=== PATIENT | male | born 1940 | race Two or more races ===

== ENCOUNTER 2016-11-29 13:57 | Inpatient (IN) | payer MEDICARE ==
[~2016-11-29] VITALS: Ht 167.6 cm; Wt 91.0 kg
[~2016-11-29 13:57] MED LIST: AMIT10TA PO; ASPI-482 PO; ASPI325T11 PO; ATOR10TA60 PO; FURO-68 PO; HYDR12.58 PO; MECL12.5 PO; METF500T4 PO; RANI150C PO; SITA1TAB7 PO; VALS160T3 PO
[2016-11-29 14:35] VITALS: BP 126/67
[2016-11-29] MEDS ORDERED: CLON0.1T PO (15:05)
[2016-11-29] MEDS ORDERED: FUROSEMIDE 40 MG/4 ML VIAL IVP ONE (15:30)
--- NOTE | 2016-11-29 15:52 | EKG ---
[facility] [address] [place] [address] Test Date: 2016-11-29 Test Time: 15:48:31 Pat Name: RAVI RICKS Department: Room: [facility] Gender: M Spray Gun Operator: JOSHUA : 1940 Requested By: DEBRA ARNOLD Order Number: [id number] Reading MD: Ashley Pollock Measurements Intervals Mcdade Rate: 107 P: 29 ME: 166 QRS: -64 QRSD: 92 T: 62 QT: 334 QTc: 445 Interpretive Statements SINUS TACHYCARDIA INCOMPLETE RIGHT BUNDLE BRANCH BLOCK QRS(T) CONTOUR ABNORMALITY CONSIDER INFERIOR INFARCT T ABNORMALITY IN HIGH LATERAL LEADS ABNORMAL ECG Electronically Signed On 12-01-2016 20:24:07 CRM ANALYST by Ashley Pollock
--- NOTE | 2016-11-29 16:03 | PDOC2 ---
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 Reports also of short distance NAVARRO including low weighted dumbbells inducing SOA. Denies any CP, palpitations. Denies any CAD, VTE, CHF. Denies any orthopnea, or PND. He went to his PCPs office today and was noted with tachycardia in the 120s. Denies any recreational drugs, excessive caffeinated beverages. Denies any recent falls or injury. No nausea vomiting or diarrhea PAST MEDICAL HISTORY Cardiovascular: HTN, Syncope, Hyperlipidemia GI: GERD Musculoskeletal: Osteoarthritis, Other (Polio) Infectious disease: Other Endocrine: Diabetes (2) PAST SURGICAL HISTORY Past Surgical History: Other (ankle surgeries) FAMILY HISTORY Family History: Coronary Artery Disease (mother SCD in her 30s) SOCIAL HISTORY Smoke: No (remote quit tobacco) ALCOHOL: none Drugs: None Lives: with Family CURRENT MEDICATIONS CURRENT MEDICATIONS Current Medications Medications (Trade) Dose Ordered Sig/Orin Route PRN Reason Start Time Stop Time Status Last Admin Dose Admin Furosemide (Lasix) 40 mg 1X ONCE IVP 11/29/16 15:30 11/29/16 15:36 DC 11/29/16 15:56 ALLERGIES ALLERGIES: Coded Allergies: No Known Drug Allergies (Unverified , 03/22/15) ROS Review of System 14 point ROS evaluated with pertinent positives noted per HPI PHYSICAL EXAM General: Alert, Oriented X3, Cooperative, No acute distress HEENT: Atraumatic, Mucous membr. moist/pink Lungs: Clear to auscultation, Normal air movement Heart: Regular rate (sinus tach), Normal S1, Normal S2, Other (2/6 systolic murmur to LLS border) Abdomen: Soft, No tenderness, Other (truncal obesity) Extremities: No cyanosis, Other (3+ bilateral LE pitting edema) Skin: No breakdown, No significant lesion Neuro: Normal speech, Sensation intact Psych/Mental Status: Mental status NL, Mood NL MUSCULOSKELETAL: Osteoarthritic changes both hands ECHOCARDIOGRAM ECHOCARDIOGRAM <Conclusion> The left ventricle is normal size. There is normal left ventricular wall thickness. The systolic function is normal with an ejection fraction of 60%. The diastolic function is normal There is no evidence of significant pericardial effusion. There is no mitral valve stenosis. Doppler and Color Flow revealed trace mitral regurgitation. The left atrium is of a normal size The aortic valve is normal in structure and function. The aortic valve is trileaflet. Doppler and Color Flow revealed no significant aortic regurgitation. There is no significant aortic valvular stenosis. The right ventricle is of a normal size with normal systolic function Doppler and Color Flow revealed trace tricuspid regurgitation. The PA pressure was estimated at 24 mmHg. The pulmonic valve is normal. DATE: 08/21/162132 ASSESSMENT/PLAN ASSESSMENT/PLAN 1. Sinus Tachycardia: Likely reactive/extracardiac. No CHF. Pro NT BNP 27. CP free. 2. Dyspnea on exertion with leg edema: deconditioning? venous insufficiency? TTE with normal PAP 2. HTN: controlled 3. HLP/DM2 4. Hx of syncope: 08/2016 no further episode 5. Hx of cirrhosis: remote ETOH Recommendations 1. EKG sinus tach with incomplete RBBB and LAFB. TTE with grade 1 diastolic dysfunction otherwise unremarkable for any significant changes. 2. TSH level 3. Venous Dopplex to LE, would recommend CTA if positive for VTE. Defer to PCP. Problems: ART BARRIENTOS MD 11/30/16 1507: CARDIAC CONSULT ALLERGIES ALLERGIES: Coded Allergies: No Known Drug Allergies (Unverified , 03/22/15) ASSESSMENT/PLAN ASSESSMENT/PLAN Patient seen and examined. Agree with WOUND CARE SPECIALIST's assessment and plan. Sinus tachycardia reactive. No clinical evidence for congestive heart failure. Agree with venous duplex scan to rule out venous reflux as a cause for lower extremity edema. 2-D echo showed normal LV function without any wall motion abnormalities. We'll consider ischemic evaluation in the form of stress test as an outpatient. Thank you for your consultation. Problems: DAMIAN MUÑOZ APRN Nov 29, 2016 16:03 ART BARRIENTOS MD Nov 30, 2016 15:07
--- NOTE | 2016-11-29 16:06 | RAD ---
EXAM: Chest one view. HISTORY: Congestive heart failure. COMPARISON: 08/20/2016. FINDINGS: A frontal view of the chest is obtained. There is an airspace opacity medially in the right base, increased since the prior study. There is no pneumothorax or pleural effusion. The heart is not enlarged. IMPRESSION: 1. Airspace opacity medially in the right base may indicate atelectasis or pneumonia. Follow-up to resolution is recommended.
[2016-11-29] MEDS ORDERED: POTASSIUM CHLORIDE 20 MEQ TABLET.ER. PO ONE (16:15)
[2016-11-29] MEDS ORDERED: DEXTROSE 50% 25 GM / 50ML DISP.SYRIN. IV PRN (16:15)
[2016-11-29] MEDS ORDERED: CLONIDINE HCL 0.1 MG TABLET PO PRN (16:15)
[2016-11-29 16:29] LABS: ALBUMIN 4.2 g/dL (3.4-5.0); ALBUMIN/GLOBULIN RATIO 1.1 (1.0-1.7); POTASSIUM 4.1 mmol/L (3.5-5.1); TOTAL BILIRUBIN 0.5 mg/dL (0.2-1.0)
--- NOTE | 2016-11-29 16:45 | CARD ---
APPROVED REPORT EXAM: Two-dimensional and M-mode echocardiogram with Doppler and color Doppler. Other Information Quality : GoodHR: 108bpm Rhythm : Tachycardia INDICATION Murmur RISK FACTORS Obesity 2D DIMENSIONS RVDd2.1 (2.9-3.5cm)Left Atrium(2D)2.4 (1.6-4.0cm) IVSd1.2 (0.7-1.1cm)Aortic Root(2D)2.5 (2.0-3.7cm) LVDd2.9 (3.9-5.9cm)LVOT Diameter2.1 (1.8-2.4cm) PWd1.1 (0.7-1.1cm)LVDs2.1 (2.5-4.0cm) FS (%) 28.9 %SV18.6 ml LVEF(%)57.2 (>50%) Aortic Valve AoV Peak Mode.162.9cm/sAoV VTI27.1cm AO Peak GR.10.6mmHgLVOT Peak Mode.140.6cm/s AO Mean GR.6mmHgAVA (VMAX)2.86cm2 Mitral Valve MV E Zwtgkgym84.5cm/sMV E Peak Gr.10mmHg MV DECEL [id number] A Fmtcaxrp090.7cm/s MV E Mean Gr.4mmHgE/A Ratio0.6 MV A [id number] Pulmonary Valve PV Peak Aydiepdj205.1cm/s Pulmonary Vein S1 Lgezxdyq83.3cm/sD2 Esuohuyj03.0cm/s PVa stolqvak97gpcf LEFT VENTRICLE The left ventricle cavity is small. There is mild concentric left ventricular hypertrophy. The left v entricular systolic function is normal and the ejection fraction is within normal range. The Ejection Fraction is 65-70%. There is normal LV segmental wall motion. Transmitral Doppler flow pattern is Gr eren I-abnormal relaxation pattern. RIGHT VENTRICLE The right ventricle is normal size. There is normal right ventricular wall thickness. The right ventr icular systolic function is normal. ATRIA The left atrium size is normal. The right atrium size is normal. The interatrial septum is intact wit h no evidence for an atrial septal defect or patent foramen ovale as noted on 2-D or Doppler imaging. AORTIC VALVE The aortic valve is mildly sclerotic. Doppler and Color Flow revealed no significant aortic regurgita tion. There is no significant aortic valvular stenosis. MITRAL VALVE The mitral valve leaflets are thickened. There is no evidence of mitral valve prolapse. There is no m itral valve stenosis. Doppler and Color Flow revealed no mitral valve regurgitation noted. TRICUSPID VALVE The tricuspid valve is normal in structure and function. Doppler and Color Flow revealed no tricuspid valve regurgitation noted. PULMONIC VALVE Doppler and Color Flow revealed no pulmonic valvular regurgitation. There is no pulmonic valvular wilfredo nosis. GREAT VESSELS The aortic root is normal in size. The ascending aorta is normal in size. The IVC is normal in size a nd collapses >50% with inspiration. PERICARDIAL EFFUSION There is no evidence of significant pericardial effusion. Critical Notification Critical Value: No <Conclusion> The left ventricular systolic function is normal and the ejection fraction is within normal range. Th e Ejection Fraction is 65-70%. There is normal LV segmental wall motion.
[2016-11-29] MEDS: INSULIN ASPART 300 UNITS/3 ML INSULN.PEN SQ SCH (17:00)
[2016-11-29] MEDS: METFORMIN 500 MG TABLET. PO SCH (18:18)
[2016-11-29 19:58] VITALS: BP 141/73
[2016-11-29 21:16] LABS: BASO % 1 % (0-3); EOS % 0 % (0-3); HEMOGLOBIN 15.4 g/dL (13.0-17.5); LYMPH # 1.6 x10^3/uL (1.0-4.8); LYMPH % 15 % (24-48); MEAN CORPUSCULAR HEMOGLOBIN 31 pg (25-35); MEAN CORPUSCULAR HGB CONC 33 g/dL (31-37); MEAN CORPUSCULAR VOLUME 92 fL (79-100); MONO % 6 % (0-9); NEUT % 79 % (31-73); PLATELET COUNT 324 x10^3/uL (140-400); RED BLOOD COUNT 4.98 x10^6/uL (4.30-5.70); WHITE BLOOD COUNT 10.6 x10^3/uL (4.0-11.0)
[2016-11-29] MEDS: AMITRIPTYLINE HCL 10 MG TABLET PO SCH (21:18)
[2016-11-29] MEDS: FAMOTIDINE 20 MG TABLET. PO SCH (21:18)
[2016-11-29] MEDS: ATORVASTATIN CALCIUM 10 MG TABLET. PO SCH (21:18)
[2016-11-29 23:15] VITALS: BP 124/73
[2016-11-30 03:13] VITALS: BP 112/67
[2016-11-30 06:06] LABS: CALCIUM 10.3 mg/dL (8.5-10.1); CREATININE 0.9 mg/dL (0.7-1.3); GFR 82.5; POTASSIUM 4.4 mmol/L (3.5-5.1)
[2016-11-30 06:18] LABS: BASO % 0 % (0-3); EOS % 1 % (0-3); HEMOGLOBIN 12.1 g/dL (13.0-17.5); LYMPH # 1.8 x10^3/uL (1.0-4.8); LYMPH % 17 % (24-48); MEAN CORPUSCULAR HEMOGLOBIN 30 pg (25-35); MEAN CORPUSCULAR HGB CONC 34 g/dL (31-37); MEAN CORPUSCULAR VOLUME 89 fL (79-100); MONO % 8 % (0-9); NEUT % 74 % (31-73); PLATELET COUNT 275 x10^3/uL (140-400); RED BLOOD COUNT 4.04 x10^6/uL (4.30-5.70); RED CELL DISTRIBUTION WIDTH 13.4 % (11.5-14.5)
[2016-11-30 07:00] VITALS: BP 146/73
--- NOTE | 2016-11-30 07:54 | RAD ---
Portable chest, 11/30/2016: History: Congestive heart failure Comparison is made to yesterday's study. The heart size and pulmonary vascularity are normal. The right base is now clear. No acute infiltrates are seen. There is no evidence of pleural fluid. IMPRESSION: No acute abnormality is detected.
[2016-11-30] MEDS: INSULIN ASPART 300 UNITS/3 ML INSULN.PEN SQ SCH ×3 (08:00→17:50)
--- NOTE | 2016-11-30 08:12 | PDOC1 ---
HISTORY AND PHYSICAL Chief Complaint Chief Complaint This 76 year old male has been admitted with a chief complaint of rapid heart rate and lower extremity swelling. He was seen by Dr. Yoo in the office yesterday and his swelling was worse. He gives h/o worsening dyspnea on exertion with use accessory muscles after less than 15ft ambulation. An EKG revealed ST and he had increased bilateral lower extremity edema. He was directly admitted to [facility] with acute on chronic systolic CHF. 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 He walks with walker in attempt to strengthen lower extremity strength. 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 Medications Medications reviewed and reconciled Allergy Allergies Coded Allergies Type Severity Reaction Last Updated Verified No Known Drug Allergies 03/22/15 No Physical Exam Physical Exam General appearance - alert, chronically ill appearing, and in no distress Mental Status - alert, oriented to person, place, and time, affect appropriate to mood Head - normal Chest - clear to auscultation, no wheezes, rales or rhonchi, symmetric air entry Heart - S1 and S2 normal Abdomen - soft, nontender, nondistended, obese, BS+ Neurological - no acute focal neurological deficit noted Musculoskeletal - atrophy bilateral lower leg muscles Extremities - no pedal edema Skin - warm and dry VTE Prophylaxis Ordered VTE Prophylaxis Devices: Yes VTE Pharmacological Prophylaxi: Yes Assessment Labs Laboratory Tests Test 11/29/16 16:00 11/29/16 16:38 11/29/16 20:30 11/29/16 21:19 Sodium Level 143mmol/L (136-145) Potassium Level 4.1mmol/L (3.5-5.1) Chloride Level 104mmol/L (98-107) Carbon Dioxide Level 27mmol/L (21-32) Anion Gap 12 (6-14) Blood Urea Nitrogen 25mg/dL (8-26) Creatinine 1.0mg/dL (0.7-1.3) Estimated GFR (Cockcroft-Gault) 73.0 BUN/Creatinine Ratio 25 (6-20) Glucose Level 156mg/dL (70-99) Calcium Level 10.0mg/dL (8.5-10.1) Total Bilirubin 0.5mg/dL (0.2-1.0) Aspartate Amino Transf (AST/SGOT) 19U/L (15-37) Alanine Aminotransferase (ALT/SGPT) 35U/L (16-63) Alkaline Phosphatase 78U/L (46-116) Troponin I Quantitative < 0.017ng/mL (0.000-0.055) CY-Sdt-L-Type Natriuretic Peptide 27pg/mL (0-124) Total Protein 8.0g/dL (6.4-8.2) Albumin 4.2g/dL (3.4-5.0) Albumin/Globulin Ratio 1.1 (1.0-1.7) Glucose (Fingerstick) 150mg/dL (70-99) 187mg/dL (70-99) White Blood Count 10.6x10^3/uL (4.0-11.0) Red Blood Count 4.98x10^6/uL (4.30-5.70) Hemoglobin 15.4g/dL (13.0-17.5) Hematocrit 46.0% (39.0-53.0) Mean Corpuscular Volume 92fL (79-100) Mean Corpuscular Hemoglobin 31pg (25-35) Mean Corpuscular Hemoglobin Concent 33g/dL (31-37) Red Cell Distribution Width 14.0% (11.5-14.5) Platelet Count 324x10^3/uL (140-400) Neutrophils (%) (Auto) 79% (31-73) Lymphocytes (%) (Auto) 15% (24-48) Monocytes (%) (Auto) 6% (0-9) Eosinophils (%) (Auto) 0% (0-3) Basophils (%) (Auto) 1% (0-3) Neutrophils # (Auto) 8.4x10^3uL (1.8-7.7) Lymphocytes # (Auto) 1.6x10^3/uL (1.0-4.8) Monocytes # (Auto) 0.6x10^3/uL (0.0-1.1) Eosinophils # (Auto) 0.0x10^3/uL (0.0-0.7) Basophils # (Auto) 0.0x10^3/uL (0.0-0.2) D-Dimer (Rianna) < 0.27ug/mlFEU (0.00-0.50) Test 11/30/16 04:30 White Blood Count 11.0x10^3/uL (4.0-11.0) Red Blood Count 4.04x10^6/uL (4.30-5.70) Hemoglobin 12.1g/dL (13.0-17.5) Hematocrit 36.0% (39.0-53.0) Mean Corpuscular Volume 89fL (79-100) Mean Corpuscular Hemoglobin 30pg (25-35) Mean Corpuscular Hemoglobin Concent 34g/dL (31-37) Red Cell Distribution Width 13.4% (11.5-14.5) Platelet Count 275x10^3/uL (140-400) Neutrophils (%) (Auto) 74% (31-73) Lymphocytes (%) (Auto) 17% (24-48) Monocytes (%) (Auto) 8% (0-9) Eosinophils (%) (Auto) 1% (0-3) Basophils (%) (Auto) 0% (0-3) Neutrophils # (Auto) 8.1x10^3uL (1.8-7.7) Lymphocytes # (Auto) 1.8x10^3/uL (1.0-4.8) Monocytes # (Auto) 0.9x10^3/uL (0.0-1.1) Eosinophils # (Auto) 0.1x10^3/uL (0.0-0.7) Basophils # (Auto) 0.0x10^3/uL (0.0-0.2) Sodium Level 142mmol/L (136-145) Potassium Level 4.4mmol/L (3.5-5.1) Chloride Level 101mmol/L (98-107) Carbon Dioxide Level 26mmol/L (21-32) Anion Gap 15 (6-14) Blood Urea Nitrogen 25mg/dL (8-26) Creatinine 0.9mg/dL (0.7-1.3) Estimated GFR (Cockcroft-Gault) 82.5 Glucose Level 152mg/dL (70-99) Calcium Level 10.3mg/dL (8.5-10.1) Laboratory Tests Test 11/29/16 16:00 11/29/16 16:38 11/29/16 20:30 11/29/16 21:19 Sodium Level 143mmol/L (136-145) Potassium Level 4.1mmol/L (3.5-5.1) Chloride Level 104mmol/L (98-107) Carbon Dioxide Level 27mmol/L (21-32) Anion Gap 12 (6-14) Blood Urea Nitrogen 25mg/dL (8-26) Creatinine 1.0mg/dL (0.7-1.3) Estimated GFR (Cockcroft-Gault) 73.0 BUN/Creatinine Ratio 25 (6-20) Glucose Level 156mg/dL (70-99) Calcium Level 10.0mg/dL (8.5-10.1) Total Bilirubin 0.5mg/dL (0.2-1.0) Aspartate Amino Transf (AST/SGOT) 19U/L (15-37) Alanine Aminotransferase (ALT/SGPT) 35U/L (16-63) Alkaline Phosphatase 78U/L (46-116) Troponin I Quantitative < 0.017ng/mL (0.000-0.055) DP-Rtf-S-Type Natriuretic Peptide 27pg/mL (0-124) Total Protein 8.0g/dL (6.4-8.2) Albumin 4.2g/dL (3.4-5.0) Albumin/Globulin Ratio 1.1 (1.0-1.7) Glucose (Fingerstick) 150mg/dL (70-99) 187mg/dL (70-99) White Blood Count 10.6x10^3/uL (4.0-11.0) Red Blood Count 4.98x10^6/uL (4.30-5.70) Hemoglobin 15.4g/dL (13.0-17.5) Hematocrit 46.0% (39.0-53.0) Mean Corpuscular Volume 92fL (79-100) Mean Corpuscular Hemoglobin 31pg (25-35) Mean Corpuscular Hemoglobin Concent 33g/dL (31-37) Red Cell Distribution Width 14.0% (11.5-14.5) Platelet Count 324x10^3/uL (140-400) Neutrophils (%) (Auto) 79% (31-73) Lymphocytes (%) (Auto) 15% (24-48) Monocytes (%) (Auto) 6% (0-9) Eosinophils (%) (Auto) 0% (0-3) Basophils (%) (Auto) 1% (0-3) Neutrophils # (Auto) 8.4x10^3uL (1.8-7.7) Lymphocytes # (Auto) 1.6x10^3/uL (1.0-4.8) Monocytes # (Auto) 0.6x10^3/uL (0.0-1.1) Eosinophils # (Auto) 0.0x10^3/uL (0.0-0.7) Basophils # (Auto) 0.0x10^3/uL (0.0-0.2) D-Dimer (Rianna) < 0.27ug/mlFEU (0.00-0.50) Test 11/30/16 04:30 White Blood Count 11.0x10^3/uL (4.0-11.0) Red Blood Count 4.04x10^6/uL (4.30-5.70) Hemoglobin 12.1g/dL (13.0-17.5) Hematocrit 36.0% (39.0-53.0) Mean Corpuscular Volume 89fL (79-100) Mean Corpuscular Hemoglobin 30pg (25-35) Mean Corpuscular Hemoglobin Concent 34g/dL (31-37) Red Cell Distribution Width 13.4% (11.5-14.5) Platelet Count 275x10^3/uL (140-400) Neutrophils (%) (Auto) 74% (31-73) Lymphocytes (%) (Auto) 17% (24-48) Monocytes (%) (Auto) 8% (0-9) Eosinophils (%) (Auto) 1% (0-3) Basophils (%) (Auto) 0% (0-3) Neutrophils # (Auto) 8.1x10^3uL (1.8-7.7) Lymphocytes # (Auto) 1.8x10^3/uL (1.0-4.8) Monocytes # (Auto) 0.9x10^3/uL (0.0-1.1) Eosinophils # (Auto) 0.1x10^3/uL (0.0-0.7) Basophils # (Auto) 0.0x10^3/uL (0.0-0.2) Sodium Level 142mmol/L (136-145) Potassium Level 4.4mmol/L (3.5-5.1) Chloride Level 101mmol/L (98-107) Carbon Dioxide Level 26mmol/L (21-32) Anion Gap 15 (6-14) Blood Urea Nitrogen 25mg/dL (8-26) Creatinine 0.9mg/dL (0.7-1.3) Estimated GFR (Cockcroft-Gault) 82.5 Glucose Level 152mg/dL (70-99) Calcium Level 10.3mg/dL (8.5-10.1) Plan Plan 1. ST with progressive dyspnea on exertion 2. Chronic diastolic CHF normal EF not acute 3. Edema lower extremities 4. 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 hyperlipidemia 7. late effects poliomyelitis 8. h/o sleep apnea 9. GERD 10, OA PLAN: ST BS tele SR 80s diastolic CHF not acute BNP 27 Current Lasix 40mg po and HCTZ 12.5mg (diovan/HCTZ combo) Admit wt 204.6# Edema LE resolved this AM abnormal CXR progressive dyspnea with exertion consult pulmonary DM II FSBS/SSI BS 150-187 DVT/GI prophylaxis lovenox pepcid For more details regarding further plans, please refer to the orders. VINEET SIMON APRN Nov 30, 2016 08:12
[2016-11-30] MEDS ORDERED: FUROSEMIDE 40 MG TABLET PO SCH (09:00)
[2016-11-30] MEDS: METFORMIN 500 MG TABLET. PO SCH (09:01)
[2016-11-30] MEDS: HYDROCHLOROTHIAZIDE 12.5 MG CAPSULE. PO SCH (09:01)
[2016-11-30] MEDS: FAMOTIDINE 20 MG TABLET. PO SCH ×4 (09:01→20:54)
[2016-11-30] MEDS: LINAGLIPTIN 5 MG TABLET PO SCH (09:02)
[2016-11-30] MEDS: ASPIRIN ENTERIC COATED 325 MG TABLET.DR. PO SCH (09:02)
[2016-11-30] MEDS: LOSARTAN POTASSIUM 50 MG TABLET. PO SCH (09:02)
[2016-11-30] MEDS: POTASSIUM CHLORIDE 20 MEQ TABLET.ER. PO SCH (09:02)
[2016-11-30] MEDS: FUROSEMIDE 20 MG/2 ML VIAL IVP SCH ×2 (09:02→14:51)
[2016-11-30] MEDS: ENOXAPARIN 40 MG/0.4 ML DISP.SYRIN. SQ SCH (09:03)
--- NOTE | 2016-11-30 10:41 | DISCH ---
DISCHARGE FINAL DIAGNOSIS Problems Medical Problems: (1) CHF (congestive heart failure) Status: Acute CONDITION ON DISCHARGE: Stable HOME HEALTH: Yes PT. HAS FUNCTIONAL LIMITATIONS: Yes FACE TO FACE ENCOUNTER: Yes POST DISCHARGE ORDERS ACTIVITY ORDERS: Activity as tolerated WEIGHT BEARING STATUS: As tolerated DIET AFTER DISCHARGE: Cardiac FOLLOW-UP PHYSICIAN FOLLOW-UP: Dr. Yoo 3-5 days TREATMENT/EQUIPMENT ORDERS ADAPTIVE EQUIPMENT NEEDED: VINEET Devi APRN Nov 30, 2016 10:41
[2016-11-30] MEDS ORDERED: VALS1TAB8 PO (10:44)
[2016-11-30] MEDS ORDERED: POTA20TA4 PO (10:44)
[2016-11-30] MEDS ORDERED: FURO-69 PO (10:44)
--- NOTE | 2016-11-30 10:47 | DISCH ---
DISCHARGE WITH HOME HEALTH DISCHARGE INFORMATION: Final Diagnosis: Problems Medical Problems: (1) CHF (congestive heart failure) Status: Acute Condition on Discharge: Stable HOME HEALTH: Face to Face: I certify this patient is under my care and that I, or a nurse practitioner or physician's assistant spa manager working with me, had a face to face encounter that meets the physician face to face encounter requirements with this patient on 11/30/16. Medical Condition(s): CHF Custodial For: Assess Cardiopulm Status Physical Therapy For: Evalulation/Treatment Occupational Therapy For: Evaluation/Treatment Patient meets Homebound Statu: Extreme weakness w/ amb. FOLLOW-UP: Follow up with: Dr. Yoo in 3-5 days TREATMENT/EQUIPMENT ORDERS Adaptive Equipment Issued: Devin CERTIFICATION STATEMENT: Certification Statement: Certification Statement: Based on the above finding, I certify that this patient is confined to the home and needs intermittent group home care, physical therapy and/or speech therapy, or continues to need occupational therapy.~ This patient is under my care, and I have initiated the establishment of the plan of care.~ This patient will be followed by myself or a community physician who will periodically review the plan of care. VINEET SIMON APRN Nov 30, 2016 10:47
[2016-11-30 10:56] VITALS: BP 144/83
--- NOTE | 2016-11-30 11:47 | PDOC ---
Provider Note Provider Note dictated STALIN JAY MD Nov 30, 2016 11:47
[2016-11-30] MEDS ORDERED: CONTRAST GIVEN MC PRN (12:00)
--- NOTE | 2016-11-30 12:28 | CONS ---
DATE OF CONSULTATION: ATTENDING PHYSICIAN: Dr. Yoo. REASON FOR CONSULTATION: Dyspnea. HISTORY OF PRESENT ILLNESS: The patient is a pleasant 76-year-old male who smoked for about 24 years before quitting more than 30 years ago. He used to be an alcoholic, but he quit drinking 33 years ago. He was brought into the hospital complaining of mild lower extremity swelling and also has been short of breath for the past 2 months. He has no chest pain, no wheezing, no cough, no fever, no chills. He complained of a rapid heart rate. The patient had echocardiogram done, which showed no evidence of any LV dysfunction. Valves looked normal. His venous Dopplers were negative for DVT as well. His chest x-ray has been reviewed by me and it appears to be clear. He did gain 9 pounds in the last few months. PAST MEDICAL HISTORY: History of hypertension, syncope, hyperlipidemia and history of sleep apnea, but insurance did not qualify for CPAP, history of diverticulosis, history of cirrhosis, history of low back pain, osteoarthritis, and type 2 diabetes. PAST SURGICAL HISTORY: None. ALLERGIES: None. MEDICATIONS: All reviewed as listed in the MRAD including Lovenox for DVT prophylaxis. REVIEW OF SYSTEMS: Twelve-point systems obtained. Pertinent positives discussed in history of present illness, otherwise noncontributory. All systems that were negative were reviewed as well. SOCIAL HISTORY: Smoked for 24 years before quitting 30 years ago and he used to drink alcohol heavily, but quit 33 years ago as well. PHYSICAL EXAMINATION: VITAL SIGNS: Blood pressure 144/83, pulse of 95% on room air, afebrile. HEENT: Sclerae nonicteric. NECK: Supple. LUNGS: Diminished breath sounds posteriorly, but clear anteriorly. CARDIOVASCULAR: Regular rate. ABDOMEN: Soft, distended secondary to obesity. EXTREMITIES: With trace pitting edema. LABORATORY DATA: Reviewed. White cell count 11.0, hemoglobin 12.1 and platelets are 275. His chemistries with a BUN 25, creatinine 0.9. His AST 19, ALT 35, and bilirubin 0.5. IMPRESSION: 1. Unexplained dyspnea for the past 2 months. Chest x-ray without any congestive heart failure. Echo is normal. I suspect the etiology could be physical deconditioning related to sedentary lifestyle and weight gain of 9 pounds in last 2 months. However, the possibility of thromboembolic disease cannot be ruled out. He has history of cirrhosis, but his LFTs and coags are normal. The possibility of hepatopulmonary syndrome would also be in the differential diagnosis. 2. History of tobacco use for 24 years, but quit 30 years ago. 3. History of alcoholism, but quit 30 years ago. RECOMMENDATIONS: 1. We will do a 6-minute walk test, if he can ambulate for [address] angiogram. 3. Ultrasound of the liver. 4. We will do PFTs as an outpatient. 5. We will make further recommendations after review of the above tests. STALIN JYA MD DR: MELISSA/ki JOB#: [id number] / [id number] HONG
[2016-11-30 12:32] LABS: HEMATOCRIT 43.5 % (39.0-53.0); HEMOGLOBIN 14.3 g/dL (13.0-17.5)
[2016-11-30] MEDS ORDERED: IOHEXOL 300 MG/ML 75 ML VIAL IV ONE (13:00)
[2016-11-30 15:08] VITALS: BP 166/80
--- NOTE | 2016-11-30 15:19 | RAD ---
PQRS Compliance Statement: One or more of the following individualized dose reduction techniques were utilized for this examination: 1. Automated exposure control 2. Adjustment of the mA and/or kV according to patient size 3. Use of iterative reconstruction technique CTA of the chest with contrast, 11/30/2016: History: Shortness of breath, tachycardia, leg swelling Multidetector CT imaging was performed following an IV bolus injection of iodinated contrast material. Multiplanar reconstructions were produced including coronal MIP images. The main pulmonary artery is slightly enlarged. No filling defects are seen within the central pulmonary arteries to suggest pulmonary emboli. There is calcific plaquing of the thoracic aorta without evidence of aneurysm. Minimal coronary artery calcification is present. The heart is not enlarged. Small mediastinal lymph nodes are noted without definite pathologic enlargement. No hilar adenopathy is seen. There is a calcified granuloma in the left lower lobe. There are mild scattered linear opacities, particularly in the lower lobes compatible with atelectasis and/or scarring. No pulmonary mass or significant consolidation is seen. There is no evidence of pleural fluid. Incidental note is made of several small intrarenal calculi on the right. Two small well-defined low density hepatic lesions are probably cysts. There is a mild thoracolumbar scoliosis with moderate multilevel degenerative change. IMPRESSION: 1. No CT evidence of central pulmonary emboli. 2. Mild bibasilar linear atelectasis and/or scarring. 3. Minimal coronary artery calcification. 4. Small right intrarenal calculi. 5. Hepatic cysts.
[2016-11-30] MEDS: ACETAMINOPHEN 325 MG TABLET. PO PRN (19:13)
[2016-11-30 19:50] VITALS: BP 136/73
[2016-11-30] MEDS: AMITRIPTYLINE HCL 10 MG TABLET PO SCH (20:49)
[2016-11-30] MEDS: ATORVASTATIN CALCIUM 10 MG TABLET. PO SCH (20:49)
[2016-11-30 23:38] VITALS: BP 145/67
[2016-12-01 03:50] VITALS: BP 139/73
[2016-12-01 06:22] LABS: BASO % 1 % (0-3); EOS % 2 % (0-3); HEMATOCRIT 44.2 % (39.0-53.0); HEMOGLOBIN 14.6 g/dL (13.0-17.5); LYMPH # 2.5 x10^3/uL (1.0-4.8); LYMPH % 30 % (24-48); MEAN CORPUSCULAR HEMOGLOBIN 31 pg (25-35); MEAN CORPUSCULAR HGB CONC 33 g/dL (31-37); MEAN CORPUSCULAR VOLUME 93 fL (79-100); MONO % 7 % (0-9); NEUT % 60 % (31-73); PLATELET COUNT 284 x10^3/uL (140-400); RED BLOOD COUNT 4.77 x10^6/uL (4.30-5.70); RED CELL DISTRIBUTION WIDTH 14.6 % (11.5-14.5); WHITE BLOOD COUNT 8.4 x10^3/uL (4.0-11.0)
[2016-12-01 06:37] LABS: CALCIUM 9.7 mg/dL (8.5-10.1); CREATININE 0.7 mg/dL (0.7-1.3); GFR 110.2; MAGNESIUM 2.2 mg/dL (1.8-2.4); POTASSIUM 3.2 mmol/L (3.5-5.1)
[2016-12-01 07:12] VITALS: BP 135/81
[2016-12-01] MEDS: POTASSIUM CHLORIDE 20 MEQ TABLET.ER. PO SCH (08:00)
[2016-12-01] MEDS: HYDROCHLOROTHIAZIDE 12.5 MG CAPSULE. PO SCH (08:58)
[2016-12-01] MEDS: LOSARTAN POTASSIUM 50 MG TABLET. PO SCH (08:58)
[2016-12-01] MEDS: ASPIRIN ENTERIC COATED 325 MG TABLET.DR. PO SCH (08:58)
[2016-12-01] MEDS: LINAGLIPTIN 5 MG TABLET PO SCH (08:59)
[2016-12-01] MEDS: FAMOTIDINE 20 MG TABLET. PO SCH ×3 (08:59→20:59)
[2016-12-01] MEDS: ENOXAPARIN 40 MG/0.4 ML DISP.SYRIN. SQ SCH (08:59)
[2016-12-01] MEDS: INSULIN ASPART 300 UNITS/3 ML INSULN.PEN SQ SCH ×3 (09:03→17:00)
--- NOTE | 2016-12-01 09:45 | PDOC ---
PULMONARY PROGRESS NOTES Subjective no soa at rest Vitals Vital Signs Date Time Temp Pulse Resp B/P Pulse Ox O2 Delivery O2 Flow Rate FiO2 12/01/16 08:58 95 135/81 12/01/16 08:00 Room Air 12/01/16 07:12 97.2 18 95 97.2 General: Alert, No acute distress Lungs: Clear Cardiovascular: S1 Abdomen: Soft, Other (obese) Neuro Exam: Alert Extremities: No Edema Skin: Warm Labs Laboratory Tests Test 11/29/16 16:00 11/29/16 16:38 11/29/16 20:30 11/29/16 21:19 Sodium Level 143mmol/L (136-145) Potassium Level 4.1mmol/L (3.5-5.1) Chloride Level 104mmol/L (98-107) Carbon Dioxide Level 27mmol/L (21-32) Anion Gap 12 (6-14) Blood Urea Nitrogen 25mg/dL (8-26) Creatinine 1.0mg/dL (0.7-1.3) Estimated GFR (Cockcroft-Gault) 73.0 BUN/Creatinine Ratio 25 (6-20) Glucose Level 156mg/dL (70-99) Calcium Level 10.0mg/dL (8.5-10.1) Total Bilirubin 0.5mg/dL (0.2-1.0) Aspartate Amino Transf (AST/SGOT) 19U/L (15-37) Alanine Aminotransferase (ALT/SGPT) 35U/L (16-63) Alkaline Phosphatase 78U/L (46-116) Troponin I Quantitative < 0.017ng/mL (0.000-0.055) ZZ-Nzy-V-Type Natriuretic Peptide 27pg/mL (0-124) Total Protein 8.0g/dL (6.4-8.2) Albumin 4.2g/dL (3.4-5.0) Albumin/Globulin Ratio 1.1 (1.0-1.7) Glucose (Fingerstick) 150mg/dL (70-99) 187mg/dL (70-99) White Blood Count 10.6x10^3/uL (4.0-11.0) Red Blood Count 4.98x10^6/uL (4.30-5.70) Hemoglobin 15.4g/dL (13.0-17.5) Hematocrit 46.0% (39.0-53.0) Mean Corpuscular Volume 92fL (79-100) Mean Corpuscular Hemoglobin 31pg (25-35) Mean Corpuscular Hemoglobin Concent 33g/dL (31-37) Red Cell Distribution Width 14.0% (11.5-14.5) Platelet Count 324x10^3/uL (140-400) Neutrophils (%) (Auto) 79% (31-73) Lymphocytes (%) (Auto) 15% (24-48) Monocytes (%) (Auto) 6% (0-9) Eosinophils (%) (Auto) 0% (0-3) Basophils (%) (Auto) 1% (0-3) Neutrophils # (Auto) 8.4x10^3uL (1.8-7.7) Lymphocytes # (Auto) 1.6x10^3/uL (1.0-4.8) Monocytes # (Auto) 0.6x10^3/uL (0.0-1.1) Eosinophils # (Auto) 0.0x10^3/uL (0.0-0.7) Basophils # (Auto) 0.0x10^3/uL (0.0-0.2) D-Dimer (Rianna) < 0.27ug/mlFEU (0.00-0.50) Test 11/30/16 04:30 11/30/16 07:28 11/30/16 11:54 11/30/16 12:15 White Blood Count 11.0x10^3/uL (4.0-11.0) Red Blood Count 4.04x10^6/uL (4.30-5.70) Hemoglobin 12.1g/dL (13.0-17.5) 14.3g/dL (13.0-17.5) Hematocrit 36.0% (39.0-53.0) 43.5% (39.0-53.0) Mean Corpuscular Volume 89fL (79-100) Mean Corpuscular Hemoglobin 30pg (25-35) Mean Corpuscular Hemoglobin Concent 34g/dL (31-37) Red Cell Distribution Width 13.4% (11.5-14.5) Platelet Count 275x10^3/uL (140-400) Neutrophils (%) (Auto) 74% (31-73) Lymphocytes (%) (Auto) 17% (24-48) Monocytes (%) (Auto) 8% (0-9) Eosinophils (%) (Auto) 1% (0-3) Basophils (%) (Auto) 0% (0-3) Neutrophils # (Auto) 8.1x10^3uL (1.8-7.7) Lymphocytes # (Auto) 1.8x10^3/uL (1.0-4.8) Monocytes # (Auto) 0.9x10^3/uL (0.0-1.1) Eosinophils # (Auto) 0.1x10^3/uL (0.0-0.7) Basophils # (Auto) 0.0x10^3/uL (0.0-0.2) Sodium Level 142mmol/L (136-145) Potassium Level 4.4mmol/L (3.5-5.1) Chloride Level 101mmol/L (98-107) Carbon Dioxide Level 26mmol/L (21-32) Anion Gap 15 (6-14) Blood Urea Nitrogen 25mg/dL (8-26) Creatinine 0.9mg/dL (0.7-1.3) Estimated GFR (Cockcroft-Gault) 82.5 Glucose Level 152mg/dL (70-99) Calcium Level 10.3mg/dL (8.5-10.1) Glucose (Fingerstick) 117mg/dL (70-99) 179mg/dL (70-99) Test 11/30/16 16:40 11/30/16 20:55 12/01/16 05:45 12/01/16 07:54 Glucose (Fingerstick) 157mg/dL (70-99) 162mg/dL (70-99) 156mg/dL (70-99) White Blood Count 8.4x10^3/uL (4.0-11.0) Red Blood Count 4.77x10^6/uL (4.30-5.70) Hemoglobin 14.6g/dL (13.0-17.5) Hematocrit 44.2% (39.0-53.0) Mean Corpuscular Volume 93fL (79-100) Mean Corpuscular Hemoglobin 31pg (25-35) Mean Corpuscular Hemoglobin Concent 33g/dL (31-37) Red Cell Distribution Width 14.6% (11.5-14.5) Platelet Count 284x10^3/uL (140-400) Neutrophils (%) (Auto) 60% (31-73) Lymphocytes (%) (Auto) 30% (24-48) Monocytes (%) (Auto) 7% (0-9) Eosinophils (%) (Auto) 2% (0-3) Basophils (%) (Auto) 1% (0-3) Neutrophils # (Auto) 5.1x10^3uL (1.8-7.7) Lymphocytes # (Auto) 2.5x10^3/uL (1.0-4.8) Monocytes # (Auto) 0.6x10^3/uL (0.0-1.1) Eosinophils # (Auto) 0.1x10^3/uL (0.0-0.7) Basophils # (Auto) 0.0x10^3/uL (0.0-0.2) Sodium Level 141mmol/L (136-145) Potassium Level 3.2mmol/L (3.5-5.1) Chloride Level 104mmol/L (98-107) Carbon Dioxide Level 23mmol/L (21-32) Anion Gap 14 (6-14) Blood Urea Nitrogen 27mg/dL (8-26) Creatinine 0.7mg/dL (0.7-1.3) Estimated GFR (Cockcroft-Gault) 110.2 Glucose Level 141mg/dL (70-99) Calcium Level 9.7mg/dL (8.5-10.1) Magnesium Level 2.2mg/dL (1.8-2.4) Laboratory Tests Test 11/30/16 11:54 11/30/16 12:15 11/30/16 16:40 11/30/16 20:55 Glucose (Fingerstick) 179mg/dL (70-99) 157mg/dL (70-99) 162mg/dL (70-99) Hemoglobin 14.3g/dL (13.0-17.5) Hematocrit 43.5% (39.0-53.0) Test 12/01/16 05:45 12/01/16 07:54 White Blood Count 8.4x10^3/uL (4.0-11.0) Red Blood Count 4.77x10^6/uL (4.30-5.70) Hemoglobin 14.6g/dL (13.0-17.5) Hematocrit 44.2% (39.0-53.0) Mean Corpuscular Volume 93fL (79-100) Mean Corpuscular Hemoglobin 31pg (25-35) Mean Corpuscular Hemoglobin Concent 33g/dL (31-37) Red Cell Distribution Width 14.6% (11.5-14.5) Platelet Count 284x10^3/uL (140-400) Neutrophils (%) (Auto) 60% (31-73) Lymphocytes (%) (Auto) 30% (24-48) Monocytes (%) (Auto) 7% (0-9) Eosinophils (%) (Auto) 2% (0-3) Basophils (%) (Auto) 1% (0-3) Neutrophils # (Auto) 5.1x10^3uL (1.8-7.7) Lymphocytes # (Auto) 2.5x10^3/uL (1.0-4.8) Monocytes # (Auto) 0.6x10^3/uL (0.0-1.1) Eosinophils # (Auto) 0.1x10^3/uL (0.0-0.7) Basophils # (Auto) 0.0x10^3/uL (0.0-0.2) Sodium Level 141mmol/L (136-145) Potassium Level 3.2mmol/L (3.5-5.1) Chloride Level 104mmol/L (98-107) Carbon Dioxide Level 23mmol/L (21-32) Anion Gap 14 (6-14) Blood Urea Nitrogen 27mg/dL (8-26) Creatinine 0.7mg/dL (0.7-1.3) Estimated GFR (Cockcroft-Gault) 110.2 Glucose Level 141mg/dL (70-99) Calcium Level 9.7mg/dL (8.5-10.1) Magnesium Level 2.2mg/dL (1.8-2.4) Glucose (Fingerstick) 156mg/dL (70-99) Medications Active Scripts Medications Dose Route/Sig Days Date Category Klor-Con M20 (Potassium Chloride) 20 Meq Tab.er.prt 20 Meq PO [id number] 11/30/16 Rx Diovan Hct 160-12.5 Mg Tab (Valsartan/Hydrochlorothiazide) 1 Each Tablet 1 Tab PO DAILY 11/30/16 Rx Lasix (Furosemide) 20 Mg Tablet 1 Tab PO BID 11/30/16 Rx Aspirin Ec (Aspirin) 325 Mg Tablet.dr 325 Mg PO DAILY 30 08/22/16 Rx Janumet 50-500 Mg Tablet (Sitagliptin Phos/Metformin Hcl) 1 Each Tablet 1 Tab PO BID 08/21/16 Reported Atorvastatin Calcium 10 Mg Tablet 10 Mg PO HS 08/21/16 Reported Amitriptyline Hcl 10 Mg Tablet 10 Mg PO DAILY 12/09/13 Reported Ranitidine Hcl 150 Mg Capsule 150 Mg PO BID 12/09/13 Reported Impression . 1. dyspnea for the past 2 months. Chest x-ray without any congestive heart failure. Echo is normal. etiology is most likely due to physical deconditioning related to sedentary lifestyle and weight gain of 9 pounds in last 2 months. No evidence of thromboembolic disease He has history of cirrhosis, but his LFTs and coags are normal. The possibility of hepatopulmonary syndrome is less likely. No sig. pulmonary HTN 2. History of tobacco use for 24 years, but quit 30 years ago. 3. History of alcoholism, but quit 30 years ago. Plan . 1. We will do a 6-minute walk test, if he can ambulate for [address] angiogram neg for PE 3. Needs to loose wt 4. We will do PFTs as an outpatient. 5. CAN GO HOME STALIN JAY MD Dec 01, 2016 09:45
[2016-12-01] MEDS ORDERED: POTASSIUM CHLORIDE 20 MEQ TABLET.ER. PO ONE (10:15)
[2016-12-01] MEDS: FUROSEMIDE 20 MG/2 ML VIAL IVP SCH (10:23)
[2016-12-01 10:34] VITALS: BP 137/74
--- NOTE | 2016-12-01 11:52 | PDOC ---
IM PROGRESS NOTES- Subjective Subjective Has diarrhea since yesterday.Feels weak. Objective Vitals Vital Signs Date Time Temp Pulse Resp B/P Pulse Ox O2 Delivery O2 Flow Rate FiO2 12/01/16 10:34 97.4 99 18 137/74 96 Room Air 97.4 Input & Output Intake and Output 12/01/16 07:00 Intake Total 100 ml Output Total 1750 ml Balance -1650 ml Intake Oral 100 ml Output Urine Total 1750 ml Physical Exam Physical Exam General appearance - alert,well appearing, and in no distress and oriented to person, place, and time Mental Status - alert, oriented to person, place, and time, affect appropriate to mood Head - normal Chest - clear to auscultation, no wheezes, rales or rhonchi, symmetric air entry Heart - S1 and S2 normal Abdomen - soft, nontender, nondistended, no masses or organomegaly Neurological - alert and oriented Musculoskeletal - no muscular tenderness noted Extremities - no pedal edema Skin - warm and dry Labs Laboratory Tests Test 11/29/16 16:00 11/29/16 16:38 11/29/16 20:30 11/29/16 21:19 Sodium Level 143mmol/L (136-145) Potassium Level 4.1mmol/L (3.5-5.1) Chloride Level 104mmol/L (98-107) Carbon Dioxide Level 27mmol/L (21-32) Anion Gap 12 (6-14) Blood Urea Nitrogen 25mg/dL (8-26) Creatinine 1.0mg/dL (0.7-1.3) Estimated GFR (Cockcroft-Gault) 73.0 BUN/Creatinine Ratio 25 (6-20) Glucose Level 156mg/dL (70-99) Calcium Level 10.0mg/dL (8.5-10.1) Total Bilirubin 0.5mg/dL (0.2-1.0) Aspartate Amino Transf (AST/SGOT) 19U/L (15-37) Alanine Aminotransferase (ALT/SGPT) 35U/L (16-63) Alkaline Phosphatase 78U/L (46-116) Troponin I Quantitative < 0.017ng/mL (0.000-0.055) QY-Kvb-O-Type Natriuretic Peptide 27pg/mL (0-124) Total Protein 8.0g/dL (6.4-8.2) Albumin 4.2g/dL (3.4-5.0) Albumin/Globulin Ratio 1.1 (1.0-1.7) Glucose (Fingerstick) 150mg/dL (70-99) 187mg/dL (70-99) White Blood Count 10.6x10^3/uL (4.0-11.0) Red Blood Count 4.98x10^6/uL (4.30-5.70) Hemoglobin 15.4g/dL (13.0-17.5) Hematocrit 46.0% (39.0-53.0) Mean Corpuscular Volume 92fL (79-100) Mean Corpuscular Hemoglobin 31pg (25-35) Mean Corpuscular Hemoglobin Concent 33g/dL (31-37) Red Cell Distribution Width 14.0% (11.5-14.5) Platelet Count 324x10^3/uL (140-400) Neutrophils (%) (Auto) 79% (31-73) Lymphocytes (%) (Auto) 15% (24-48) Monocytes (%) (Auto) 6% (0-9) Eosinophils (%) (Auto) 0% (0-3) Basophils (%) (Auto) 1% (0-3) Neutrophils # (Auto) 8.4x10^3uL (1.8-7.7) Lymphocytes # (Auto) 1.6x10^3/uL (1.0-4.8) Monocytes # (Auto) 0.6x10^3/uL (0.0-1.1) Eosinophils # (Auto) 0.0x10^3/uL (0.0-0.7) Basophils # (Auto) 0.0x10^3/uL (0.0-0.2) D-Dimer (Rianna) < 0.27ug/mlFEU (0.00-0.50) Test 11/30/16 04:30 11/30/16 07:28 11/30/16 11:54 11/30/16 12:15 White Blood Count 11.0x10^3/uL (4.0-11.0) Red Blood Count 4.04x10^6/uL (4.30-5.70) Hemoglobin 12.1g/dL (13.0-17.5) 14.3g/dL (13.0-17.5) Hematocrit 36.0% (39.0-53.0) 43.5% (39.0-53.0) Mean Corpuscular Volume 89fL (79-100) Mean Corpuscular Hemoglobin 30pg (25-35) Mean Corpuscular Hemoglobin Concent 34g/dL (31-37) Red Cell Distribution Width 13.4% (11.5-14.5) Platelet Count 275x10^3/uL (140-400) Neutrophils (%) (Auto) 74% (31-73) Lymphocytes (%) (Auto) 17% (24-48) Monocytes (%) (Auto) 8% (0-9) Eosinophils (%) (Auto) 1% (0-3) Basophils (%) (Auto) 0% (0-3) Neutrophils # (Auto) 8.1x10^3uL (1.8-7.7) Lymphocytes # (Auto) 1.8x10^3/uL (1.0-4.8) Monocytes # (Auto) 0.9x10^3/uL (0.0-1.1) Eosinophils # (Auto) 0.1x10^3/uL (0.0-0.7) Basophils # (Auto) 0.0x10^3/uL (0.0-0.2) Sodium Level 142mmol/L (136-145) Potassium Level 4.4mmol/L (3.5-5.1) Chloride Level 101mmol/L (98-107) Carbon Dioxide Level 26mmol/L (21-32) Anion Gap 15 (6-14) Blood Urea Nitrogen 25mg/dL (8-26) Creatinine 0.9mg/dL (0.7-1.3) Estimated GFR (Cockcroft-Gault) 82.5 Glucose Level 152mg/dL (70-99) Calcium Level 10.3mg/dL (8.5-10.1) Glucose (Fingerstick) 117mg/dL (70-99) 179mg/dL (70-99) Test 11/30/16 16:40 11/30/16 20:55 12/01/16 05:45 12/01/16 07:54 Glucose (Fingerstick) 157mg/dL (70-99) 162mg/dL (70-99) 156mg/dL (70-99) White Blood Count 8.4x10^3/uL (4.0-11.0) Red Blood Count 4.77x10^6/uL (4.30-5.70) Hemoglobin 14.6g/dL (13.0-17.5) Hematocrit 44.2% (39.0-53.0) Mean Corpuscular Volume 93fL (79-100) Mean Corpuscular Hemoglobin 31pg (25-35) Mean Corpuscular Hemoglobin Concent 33g/dL (31-37) Red Cell Distribution Width 14.6% (11.5-14.5) Platelet Count 284x10^3/uL (140-400) Neutrophils (%) (Auto) 60% (31-73) Lymphocytes (%) (Auto) 30% (24-48) Monocytes (%) (Auto) 7% (0-9) Eosinophils (%) (Auto) 2% (0-3) Basophils (%) (Auto) 1% (0-3) Neutrophils # (Auto) 5.1x10^3uL (1.8-7.7) Lymphocytes # (Auto) 2.5x10^3/uL (1.0-4.8) Monocytes # (Auto) 0.6x10^3/uL (0.0-1.1) Eosinophils # (Auto) 0.1x10^3/uL (0.0-0.7) Basophils # (Auto) 0.0x10^3/uL (0.0-0.2) Sodium Level 141mmol/L (136-145) Potassium Level 3.2mmol/L (3.5-5.1) Chloride Level 104mmol/L (98-107) Carbon Dioxide Level 23mmol/L (21-32) Anion Gap 14 (6-14) Blood Urea Nitrogen 27mg/dL (8-26) Creatinine 0.7mg/dL (0.7-1.3) Estimated GFR (Cockcroft-Gault) 110.2 Glucose Level 141mg/dL (70-99) Calcium Level 9.7mg/dL (8.5-10.1) Magnesium Level 2.2mg/dL (1.8-2.4) Test 12/01/16 10:55 Glucose (Fingerstick) 188mg/dL (70-99) Laboratory Tests Test 11/30/16 11:54 11/30/16 12:15 11/30/16 16:40 11/30/16 20:55 Glucose (Fingerstick) 179mg/dL (70-99) 157mg/dL (70-99) 162mg/dL (70-99) Hemoglobin 14.3g/dL (13.0-17.5) Hematocrit 43.5% (39.0-53.0) Test 12/01/16 05:45 12/01/16 07:54 12/01/16 10:55 White Blood Count 8.4x10^3/uL (4.0-11.0) Red Blood Count 4.77x10^6/uL (4.30-5.70) Hemoglobin 14.6g/dL (13.0-17.5) Hematocrit 44.2% (39.0-53.0) Mean Corpuscular Volume 93fL (79-100) Mean Corpuscular Hemoglobin 31pg (25-35) Mean Corpuscular Hemoglobin Concent 33g/dL (31-37) Red Cell Distribution Width 14.6% (11.5-14.5) Platelet Count 284x10^3/uL (140-400) Neutrophils (%) (Auto) 60% (31-73) Lymphocytes (%) (Auto) 30% (24-48) Monocytes (%) (Auto) 7% (0-9) Eosinophils (%) (Auto) 2% (0-3) Basophils (%) (Auto) 1% (0-3) Neutrophils # (Auto) 5.1x10^3uL (1.8-7.7) Lymphocytes # (Auto) 2.5x10^3/uL (1.0-4.8) Monocytes # (Auto) 0.6x10^3/uL (0.0-1.1) Eosinophils # (Auto) 0.1x10^3/uL (0.0-0.7) Basophils # (Auto) 0.0x10^3/uL (0.0-0.2) Sodium Level 141mmol/L (136-145) Potassium Level 3.2mmol/L (3.5-5.1) Chloride Level 104mmol/L (98-107) Carbon Dioxide Level 23mmol/L (21-32) Anion Gap 14 (6-14) Blood Urea Nitrogen 27mg/dL (8-26) Creatinine 0.7mg/dL (0.7-1.3) Estimated GFR (Cockcroft-Gault) 110.2 Glucose Level 141mg/dL (70-99) Calcium Level 9.7mg/dL (8.5-10.1) Magnesium Level 2.2mg/dL (1.8-2.4) Glucose (Fingerstick) 156mg/dL (70-99) 188mg/dL (70-99) Meds Current Medications Acetaminophen (Tylenol) 650 mg PRN Q6HRS PRN PO MILD PAIN / TEMP Last administered on 11/30/16 19:13; Start 11/30/16 at 18:45 Info (Do NOT chart on this entry -- for MONITORING) 1 each PRN DAILY PRN MC SEE COMMENTS; Start 11/30/16 at 12:00; Stop 12/02/16 at 11:59 Iohexol (Omnipaque 300 Mg/ml) 75 ml 1X ONCE IV ; Start 11/30/16 at 13:00; Stop 11/30/16 at 13:01; Status DC Loperamide HCl (Imodium) 4 mg 1X ONCE PO ; Start 12/01/16 at 12:00; Stop at 12:01 Potassium Chloride (Klor-Con) 40 meq 1X ONCE PO Last administered on 10:23; Start 12/01/16 at 10:15; Stop 12/01/16 at 10:16; Status DC Assessment Assessment 1. ST with progressive dyspnea on exertion 2. Chronic diastolic CHF normal EF not acute 3. Edema lower extremities 4. 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 hyperlipidemia 7. late effects poliomyelitis 8. h/o sleep apnea 9. GERD 10, OA PLAN: ST BS tele SR 80s diastolic CHF not acute BNP 27 Current Lasix 40mg po and HCTZ 12.5mg (diovan/HCTZ combo) Admit wt 204.6# Edema LE resolved this AM abnormal CXR progressive dyspnea with exertion consult pulmonary DM II FSBS/SSI BS 150-187 DVT/GI prophylaxis lovenox pepcid Diarrhea- ? viral gastroenteritis.Imodium 2 tablets x1. Hypokalemia- order extra KCL 40 Meq. D/c Lasix due to diarrhea. D/w physical deconditioning.ok to discharge.CT chest negative for PE.echo ok. pt does not want to go to [place].He has home PT. He is still using bedside commode,weak. Agreeable to go home this evening if he feels better. Discharge Management - 35 minutes. Plan Plan 1. ST with progressive dyspnea on exertion 2. Chronic diastolic CHF normal EF not acute 3. Edema lower extremities 4. 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 hyperlipidemia 7. late effects poliomyelitis 8. h/o sleep apnea 9. GERD 10, OA PLAN: ST BS tele SR 80s diastolic CHF not acute BNP 27 Current Lasix 40mg po and HCTZ 12.5mg (diovan/HCTZ combo) Admit wt 204.6# Edema LE resolved this AM abnormal CXR progressive dyspnea with exertion consult pulmonary DM II FSBS/SSI BS 150-187 DVT/GI prophylaxis lovenox pepcid For more details regarding further plans, please refer to the orders. DOROTEO BRITTON MD Dec 01, 2016 11:51
[2016-12-01] MEDS ORDERED: LOPERAMIDE 2 MG CAPSULE PO ONE ×2 (12:00→19:15)
[2016-12-01 14:38] VITALS: BP 128/60
[2016-12-01] MEDS: ACETAMINOPHEN 325 MG TABLET. PO PRN (15:37)
[2016-12-01 19:01] VITALS: BP 142/68
[2016-12-01] MEDS: ATORVASTATIN CALCIUM 10 MG TABLET. PO SCH (20:59)
[2016-12-01] MEDS: AMITRIPTYLINE HCL 10 MG TABLET PO SCH (21:00)
[2016-12-01 22:58] VITALS: BP 108/58
[2016-12-02 03:22] VITALS: BP 112/66
[2016-12-02 06:41] VITALS: BP 159/71
[2016-12-02] MEDS: INSULIN ASPART 300 UNITS/3 ML INSULN.PEN SQ SCH ×3 (08:00→13:05)
[2016-12-02 09:25] LABS: CREATININE 0.8 mg/dL (0.7-1.3); GFR 94.5
--- NOTE | 2016-12-02 09:34 | RAD ---
APPROVED REPORT Bilateral Lower Extremity Venous Study for DVT Patient Location: IN-PATIENT Indications Lower Extremity Edema: Shortness of breath Risk Factors Obesity Vein Imaging (Right) CFV (R): Compressible, Augmentation SFJ (R): Compressible, Augmentation FEM (R): Compressible, Augmentation POP (R): Compressible, Augmentation DFV (R): Compressible, Augmentation PTV (R): Augmentation GSV (R): Compressible, Augmentation Peroneals (R): Augmentation Vein Imaging (Left) CFV (L): Compressible, Augmentation SFJ (L): Compressible, Augmentation FEM (L): Compressible, Augmentation POP (L): Compressible, Augmentation DFV (L): Compressible, Augmentation PTV (L): Augmentation GSV (L): Compressible, Augmentation Peroneals (L): Augmentation Doppler Evaluation (Right) CFV (R): Spontaneous POP (R):Spontaneous Doppler Evaluation (Left) CFV (L):Spontaneous POP (L):Spontaneous Findings Bilateral lower extremity deep venous evaluation revealed normal flow patterns in the common femoral, superficial femoral and popliteal vessels. SFJ is clear of any thrombus. On the right, there is spon taneous flow noted in the below knee veins with adequate visualization and spectral waveforms. The be low knee veins are not well visualized on the left but appear to be gross patent with spontaneous tiffanie w. Critical Notification Critical Value: No <Conclusion> No evidence of DVT
[2016-12-02] MEDS: FAMOTIDINE 20 MG TABLET. PO SCH (09:42)
[2016-12-02] MEDS: HYDROCHLOROTHIAZIDE 12.5 MG CAPSULE. PO SCH (09:42)
[2016-12-02] MEDS: POTASSIUM CHLORIDE 20 MEQ TABLET.ER. PO SCH (09:43)
[2016-12-02] MEDS: LOSARTAN POTASSIUM 50 MG TABLET. PO SCH (09:43)
[2016-12-02] MEDS: LINAGLIPTIN 5 MG TABLET PO SCH (09:44)
[2016-12-02] MEDS: ASPIRIN ENTERIC COATED 325 MG TABLET.DR. PO SCH (09:44)
[2016-12-02] MEDS: ENOXAPARIN 40 MG/0.4 ML DISP.SYRIN. SQ SCH (09:44)
--- NOTE | 2016-12-02 10:01 | PDOC ---
PROGRESS NOTES Subjective Subjective feels better,anxious to go home Objective Objective Vital Signs Date Time Temp Pulse Resp B/P Pulse Ox O2 Delivery O2 Flow Rate FiO2 12/02/16 09:43 91 159/71 12/02/16 06:41 97.4 18 95 Room Air 97.4 Intake and Output 12/02/16 07:00 Intake Total 1850 ml Output Total 950 ml Balance 900 ml Intake Oral 1850 ml Output Urine Total 950 ml # Bowel Movements 4 Physical Exam Abdomen: Soft, No tenderness, Other (truncal obesity) Heart: Regular rate (sinus tach), Normal S1, Normal S2, Other (2/6 systolic murmur to LLS border) Extremities: No cyanosis, Other (3+ bilateral LE pitting edema) General: Alert, Oriented X3, Cooperative, No acute distress HEENT: Atraumatic, Mucous membr. moist/pink Lungs: Clear to auscultation, Normal air movement MUSCULOSKELETAL: Osteoarthritic changes both hands Neuro: Normal speech, Sensation intact Psych/Mental Status: Mental status NL, Mood NL Skin: No breakdown, No significant lesion Diagnosis Problem List Problems Medical Problems: (1) CHF (congestive heart failure) Status: Acute (2) Weakness Status: Acute Assessment Assessment 1. ST with progressive dyspnea on exertion 2. Chronic diastolic CHF normal EF not acute 3. Edema lower extremities 4. 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 hyperlipidemia 7. late effects poliomyelitis 8. h/o sleep apnea 9. GERD 10, OA PLAN: d/c home today . ct a no PE, dioppler leg -ve echo good lvf pot replaced yesterday Problems: Plan Plan of Care Problems Medical Problems: (1) CHF (congestive heart failure) Status: Acute (2) Weakness Status: Acute Comment Review of Relevant I have reviewed the following items purnima (where applicable) has been applied. Labs Laboratory Tests Test 12/01/16 10:55 12/01/16 16:50 12/01/16 20:48 12/02/16 09:05 Glucose (Fingerstick) 188mg/dL (70-99) 130mg/dL (70-99) 190mg/dL (70-99) Creatinine 0.8mg/dL (0.7-1.3) Estimated GFR (Cockcroft-Gault) 94.5 Medications Current Medications Loperamide HCl (Imodium) 2 mg 1X ONCE PO Last administered on 12/01/16 21:00 ; Start 12/01/16 at 19:15; Stop 12/01/16 at 19:17; Status DC Loperamide HCl (Imodium) 4 mg 1X ONCE PO Last administered on 12/01/16 12:23 ; Start 12/01/16 at 12:00; Stop 12/01/16 at 12:01; Status DC Potassium Chloride (Klor-Con) 40 meq 1X ONCE PO Last administered on 10:23; Start 12/01/16 at 10:15; Stop 12/01/16 at 10:16; Status DC Vitals/I & O Vital Sign - Last 24 Hours 12/01/16 12/01/16 12/01/16 12/01/16 10:34 14:38 19:01 20:00 Temp 97.4 97.8 98.1 97.4 97.8 98.1 Pulse 99 102 102 Resp B/P 137/74 128/60 142/68 Pulse Ox 96 95 92 O2 Delivery Room Air Room Air Room Air Room Air 12/01/16 12/02/16 12/02/16 12/02/16 22:58 03:22 06:41 09:43 Temp 97.3 97.3 97.4 97.3 97.3 97.4 Pulse 89 84 91 91 Resp B/P 108/58 112/66 159/71 159/71 Pulse Ox 92 92 95 O2 Delivery Room Air Room Air Room Air Intake and Output 12/01/16 12/01/16 12/02/16 15:00 23:00 07:00 Intake Total 1450 ml 400 ml Output Total 850 ml 100 ml Balance 600 ml 300 ml DEBRA ARNOLD MD Dec 02, 2016 10:01
[2016-12-02 11:30] VITALS: BP 149/62
--- NOTE | 2016-12-02 12:36 | PDOC ---
CARDIO Progress Notes Date and Time Date of Service 12/02/16 Time of Evaluation 1245 Subjective Subjective: No Chest Pain, No shortness of breath, Other (having diarrhea, c/o rt leg pain) Vitals Vitals Vital Signs Date Time Temp Pulse Resp B/P Pulse Ox O2 Delivery O2 Flow Rate FiO2 12/02/16 09:43 91 159/71 12/02/16 08:00 Room Air 12/02/16 06:41 97.4 18 95 97.4 Weight Weight [ ] Input and Output Intake and Output Intake and Output 12/02/16 07:00 Intake Total 1850 ml Output Total 950 ml Balance 900 ml Intake Oral 1850 ml Output Urine Total 950 ml # Bowel Movements 4 Laboratory Labs Laboratory Tests Test 12/01/16 16:50 12/01/16 20:48 12/02/16 08:22 12/02/16 09:05 Glucose (Fingerstick) 130mg/dL (70-99) 190mg/dL (70-99) 153mg/dL (70-99) Creatinine 0.8mg/dL (0.7-1.3) Estimated GFR (Cockcroft-Gault) 94.5 Physical Exam HEENT: Neck Supple W Full Motion Chest: Symmetric LUNGS: Clear to Auscultation, Other (diminished bases ) Heart: S1S2, RRR, other (2/6 systolic murmur) Abdomen: Soft N/T, Other (truncal obesity) Extremities: Other (2+ bilateral LE edema) Neurology: alert, oriented, follow commands Assessment Assessment 1. Sinus Tachycardia, reactive/extracardiac. 2. Dyspnea on exertion with leg edema: deconditioning? venous insufficiency? no evidence of CHF. 2. HTN: controlled 3. HLP/DM2 4. Hx of syncope: 08/2016 no further episode 5. Hx of cirrhosis: remote ETOH 6. Hypokalemia Recommendations No acute events overnight. Replace K. Monitor lytes Patient would like to defer MPI with diarrhea. Will set up on an outpatient basis. Continue supportive care. May d/c from CV perspective FANG CURRIE APRN Dec 02, 2016 12:35
[2016-12-02] MEDS ORDERED: POTASSIUM CHLORIDE 20 MEQ TABLET.ER. PO ONE (12:45)
--- NOTE | 2016-12-02 13:35 | PDOC ---
PULMONARY PROGRESS NOTES Subjective no soa at rest Vitals Vital Signs Date Time Temp Pulse Resp B/P Pulse Ox O2 Delivery O2 Flow Rate FiO2 12/02/16 09:43 91 159/71 12/02/16 08:00 Room Air 12/02/16 06:41 97.4 18 95 97.4 General: Alert, No acute distress Lungs: Clear Cardiovascular: S1 Abdomen: Soft, Other (obese) Neuro Exam: Alert Extremities: No Edema Skin: Warm Labs Laboratory Tests Test 11/30/16 16:40 11/30/16 20:55 12/01/16 05:45 12/01/16 07:54 Glucose (Fingerstick) 157mg/dL (70-99) 162mg/dL (70-99) 156mg/dL (70-99) White Blood Count 8.4x10^3/uL (4.0-11.0) Red Blood Count 4.77x10^6/uL (4.30-5.70) Hemoglobin 14.6g/dL (13.0-17.5) Hematocrit 44.2% (39.0-53.0) Mean Corpuscular Volume 93fL (79-100) Mean Corpuscular Hemoglobin 31pg (25-35) Mean Corpuscular Hemoglobin Concent 33g/dL (31-37) Red Cell Distribution Width 14.6% (11.5-14.5) Platelet Count 284x10^3/uL (140-400) Neutrophils (%) (Auto) 60% (31-73) Lymphocytes (%) (Auto) 30% (24-48) Monocytes (%) (Auto) 7% (0-9) Eosinophils (%) (Auto) 2% (0-3) Basophils (%) (Auto) 1% (0-3) Neutrophils # (Auto) 5.1x10^3uL (1.8-7.7) Lymphocytes # (Auto) 2.5x10^3/uL (1.0-4.8) Monocytes # (Auto) 0.6x10^3/uL (0.0-1.1) Eosinophils # (Auto) 0.1x10^3/uL (0.0-0.7) Basophils # (Auto) 0.0x10^3/uL (0.0-0.2) Sodium Level 141mmol/L (136-145) Potassium Level 3.2mmol/L (3.5-5.1) Chloride Level 104mmol/L (98-107) Carbon Dioxide Level 23mmol/L (21-32) Anion Gap 14 (6-14) Blood Urea Nitrogen 27mg/dL (8-26) Creatinine 0.7mg/dL (0.7-1.3) Estimated GFR (Cockcroft-Gault) 110.2 Glucose Level 141mg/dL (70-99) Calcium Level 9.7mg/dL (8.5-10.1) Magnesium Level 2.2mg/dL (1.8-2.4) Test 12/01/16 10:55 12/01/16 16:50 12/01/16 20:48 12/02/16 08:22 Glucose (Fingerstick) 188mg/dL (70-99) 130mg/dL (70-99) 190mg/dL (70-99) 153mg/dL (70-99) Test 12/02/16 09:05 12/02/16 12:11 Creatinine 0.8mg/dL (0.7-1.3) Estimated GFR (Cockcroft-Gault) 94.5 Thyroid Stimulating Hormone (TSH) 2.004uIU/mL (0.358-3.74) Glucose (Fingerstick) 161mg/dL (70-99) Laboratory Tests Test 12/01/16 16:50 12/01/16 20:48 12/02/16 08:22 12/02/16 09:05 Glucose (Fingerstick) 130mg/dL (70-99) 190mg/dL (70-99) 153mg/dL (70-99) Creatinine 0.8mg/dL (0.7-1.3) Estimated GFR (Cockcroft-Gault) 94.5 Thyroid Stimulating Hormone (TSH) 2.004uIU/mL (0.358-3.74) Test 12/02/16 12:11 Glucose (Fingerstick) 161mg/dL (70-99) Medications Active Scripts Medications Dose Route/Sig Days Date Category Klor-Con M20 (Potassium Chloride) 20 Meq Tab.er.prt 20 Meq PO [id number] 11/30/16 Rx Diovan Hct 160-12.5 Mg Tab (Valsartan/Hydrochlorothiazide) 1 Each Tablet 1 Tab PO DAILY 11/30/16 Rx Lasix (Furosemide) 20 Mg Tablet 1 Tab PO BID 11/30/16 Rx Aspirin Ec (Aspirin) 325 Mg Tablet. 325 Mg PO DAILY 30 08/22/16 Rx Janumet 50-500 Mg Tablet (Sitagliptin Phos/Metformin Hcl) 1 Each Tablet 1 Tab PO BID 08/21/16 Reported Atorvastatin Calcium 10 Mg Tablet 10 Mg PO HS 08/21/16 Reported Amitriptyline Hcl 10 Mg Tablet 10 Mg PO DAILY 12/09/13 Reported Ranitidine Hcl 150 Mg Capsule 150 Mg PO BID 12/09/13 Reported Impression . 1. dyspnea for the past 2 months. Chest x-ray without any congestive heart failure. Echo is normal. etiology is most likely due to physical deconditioning related to sedentary lifestyle and weight gain of 9 pounds in last 2 months. No evidence of thromboembolic disease He has history of cirrhosis, but his LFTs and coags are normal. The possibility of hepatopulmonary syndrome is less likely. No sig. pulmonary HTN 2. History of tobacco use for 24 years, but quit 30 years ago. 3. History of alcoholism, but quit 30 years ago. Plan . 1. Pt cannot do a 6-minute walk test 2. CT angiogram neg for PE 3. Needs to loose wt 4. We will do PFTs as an outpatient. 5. CAN GO HOME STALIN JAY MD Dec 02, 2016 13:34
[2016-12-02] MEDS ORDERED: METFORMIN 500 MG TABLET. PO SCH (17:00)
--- NOTE | 2016-12-03 10:04 | PDOC ---
Provider Note Provider Note Discharge summary dictated. #[id number] DEBRA ARNOLD MD Dec 03, 2016 10:03
--- NOTE | 2016-12-03 17:27 | DS ---
DATE OF DISCHARGE: 12/02/2016 REASON FOR ADMISSION TO THE HOSPITAL: Edema, shortness of breath, possible heart failure. CONSULTATIONS: Dr. Arnold, Dr. Lemus. PROCEDURES DONE: 1. Doppler of lower extremities. 2. CT chest. 3. Echocardiogram. HOSPITAL COURSE: The patient is a 76-year-old male with history of diabetes, hypertension and late effects of polio who noticed swelling in lower extremities, tachycardic at the office 120, was admitted to the hospital, had a Doppler that was negative for DVT. CT chest negative for PE. Echo shows a good left ventricular function and the patient was given Lasix and condition improved and the swelling went down, was feeling better and the heart rate was controlled and the patient was seen by Pulmonology and Cardiology. It was thought the patient has tachycardia secondary to deconditioning and recommended to continue his medications. FINAL DIAGNOSES: 1. Swelling in lower extremities and acute tachycardia, probably secondary to diastolic heart failure. 2. 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 3. Late effects of polio. 4. Diabetes. 5. Hypertension. DISPOSITION: Home. DISCHARGE MEDICATIONS: See MRAD for discharge medications. DEBRA ARNOLD MD DR: RIZWANA/ki JOB#: [id number] / [id number]
== END 2016-12-02 14:50 | disposition home or self-care (01) | DRG 309 ==
LOC: 2 SOUTH 13:57
PROVIDERS: ADMIT Internal Medicine; ATTEND Internal Medicine
DX: R00.0 Tachycardia, unspecified (principal); I50.32 Chronic diastolic (congestive) heart failure; E87.6 Hypokalemia; I11.0 Hypertensive heart disease with heart failure; E11.40 Type 2 diabetes mellitus with diabetic neuropathy, unspecified; E78.5 Hyperlipidemia, unspecified; F10.21 Alcohol dependence, in remission; G47.30 Sleep apnea, unspecified; M19.90 Unspecified osteoarthritis, unspecified site; K57.90 Diverticulosis of intestine, part unspecified, without perforation or abscess without bleeding; K21.9 Gastro-esophageal reflux disease without esophagitis; K74.60 Unspecified cirrhosis of liver; Z82.49 Family history of ischemic heart disease and other diseases of the circulatory system; B91 Sequelae of poliomyelitis; Z83.3 Family history of diabetes mellitus; Z87.891 Personal history of nicotine dependence; Z79.899 Other long term (current) drug therapy; Z79.82 Long term (current) use of aspirin; G89.29 Other chronic pain; M54.5 Low back pain; A80.9 Acute poliomyelitis, unspecified
CPT/HCPCS: 36415; 71010; 71275; 80048; 80053; 82565; 82947; 83735; 83880; 84443; 84484; 85014; 85018; 85027; 85379; 93005; 93306; 93970; 94760; J1650; J1815; J1940

== ENCOUNTER 2018-10-16 16:55 | Inpatient (IN) | payer MEDICARE ==
[~2018-10-16] VITALS: Ht 167.6 cm; Wt 90.7 kg
[~2018-10-16 16:55] MED LIST changes: +CLON0.1T PO; +FURO-69 PO; +METF500T16 PO; -METF500T4 PO; +POTA20TA4 PO; +VALS1TAB8 PO
[2018-10-16] MEDS ORDERED: KETOROLAC 15 MG/ML VIAL. IV ONE (17:15)
[2018-10-16] MEDS ORDERED: ONDANSETRON PF 4 MG/2 ML VIAL. IV ONE (17:15)
[2018-10-16] MEDS ORDERED: IV NORMAL SALINE 1000ML BAG 1,000 ML IV ONE ×2 (17:15→19:45)
[2018-10-16 18:06] LABS: BASO # 0.2 x10^3/uL (0.0-0.2); BASO % 2 % (0-3); EOS # 0.1 x10^3/uL (0.0-0.7); EOS % 1 % (0-3); HEMATOCRIT 37.2 % (39.0-53.0); HEMOGLOBIN 12.8 g/dL (13.0-17.5); LYMPH # 2.1 x10^3/uL (1.0-4.8); LYMPH % 23 % (24-48); MEAN CORPUSCULAR HEMOGLOBIN 32 pg (25-35); MEAN CORPUSCULAR HGB CONC 35 g/dL (31-37); MEAN CORPUSCULAR VOLUME 93 fL (79-100); MONO # 0.7 x10^3/uL (0.0-1.1); MONO % 7 % (0-9); NEUT # 6.1 x10^3uL (1.8-7.7); NEUT % 67 % (31-73); PLATELET COUNT 359 x10^3/uL (140-400); RED BLOOD COUNT 4.01 x10^6/uL (4.30-5.70); RED CELL DISTRIBUTION WIDTH 14.1 % (11.5-14.5); WHITE BLOOD COUNT 9.1 x10^3/uL (4.0-11.0)
[2018-10-16 18:15] LABS: CALCIUM 9.6 mg/dL (8.5-10.1); GFR 72.6; POTASSIUM 3.2 mmol/L (3.5-5.1)
[2018-10-16 18:20] LABS: ALBUMIN 3.9 g/dL (3.4-5.0); TOTAL BILIRUBIN 0.5 mg/dL (0.2-1.0)
[2018-10-16] MEDS ORDERED: ONDANSETRON PF 4 MG/2 ML VIAL. IV PRN (20:30)
[2018-10-16] MEDS ORDERED: ACETAMINOPHEN 325 MG TABLET. PO PRN (20:30)
[2018-10-16] MEDS ORDERED: POTASSIUM CHLORIDE 20 MEQ TABLET.ER. PO ONE (20:45)
[2018-10-16] MEDS: IV NORMAL SALINE 1000ML BAG 1,000 ML IV SCH (20:46)
--- NOTE | 2018-10-16 21:45 | NUR ---
ADMIT Pt arrived via gurney from ED. A/Ox4, room air, VSS. IVF currently infusing. Full admission assessment completed at this time. No c/o pain at this time and pt denied N/V/D at this current time. Pt's brief changed at this time. Bed alarm activated. Fall contract signed. Arm Band applied. Offered sandwich tray, H2O given. Call light w/in reach. Will continue to monitor closely.
[2018-10-16 23:00] VITALS: BP 159/79
--- NOTE | 2018-10-17 00:43 | PHYS DOC ---
Past Medical History Past Medical History: Diabetes-Type II, GERD, High Cholesterol, Hypertension Additional Past Medical Histor: Polio Past Surgical History: Other Additional Past Surgical Histo: L ankle Alcohol Use: Sober Drug Use: None Adult General Chief Complaint Chief Complaint: NAUSEA/VOMITING/DIARRHA HPI HPI Patient is a 78 year old very pleasant male who presents with dehydration following vomiting and diarrhea. The patient states that he had multiple episodes of vomiting overnight. He states that he probably vomited at least 10 times. He has since then been having extremely watery diarrhea. He states that he is extremely thirsty. He has not been able to hydrate himself at home. His spoke to his family physician who suggested he come to the emergency department to be evaluated. Review of Systems Review of Systems Constitutional: Denies fever or chills [] Respiratory: Denies cough or shortness of breath [] Cardiovascular: No additional information not addressed in HPI [] GI: See history of present illness : Denies dysuria or hematuria [] Musculoskeletal: Denies back pain or joint pain [] Integument: Denies rash or skin lesions [] Neurologic: Denies headache, focal weakness or sensory changes [] Endocrine: Denies polyuria or polydipsia [] All other systems were reviewed and found to be within normal limits, except as documented in this note. Current Medications Current Medications Current Medications Medications (Trade) Dose Ordered Sig/Orin Start Time Stop Time Status Last Admin Dose Admin Ketorolac Tromethamine (Toradol 15mg Vial) 15 mg 1X ONCE 10/16/18 17:15 10/16/18 17:17 DC 10/16/18 18:18 15 MG Ondansetron HCl (Zofran) 4 mg 1X ONCE 10/16/18 17:15 10/16/18 17:17 DC 10/16/18 17:15 4 MG Sodium Chloride 1,000 ml @ 1,000 mls/hr 1X ONCE 10/16/18 19:45 10/16/18 20:44 DC 10/16/18 19:44 1,000 MLS/HR Allergies Allergies Allergies Coded Allergies Type Severity Reaction Last Updated Verified No Known Drug Allergies 03/22/15 No Physical Exam Physical Exam Constitutional: Well developed, well nourished, no acute distress, non-toxic appearance. [] Cardiovascular:Heart rate regular rhythm, no murmur [] Lungs & Thorax: Bilateral breath sounds clear to auscultation [] Abdomen: Bowel sounds are active, soft, no tenderness, no masses, no pulsatile masses. [] Skin: Warm, dry, no erythema, no rash. [] Back: No tenderness, no CVA tenderness. [] Extremities: No tenderness, no cyanosis, no clubbing, ROM intact, no edema. [] Neurologic: Alert and oriented X 3, normal motor function, normal sensory function, no focal deficits noted. [] Psychologic: Affect normal, judgement normal, mood normal. [] Current Patient Data Vital Signs Vital Signs Date Time Temp Pulse Resp B/P (MAP) Pulse Ox O2 Delivery O2 Flow Rate FiO2 10/16/18 19:30 88 16 172/69 (103) 97 Room Air 10/16/18 16:57 98.0 98.0 Lab Values Laboratory Tests Test 10/16/18 17:55 White Blood Count 9.1 x10^3/uL (4.0-11.0) Red Blood Count 4.01 x10^6/uL (4.30-5.70) L Hemoglobin 12.8 g/dL (13.0-17.5) L Hematocrit 37.2 % (39.0-53.0) L Mean Corpuscular Volume 93 fL (79-100) Mean Corpuscular Hemoglobin 32 pg (25-35) Mean Corpuscular Hemoglobin Concent 35 g/dL (31-37) Red Cell Distribution Width 14.1 % (11.5-14.5) Platelet Count 359 x10^3/uL (140-400) Neutrophils (%) (Auto) 67 % (31-73) Lymphocytes (%) (Auto) 23 % (24-48) L Monocytes (%) (Auto) 7 % (0-9) Eosinophils (%) (Auto) 1 % (0-3) Basophils (%) (Auto) 2 % (0-3) Neutrophils # (Auto) 6.1 x10^3uL (1.8-7.7) Lymphocytes # (Auto) 2.1 x10^3/uL (1.0-4.8) Monocytes # (Auto) 0.7 x10^3/uL (0.0-1.1) Eosinophils # (Auto) 0.1 x10^3/uL (0.0-0.7) Basophils # (Auto) 0.2 x10^3/uL (0.0-0.2) Sodium Level 137 mmol/L (136-145) Potassium Level 3.2 mmol/L (3.5-5.1) L Chloride Level 99 mmol/L (98-107) Carbon Dioxide Level 22 mmol/L (21-32) Anion Gap 16 (6-14) H Blood Urea Nitrogen 28 mg/dL (8-26) H Creatinine 1.0 mg/dL (0.7-1.3) Estimated GFR (Cockcroft-Gault) 72.6 BUN/Creatinine Ratio 28 (6-20) H Glucose Level 220 mg/dL (70-99) H Calcium Level 9.6 mg/dL (8.5-10.1) Total Bilirubin 0.5 mg/dL (0.2-1.0) Aspartate Amino Transferase (AST) 16 U/L (15-37) Alanine Aminotransferase (ALT) 31 U/L (16-63) Alkaline Phosphatase 74 U/L (46-116) Total Protein 8.0 g/dL (6.4-8.2) Albumin 3.9 g/dL (3.4-5.0) Albumin/Globulin Ratio 1.0 (1.0-1.7) Laboratory Tests 10/16/18 17:55 Laboratory Tests 10/16/18 17:55 EKG EKG [] Radiology/Procedures Radiology/Procedures [] Course & Med Decision Making Course & Med Decision Making Pertinent Labs and Imaging studies reviewed. (See chart for details) []The patient received 2 L of fluid before he was able to give a urine sample. His potassium was replaced in the emergency department. He states that he does feel weak and would prefer to be admitted overnight. Dr. Yoo has accepted him to his service. The patient and his are in agreement with this plan. Dragon Disclaimer Dragon Disclaimer This electronic medical record was generated, in whole or in part, using a voice recognition dictation system. Departure Departure Impression: Primary Impression: Gastroenteritis Additional Impression: Dehydration Disposition: ADMITTED INPATIENT Admitting Physician: Sahil Yoo Condition: GOOD Problem Qualifiers NAT URIBE APRN Oct 17, 2018 00:43
[2018-10-17 03:00] VITALS: BP 141/81
[2018-10-17 04:20] LABS: BILIRUBIN,URINE SMALL (NEG); CLARITY,URINE CLEAR; COLOR,URINE YELLOW; NITRITE,URINE NEGATIVE (NEG); PH,URINE 5.5; PROTEIN,URINE NEGATIVE (NEG-TRACE); UROBILINOGEN,URINE 0.2 mg/dL (0.2 mg/dL)
[2018-10-17 04:35] LABS: AMORPHOUS SEDIMENT,UR PRESENT /HPF; BACTERIA,URINE FEW /HPF (0-FEW); HYALINE CASTS, URINE FEW /HPF; RBC,URINE 0 /HPF (0-2); SQUAMOUS EPITHELIAL CELL,UR FEW /LPF
[2018-10-17 05:36] LABS: BASO % 1 % (0-3); EOS # 0.1 x10^3/uL (0.0-0.7); EOS % 2 % (0-3); HEMATOCRIT 35.2 % (39.0-53.0); HEMOGLOBIN 11.9 g/dL (13.0-17.5); LYMPH # 1.8 x10^3/uL (1.0-4.8); LYMPH % 29 % (24-48); MEAN CORPUSCULAR HEMOGLOBIN 32 pg (25-35); MEAN CORPUSCULAR HGB CONC 34 g/dL (31-37); MEAN CORPUSCULAR VOLUME 94 fL (79-100); MONO # 0.5 x10^3/uL (0.0-1.1); MONO % 8 % (0-9); NEUT # 3.5 x10^3uL (1.8-7.7); NEUT % 59 % (31-73); PLATELET COUNT 287 x10^3/uL (140-400); RED BLOOD COUNT 3.75 x10^6/uL (4.30-5.70)
[2018-10-17 05:48] LABS: CALCIUM 8.1 mg/dL (8.5-10.1); CREATININE 0.8 mg/dL (0.7-1.3); POTASSIUM 3.2 mmol/L (3.5-5.1)
[2018-10-17] MEDS: IV NORMAL SALINE 1000ML BAG 1,000 ML IV SCH ×2 (06:41→09:00)
[2018-10-17 07:00] VITALS: BP 112/58
[2018-10-17 11:00] VITALS: BP 147/87
[2018-10-17] MEDS ORDERED: POTASSIUM CHLORIDE 20 MEQ TABLET.ER. PO ONE ×2 (12:00→14:00)
[2018-10-17] MEDS ORDERED: DEXTROSE 50% 25 GM / 50ML DISP.SYRIN. IV PRN (12:00)
--- NOTE | 2018-10-17 12:06 | PDOC ---
Provider Note Provider Note Pt seen.H&P dictated. #[id number] DEBRA ARNOLD MD Oct 17, 2018 12:06
[2018-10-17] MEDS ORDERED: IV NORMAL SALINE 1000ML BAG 1,000 ML IV SCH (12:15)
--- NOTE | 2018-10-17 13:33 | RAD ---
PORTABLE CHEST 1V Clinical Indication: nausea and vomiting/ evaluate for pneumonia/flu symptoms Comparison: AP chest January 02, 2017. Findings: Apical lordotic positioning. The cardiomediastinal silhouette is normal. Lungs are clear. There is no pneumothorax. No pleural effusion is appreciated. No acute bone abnormality. IMPRESSION: No acute cardiopulmonary process. Electronically signed by: Mariano Melendez MD (10/17/2018 1:29 PM) [facility]
--- NOTE | 2018-10-17 13:36 | HP ---
ADMIT DATE: LOCATION: . REASON FOR ADMISSION: Weakness, nausea, vomiting, diarrhea for the last 2-3 days. HISTORY OF PRESENT ILLNESS: The patient is a 78-year-old male, the patient known to me, has a history of late effects of polio. He is wheelchair level and he also has diabetes, hypertension and was not feeling well, had a viral infection for the last 3-4 days and started having nausea, vomiting yesterday, vomited three times, diarrhea 3 times, was weak and not able to get out of the bed, was brought to the hospital by ambulance. His white count was normal, potassium was low at 3.2, was given IV fluids. PAST MEDICAL HISTORY: History of diabetes, reflux, hypertension, hyperlipidemia, late effects of polio. PAST SURGICAL HISTORY: Left ankle surgery. ALLERGIES: No known drug allergies. PERSONAL HISTORY: No history of smoking. Ex-alcoholic in the past, but has been clean for 20 years. SOCIAL HISTORY: Lives with his , in a wheelchair level. REVIEW OF SYSTEMS: Sick for the last 2-3 days, getting progressively weaker, nausea, vomiting for 24 hours, no fever. Rest of the 14-system was reviewed. ALLERGIES: No known allergies. MEDICATIONS: He is on Lasix 20 mg twice a day, potassium 20 mEq daily, Janumet 1 twice a day, valsartan with hydrochlorothiazide 160/12.5 daily, amitriptyline 10 mg daily, aspirin 325 daily, atorvastatin 10 mg daily, Zantac 150 mg twice a day. PHYSICAL EXAMINATION: GENERAL: The patient is feeling better now, was weak. VITAL SIGNS: Temperature 98, pulse 100, respirations 16, blood pressure 142/71, and 98% on room air. HEENT: Head is atraumatic. Pupils equal. Oral cavity: No congestion. NECK: Supple. Thyroid not enlarged. JVD not elevated. CHEST: Symmetrical. CARDIOVASCULAR: S1, S2. LUNGS: Clear. ABDOMEN: Distended, but soft. He says he has a big belly all the time. EXTERNAL GENITALIA: No Booth. RECTAL: Deferred. EXTREMITIES: Has some 1+ swelling of lower extremities, wasting of the muscles from the late effects of polio. No tenderness. LABORATORY DATA: Shows a white count of 9, hemoglobin 13, platelets 359. Urine, 1-4 wbc's, negative for esterase. Electrolytes show sodium 137, potassium 3.2, chloride 99, bicarbonate 22, BUN 28, creatinine 1.0, glucose 220. LFTs were normal. FINAL IMPRESSION: 1. Viral gastroenteritis. 2. Upper respiratory infection, recent. 3. Hypokalemia. 4. Dehydration. 5. Diabetes. 6. Late effects of polio. 7. Hypertension. 8. Hyperlipidemia. PLAN: At this time, admit to hospital, hydrate with IV fluids, replace potassium, check for flu and start on clear liquid diet, advance as tolerated, see if the patient improves in the next 24-48 hours. DEBRA ARNOLD MD DR: RIZWANA/ki JOB#: [id number] / [id number]
[2018-10-17] MEDS: ASPIRIN ENTERIC COATED 325 MG TABLET.DR. PO SCH (13:53)
[2018-10-17] MEDS: ENOXAPARIN 40 MG/0.4 ML SYRINGE. SQ SCH (13:54)
[2018-10-17] MEDS: INSULIN LISPRO 300 UNITS/3 ML INSULN.PEN. SQ SCH ×2 (13:58→17:00)
[2018-10-17] MEDS ORDERED: PROMETH/CODEINE 6.25/10MG 5 ML SYRUP. PO PRN (14:30)
[2018-10-17 15:00] VITALS: BP 150/70
[2018-10-17 15:43] LABS: INFLUENZA A PATIENT NEGATIVE (NEGATIVE); INFLUENZA B PATIENT NEGATIVE (NEGATIVE)
[2018-10-17 19:00] VITALS: BP 157/74
--- NOTE | 2018-10-17 20:19 | EKG ---
[facility] [address] [place] [address] Test Date: 2018-10-17 Test Time: 20:14:59 Pat Name: RVAI RICKS Department: Room: [facility] Gender: M Stock Layer: CANDI : 1940 Requested By: DEBRA ARNOLD Order Number: [id number] Reading MD: Martinez Malave Measurements Intervals Spring Rate: 85 P: 54 WA: 162 QRS: -26 QRSD: 84 T: 49 QT: 372 QTc: 448 Interpretive Statements SINUS RHYTHM LOW LIMB LEAD VOLTAGE Electronically Signed On 10-20-2018 9:45:23 [employer] by Martinez Malave
[2018-10-17] MEDS: FAMOTIDINE 20 MG TABLET. PO SCH (21:00)
[2018-10-17] MEDS: ATORVASTATIN CALCIUM 10 MG TABLET. PO SCH (21:00)
[2018-10-17] MEDS: AMITRIPTYLINE HCL 10 MG TABLET. PO SCH (21:00)
[2018-10-17 23:00] VITALS: BP 140/127
[2018-10-18 03:00] VITALS: BP 111/74
[2018-10-18 04:52] LABS: CALCIUM 8.2 mg/dL (8.5-10.1); CREATININE 0.6 mg/dL (0.7-1.3)
[2018-10-18 04:53] LABS: CHOLESTEROL/HDL RATIO 2.6
[2018-10-18 04:55] LABS: POTASSIUM 2.9 mmol/L (3.5-5.1)
[2018-10-18] MEDS ORDERED: POTASSIUM CHLORIDE 20 MEQ TABLET.ER. PO ONE ×2 (05:30→07:30)
[2018-10-18] MEDS ORDERED: POTASSIUM ACETATE IV SCH (06:00)
[2018-10-18] MEDS ORDERED: NORMAL SALINE IV SCH (06:00)
[2018-10-18 07:00] VITALS: BP 109/57
[2018-10-18] MEDS: POTASSIUM CHLORIDE 30 MEQ in IV NORMAL SALINE 1000ML BAG 1,000 ML IV SCH ×2 (07:15→23:18)
[2018-10-18] MEDS: INSULIN LISPRO 300 UNITS/3 ML INSULN.PEN. SQ SCH ×3 (08:00→17:00)
[2018-10-18] MEDS: ASPIRIN ENTERIC COATED 325 MG TABLET.DR. PO SCH (08:22)
[2018-10-18] MEDS: FAMOTIDINE 20 MG TABLET. PO SCH ×2 (08:23→23:18)
[2018-10-18 11:00] VITALS: BP 140/71
--- NOTE | 2018-10-18 12:25 | PDOC ---
PROGRESS NOTES Subjective Subjective four loose stools today Objective Objective Vital Signs Date Time Temp Pulse Resp B/P (MAP) Pulse Ox O2 Delivery O2 Flow Rate FiO2 10/18/18 07:00 97.0 75 20 109/57 (74) 95 Room Air 97.0 Intake and Output 10/18/18 07:01 Output Total 1650 ml Balance -1650 ml Output Urine Total 1650 ml # Bowel Movements 4 Physical Exam Abdomen: Normal bowel sounds, Soft Heart: Regular rate, Normal S1, Normal S2 Extremities: No clubbing, No cyanosis General: Alert, Cooperative HEENT: Atraumatic Lungs: Clear to auscultation MUSCULOSKELETAL: Osteoarthritic changes both hands Neck: Supple Neuro: Normal speech Psych/Mental Status: Mental status NL Skin: No breakdown Diagnosis Problem List Problems Medical Problems: (1) Dehydration Status: Acute (2) Gastroenteritis Status: Acute Assessment Assessment Problems Medical Problems: (1) Dehydration Status: Acute (2) Gastroenteritis Status: Acute FINAL IMPRESSION: 1. Viral gastroenteritis. 2. Upper respiratory infection, recent. 3. Hypokalemia. 4. Dehydration. 5. Diabetes. 6. Late effects of polio. 7. Hypertension. 8. Hyperlipidemia. PLAN: influenza- neg. cxr -ve urine neg. stool c/s. replace pot 2.9 today. IV fluids. At this time, admit to hospital, hydrate with IV fluids, replace potassium, check for flu and start on clear liquid diet, advance as tolerated, see if the patient improves in the next 24-48 hours. Plan Plan of Care Problems Medical Problems: (1) Dehydration Status: Acute (2) Gastroenteritis Status: Acute Comment Review of Relevant I have reviewed the following items purnima (where applicable) has been applied. Labs Laboratory Tests Test 10/17/18 14:45 10/17/18 17:02 10/17/18 20:40 10/18/18 03:35 Influenza Type A Antigen Negative (NEGATIVE) Influenza Type B Antigen Negative (NEGATIVE) Glucose (Fingerstick) 213 mg/dL (70-99) 189 mg/dL (70-99) Sodium Level 140 mmol/L (136-145) Potassium Level 2.9 mmol/L (3.5-5.1) Chloride Level 109 mmol/L (98-107) Carbon Dioxide Level 19 mmol/L (21-32) Anion Gap 12 (6-14) Blood Urea Nitrogen 7 mg/dL (8-26) Creatinine 0.6 mg/dL (0.7-1.3) Estimated GFR (Cockcroft-Gault) 131.0 Glucose Level 160 mg/dL (70-99) Calcium Level 8.2 mg/dL (8.5-10.1) Triglycerides Level 175 mg/dL (0-150) Cholesterol Level 102 mg/dL (0-200) LDL Cholesterol, Calculated 27 mg/dL (0-100) VLDL Cholesterol, Calculated 35 mg/dL (0-40) Non-HDL Cholesterol Calculated 62 mg/dL (0-129) HDL Cholesterol 40 mg/dL (40-60) Cholesterol/HDL Ratio 2.6 Test 10/18/18 03:55 10/18/18 08:00 Magnesium Level 2.0 mg/dL (1.8-2.4) Thyroid Stimulating Hormone (TSH) 2.160 uIU/mL (0.358-3.74) Glucose (Fingerstick) 145 mg/dL (70-99) Medications Current Medications Amitriptyline HCl (Elavil) 10 mg QHS PO Last administered on 10/17/18at 21:00; Start 10/17/18 at 21:00 Aspirin (Ecotrin) 325 mg DAILY08 PO Last administered on 10/18/18at 08:22; Start 10/17/18 at 13:00 Atorvastatin Calcium (Lipitor) 10 mg HS PO Last administered on 10/17/18at 21:00 ; Start 10/17/18 at 21:00 Enoxaparin Sodium (Lovenox 40mg Syringe) 40 mg Q24H SQ Last administered on 09/23at 13:54; Start 10/17/18 at 13:00 Famotidine (Pepcid) 20 mg BID PO Last administered on 10/18/18at 08:23; Start at 21:00 Insulin Human Lispro (HumaLOG) 0-7 UNITS TIDWMEALS SQ Last administered on 10/17at 17:00; Start 10/17/18 at 12:30 Potassium Chloride 30 meq/ Sodium Chloride 1,015 ml @ 75 mls/hr [id number] IV Last administered on 10/18/18at 07:15; Start 10/18/18 at 06:00 Potassium Acetate 30 meq/Sodium Chloride 1,015 ml @ 75 mls/hr [id number] IV ; Start 10/18/18 at 06:00; Stop 10/18/18 at 06:00; Status DC Potassium Chloride (Klor-Con) 20 meq 1X ONCE PO Last administered on at 14:00; Start 10/17/18 at 14:00; Stop 10/17/18 at 14:01; Status DC Potassium Chloride (Klor-Con) 40 meq 1X ONCE PO Last administered on at 05:57; Start 10/18/18 at 05:30; Stop 10/18/18 at 05:35; Status DC Potassium Chloride (Klor-Con) 40 meq 1X ONCE PO Last administered on at 08:22; Start 10/18/18 at 07:30; Stop 10/18/18 at 07:32; Status DC Promethazine HCl/ Codeine (Phenergan With Codeine Oral Syrup) 5 ml PRN Q6HRS PRN PO COUGH; Start 10/17/18 at 14:30 Vitals/I & O Vital Sign - Last 24 Hours 10/17/18 10/17/18 10/17/18 10/17/18 15:00 19:00 20:00 23:00 Temp 98.4 98.4 98.7 98.4 98.4 98.7 Pulse 85 88 75 B/P (MAP) 150/70 (96) 157/74 (101) 140/127 (131) Pulse Ox 96 96 99 O2 Delivery Room Air Room Air Room Air Room Air 10/18/18 10/18/18 03:00 07:00 Temp 97.8 97.0 97.8 97.0 Pulse 77 75 Resp 20 B/P (MAP) 111/74 (86) 109/57 (74) Pulse Ox 100 95 O2 Delivery Room Air Room Air Intake and Output 10/17/18 10/17/18 10/18/18 15:01 23:01 07:01 Output Total 250 ml 1300 ml 100 ml Balance -250 ml -1300 ml -100 ml DEBRA ARNOLD MD Oct 18, 2018 12:25
[2018-10-18] MEDS: ENOXAPARIN 40 MG/0.4 ML SYRINGE. SQ SCH (12:28)
[2018-10-18] MEDS: LOPERAMIDE 2 MG CAPSULE PO PRN ×4 (14:03→23:18)
[2018-10-18 15:00] VITALS: BP 158/73
[2018-10-18 19:00] VITALS: BP 169/72
[2018-10-18 23:00] VITALS: BP 156/78
[2018-10-18] MEDS: ATORVASTATIN CALCIUM 10 MG TABLET. PO SCH (23:18)
[2018-10-18] MEDS: AMITRIPTYLINE HCL 10 MG TABLET. PO SCH (23:19)
[2018-10-19 03:00] VITALS: BP 157/71
[2018-10-19] MEDS: LOPERAMIDE 2 MG CAPSULE PO PRN (04:07)
[2018-10-19 04:43] LABS: CALCIUM 8.6 mg/dL (8.5-10.1); CREATININE 0.6 mg/dL (0.7-1.3); POTASSIUM 3.7 mmol/L (3.5-5.1)
[2018-10-19 07:00] VITALS: BP 167/80
[2018-10-19] MEDS: INSULIN LISPRO 300 UNITS/3 ML INSULN.PEN. SQ SCH ×3 (08:00→16:14)
[2018-10-19] MEDS: FAMOTIDINE 20 MG TABLET. PO SCH ×2 (08:59→20:06)
[2018-10-19] MEDS: ASPIRIN ENTERIC COATED 325 MG TABLET.DR. PO SCH (08:59)
--- NOTE | 2018-10-19 09:55 | PDOC ---
PROGRESS NOTES Subjective Subjective still has loose stools Objective Objective Vital Signs Date Time Temp Pulse Resp B/P (MAP) Pulse Ox O2 Delivery O2 Flow Rate FiO2 10/19/18 07:00 97.8 85 18 167/80 (109) 98 97.8 10/19/18 03:00 Room Air Intake and Output 10/19/18 07:01 Intake Total 700 ml Output Total 1250 ml Balance -550 ml Intake Oral 700 ml Output Urine Total 1250 ml # Bowel Movements 12 Physical Exam Abdomen: Normal bowel sounds, Soft Heart: Regular rate, Normal S1, Normal S2 Extremities: No clubbing, No cyanosis General: Alert, Cooperative HEENT: Atraumatic Lungs: Clear to auscultation MUSCULOSKELETAL: Osteoarthritic changes both hands Neck: Supple Neuro: Normal speech Psych/Mental Status: Mental status NL Skin: No breakdown Diagnosis Problem List Problems Medical Problems: (1) Dehydration Status: Acute (2) Gastroenteritis Status: Acute Assessment Assessment Problems Medical Problems: (1) Dehydration Status: Acute (2) Gastroenteritis Status: Acute FINAL IMPRESSION: 1. Viral gastroenteritis. 2. Upper respiratory infection, recent. 3. Hypokalemia. 4. Dehydration. 5. Diabetes. 6. Late effects of polio. 7. Hypertension. 8. Hyperlipidemia. PLAN: SNU screen.pt is weak. pt/ot/rehab influenza- neg. cxr -ve urine neg. stool c/s pending. replaced pot 4.0 today. continue IV fluids. Plan Plan of Care Problems Medical Problems: (1) Dehydration Status: Acute (2) Gastroenteritis Status: Acute Comment Review of Relevant I have reviewed the following items purnima (where applicable) has been applied. Labs Laboratory Tests Test 10/18/18 11:55 10/18/18 13:55 10/18/18 16:17 10/18/18 20:33 Glucose (Fingerstick) 149 mg/dL (70-99) 152 mg/dL (70-99) 228 mg/dL (70-99) Potassium Level 3.8 mmol/L (3.5-5.1) Test 10/19/18 04:00 10/19/18 07:47 Sodium Level 142 mmol/L (136-145) Potassium Level 3.7 mmol/L (3.5-5.1) Chloride Level 109 mmol/L (98-107) Carbon Dioxide Level 22 mmol/L (21-32) Anion Gap 11 (6-14) Blood Urea Nitrogen 4 mg/dL (8-26) Creatinine 0.6 mg/dL (0.7-1.3) Estimated GFR (Cockcroft-Gault) 131.0 Glucose Level 132 mg/dL (70-99) Calcium Level 8.6 mg/dL (8.5-10.1) Glucose (Fingerstick) 129 mg/dL (70-99) Medications Current Medications Loperamide HCl (Imodium) 2 mg PRN Q15MIN PRN PO DIARRHEA Last administered on at 04:07; Start 10/18/18 at 12:30 Vitals/I & O Vital Sign - Last 24 Hours 10/18/18 10/18/18 10/18/18 10/18/18 11:00 15:00 19:00 20:00 Temp 96.5 97.9 98.3 96.5 97.9 98.3 Pulse 78 81 90 Resp 20 20 20 B/P (MAP) 140/71 (94) 158/73 (101) 169/72 (104) Pulse Ox 98 96 97 O2 Delivery Room Air Room Air Room Air Room Air 10/18/18 10/19/18 10/19/18 23:00 03:00 07:00 Temp 97.1 98.1 97.8 97.1 98.1 97.8 Pulse 77 84 85 Resp 20 20 18 B/P (MAP) 156/78 (104) 157/71 (99) 167/80 (109) Pulse Ox 97 96 98 O2 Delivery Room Air Room Air Intake and Output 10/18/18 10/18/18 10/19/18 15:01 23:01 07:01 Intake Total 480 ml 220 ml Output Total 800 ml 450 ml Balance -320 ml -230 ml DEBRA ARNOLD MD Oct 19, 2018 09:55
[2018-10-19 11:00] VITALS: BP 166/85
[2018-10-19] MEDS: POTASSIUM CHLORIDE 30 MEQ in IV NORMAL SALINE 1000ML BAG 1,000 ML IV SCH (11:15)
[2018-10-19] MEDS: ENOXAPARIN 40 MG/0.4 ML SYRINGE. SQ SCH (13:13)
--- NOTE | 2018-10-19 14:36 | NUR ---
SW following for discharge planning. Chart reviewed, discussed with RN. Pt's dtr Juana Barthsom ([phone]) contacted [facility]IER to discuss pt needing a hospital bed at home. ELIER explained pt would need two medicare qualifying diagnoses for medicare to pay for a hospital bed and this can take some time, Juana reported she does have a twin bed which she can move into the living room for pt when he returns home. Juana also requested a chadwick lift, which per Malou (STEPHANIE), Medicare does not pay for chadwick lifts. ELIER advised family can rent both bed and chadwick lift from [employer]. ELIER also discussed pt probably needing a SNU stay, daughter in agreement and would like referral sent to [facility]. SW faxed referral to [facility]. Per pt's daughter, pt was receiving services through [facility], although didn't understand why they were there and refused to participate, pt's electric wheelchair apparently broke so pt does not have this anymore. Pt's dtr reported she can get another one if need be. SW will continue to follow.
[2018-10-19 15:00] VITALS: BP 149/75
[2018-10-19 19:00] VITALS: BP 139/72
[2018-10-19] MEDS: ATORVASTATIN CALCIUM 10 MG TABLET. PO SCH (20:06)
[2018-10-19] MEDS: AMITRIPTYLINE HCL 10 MG TABLET. PO SCH (20:06)
[2018-10-20 03:00] VITALS: BP 163/87
[2018-10-20] MEDS ORDERED: ONDANSETRON PF 4 MG/2 ML VIAL. IV PRN (03:00)
[2018-10-20] MEDS: POTASSIUM CHLORIDE 30 MEQ in IV NORMAL SALINE 1000ML BAG 1,000 ML IV SCH ×2 (03:07→12:08)
[2018-10-20 07:00] VITALS: BP 165/79
[2018-10-20] MEDS: FAMOTIDINE 20 MG TABLET. PO SCH (08:51)
[2018-10-20] MEDS: ASPIRIN ENTERIC COATED 325 MG TABLET.DR. PO SCH (08:51)
[2018-10-20] MEDS: INSULIN LISPRO 300 UNITS/3 ML INSULN.PEN. SQ SCH ×2 (08:59→12:00)
--- NOTE | 2018-10-20 10:21 | PDOC ---
PROGRESS NOTES Subjective Subjective no more loose stools Objective Objective Vital Signs Date Time Temp Pulse Resp B/P (MAP) Pulse Ox O2 Delivery O2 Flow Rate FiO2 10/20/18 07:00 97.9 95 18 165/79 (107) 96 Room Air 97.9 Intake and Output 10/20/18 07:01 Output Total 550 ml Balance -550 ml Output Urine Total 550 ml # Voids 7 # Bowel Movements 4 Physical Exam Abdomen: Normal bowel sounds, Soft Heart: Regular rate, Normal S1, Normal S2 Extremities: No clubbing, No cyanosis General: Alert, Cooperative HEENT: Atraumatic Lungs: Clear to auscultation MUSCULOSKELETAL: Osteoarthritic changes both hands Neck: Supple Neuro: Normal speech Psych/Mental Status: Mental status NL Skin: No breakdown Diagnosis Problem List Problems Medical Problems: (1) Dehydration Status: Acute (2) Gastroenteritis Status: Acute Assessment Assessment Problems Medical Problems: (1) Dehydration Status: Acute (2) Gastroenteritis Status: Acute FINAL IMPRESSION: 1. Viral gastroenteritis. 2. Upper respiratory infection, recent. 3. Hypokalemia. 4. Dehydration. 5. Diabetes. 6. Late effects of polio. 7. Hypertension. 8. Hyperlipidemia. PLAN: SNU transfer. pt is weak. pt/ot/rehab influenza- neg. cxr -ve urine neg. stool c/s pending. replaced pot.. d/c IV fluids. Plan Plan of Care Problems Medical Problems: (1) Dehydration Status: Acute (2) Gastroenteritis Status: Acute Comment Review of Relevant I have reviewed the following items purnima (where applicable) has been applied. Labs Laboratory Tests Test 10/19/18 11:50 10/19/18 15:42 10/20/18 08:48 Glucose (Fingerstick) 135 mg/dL (70-99) 147 mg/dL (70-99) 166 mg/dL (70-99) Medications Current Medications Ondansetron HCl (Zofran) 4 mg PRN Q6HRS PRN IV NAUSEA/VOMITING Last administered on 10/20/18at 03:06; Start 10/20/18 at 03:00 Vitals/I & O Vital Sign - Last 24 Hours 10/19/18 10/19/18 10/19/18 10/19/18 11:00 15:00 19:00 20:50 Temp 97.6 97.6 97.6 97.6 Pulse 80 75 84 Resp 18 18 19 B/P (MAP) 166/85 (112) 149/75 (99) 139/72 (94) Pulse Ox 97 97 98 O2 Delivery Room Air Room Air Room Air Room Air 10/20/18 10/20/18 03:00 07:00 Temp 97.9 97.9 Pulse 96 95 Resp 18 18 B/P (MAP) 163/87 (112) 165/79 (107) Pulse Ox 96 96 O2 Delivery Room Air Room Air Intake and Output 10/19/18 10/19/18 10/20/18 15:01 23:01 07:01 Output Total 550 ml Balance -550 ml DEBRA ARNOLD MD Oct 20, 2018 10:21
--- NOTE | 2018-10-20 10:25 | DISCH ---
DISCHARGE DISCHARGE INFORMATION: DISCHARGE DATE: Oct 20, 2018 FINAL DIAGNOSIS Problems Medical Problems: (1) Dehydration Status: Acute (2) Gastroenteritis Status: Acute CONDITION ON DISCHARGE: Stable CODE STATUS: Code Status: Full SENIOR CARE: SNF STAY <30 DAYS: Yes HOSPICE: HOSPICE: No HOSPICE EVAL & TREAT: No LTAC: ADMIT TO LTAC: No POST DISCHARGE ORDERS: ACTIVITY ORDERS: Progressive ambulation WEIGHT BEARING STATUS: As tolerated DIET AFTER DISCHARGE: ADA WOUND/INCISION CARE: No wound care needed CHECKS AFTER DISCHARGE: CHECKS AFTER DISCHARGE: Check blood press - daily, Check blood sugar, ac/hs, Weigh Yourself Daily TREATMENT/EQUIPMENT ORDERS: ADAPTIVE EQUIPMENT NEEDED: Walker, Wheelchair Physical Therapy For: Evalulation/Treatment Occupational Therapy For: Evaluation/Treatment DISCHARGE MEDICATIONS: Home Meds Active Scripts Potassium Chloride (KLOR-CON M20) 20 Meq Tab.er.prt, 20 MEQ PO DAILYWBKFT, #30 TAB Prov:VINEET SIMON APRN 11/30/16 Valsartan/Hydrochlorothiazide (DIOVAN HCT 160-12.5 MG TAB) 1 Each Tablet, 1 TAB PO DAILY, #30 TAB 5 Refills Prov:VINEET SIMON APRN 11/30/16 Furosemide (LASIX) 20 Mg Tablet, 1 TAB PO BID, #180 TAB 1 Refill Prov:VINEET SIMON APRN 11/30/16 Aspirin (ASPIRIN EC) 325 Mg Tablet.dr, 325 MG PO DAILY for 30 Days, TAB Prov:DEBRA ARNOLD MD 08/22/16 Reported Medications Sitagliptin Phos/Metformin Hcl (JANUMET 50-500 MG TABLET) 1 Each Tablet, 1 TAB PO BID, #60 TAB 5 Refills 08/21/16 Atorvastatin Calcium (ATORVASTATIN CALCIUM) 10 Mg Tablet, 10 MG PO HS for FOR CHOLESTEROL, #30 TAB 0 Refills 08/21/16 Amitriptyline Hcl (AMITRIPTYLINE HCL) 10 Mg Tablet, 10 MG PO DAILY 12/09/13 Ranitidine Hcl (RANITIDINE HCL) 150 Mg Capsule, 150 MG PO BID 12/09/13 DEBRA ARNOLD MD Oct 20, 2018 10:24
[2018-10-20 11:00] VITALS: BP 159/76
--- NOTE | 2018-10-20 13:00 | NUR ---
SW following. Pt will be transported at 1330 by non emergent transportation. RN, family notified.
[2018-10-20] MEDS: ENOXAPARIN 40 MG/0.4 ML SYRINGE. SQ SCH (13:05)
--- NOTE | 2018-10-20 14:39 | DISCH ---
DISCHARGE DISCHARGE INFORMATION: DISCHARGE DATE: Oct 20, 2018 FINAL DIAGNOSIS Problems Medical Problems: (1) Dehydration Status: Acute (2) Gastroenteritis Status: Acute CONDITION ON DISCHARGE: Stable CODE STATUS: Code Status: Full POST DISCHARGE ORDERS: ACTIVITY ORDERS: Progressive ambulation WEIGHT BEARING STATUS: As tolerated DIET AFTER DISCHARGE: ADA WOUND/INCISION CARE: No wound care needed CHECKS AFTER DISCHARGE: CHECKS AFTER DISCHARGE: Check blood press - daily, Check blood sugar, ac/hs, Weigh Yourself Daily TREATMENT/EQUIPMENT ORDERS: ADAPTIVE EQUIPMENT NEEDED: Walker, Wheelchair Physical Therapy For: Evalulation/Treatment Occupational Therapy For: Evaluation/Treatment DISCHARGE MEDICATIONS: Home Meds Active Scripts Aspirin (ASPIRIN EC) 325 Mg Tablet.dr, 325 MG PO DAILY for 30 Days, TAB Prov:DEBRA ARNOLD MD 08/22/16 Reported Medications Sitagliptin Phos/Metformin Hcl (YAIRUMET 50-500 MG TABLET) 1 Each Tablet, 1 TAB PO BID, #60 TAB 5 Refills 08/21/16 Atorvastatin Calcium (ATORVASTATIN CALCIUM) 10 Mg Tablet, 10 MG PO HS for FOR CHOLESTEROL, #30 TAB 0 Refills 08/21/16 Amitriptyline Hcl (AMITRIPTYLINE HCL) 10 Mg Tablet, 10 MG PO DAILY 12/09/13 Ranitidine Hcl (RANITIDINE HCL) 150 Mg Capsule, 150 MG PO BID 12/09/13 Discontinued Scripts Potassium Chloride (KLOR-CON M20) 20 Meq Tab.er.prt, 20 MEQ PO DAILYWBKFT, #30 TAB Prov:VINEET SIMON APRN 11/30/16 Valsartan/Hydrochlorothiazide (DIOVAN HCT 160-12.5 MG TAB) 1 Each Tablet, 1 TAB PO DAILY, #30 TAB 5 Refills Prov:VINEET SIMON APRN 11/30/16 Furosemide (LASIX) 20 Mg Tablet, 1 TAB PO BID, #180 TAB 1 Refill Prov:VINEET SIMON APRN 11/30/16 DEBRA ARNOLD MD Oct 20, 2018 14:39
--- NOTE | 2018-10-20 14:42 | NUR ---
Pt discharged to [facility]. Called and gave report to [facility]. All information was faxed by social work. IV removed. VSS. Assisted EMS with transferring pt to stretcher. Pt did not have any belongings in room besides briefs and hygiene products that were provided.
--- NOTE | 2018-10-20 15:27 | DISCH ---
DISCHARGE DISCHARGE INFORMATION: DISCHARGE DATE: Oct 20, 2018 FINAL DIAGNOSIS Problems Medical Problems: (1) Dehydration Status: Acute (2) Gastroenteritis Status: Acute CONDITION ON DISCHARGE: Stable CODE STATUS: Code Status: Full POST DISCHARGE ORDERS: ACTIVITY ORDERS: Resume previous activity, Activity as tolerated WEIGHT BEARING STATUS: As tolerated DIET AFTER DISCHARGE: ADA WOUND/INCISION CARE: No wound care needed CHECKS AFTER DISCHARGE: CHECKS AFTER DISCHARGE: Check blood press - daily, Check blood sugar, ac/hs, Weigh Yourself Daily TREATMENT/EQUIPMENT ORDERS: ADAPTIVE EQUIPMENT NEEDED: Walker, Wheelchair Physical Therapy For: Evalulation/Treatment Occupational Therapy For: Evaluation/Treatment DISCHARGE MEDICATIONS: Home Meds Active Scripts Aspirin (ASPIRIN EC) 325 Mg Tablet.dr, 325 MG PO DAILY for 30 Days, TAB Prov:DEBRA ARNOLD MD 08/22/16 Reported Medications Sitagliptin Phos/Metformin Hcl (JANUMET 50-500 MG TABLET) 1 Each Tablet, 1 TAB PO BID, #60 TAB 5 Refills 08/21/16 Atorvastatin Calcium (ATORVASTATIN CALCIUM) 10 Mg Tablet, 10 MG PO HS for FOR CHOLESTEROL, #30 TAB 0 Refills 08/21/16 Amitriptyline Hcl (AMITRIPTYLINE HCL) 10 Mg Tablet, 10 MG PO DAILY 12/09/13 Ranitidine Hcl (RANITIDINE HCL) 150 Mg Capsule, 150 MG PO BID 12/09/13 Discontinued Scripts Potassium Chloride (KLOR-CON M20) 20 Meq Tab.er.prt, 20 MEQ PO DAILYWBKFT, #30 TAB Prov:VINEET SIMON APRN 11/30/16 Valsartan/Hydrochlorothiazide (DIOVAN HCT 160-12.5 MG TAB) 1 Each Tablet, 1 TAB PO DAILY, #30 TAB 5 Refills Prov:VINEET SIMON APRN 11/30/16 Furosemide (LASIX) 20 Mg Tablet, 1 TAB PO BID, #180 TAB 1 Refill Prov:VINEET SIMON APRN 11/30/16 DEBRA ARNOLD MD Oct 20, 2018 15:27
--- NOTE | 2018-10-25 10:30 | PDOC ---
Provider Note Provider Note Discharge summary dictated.#[id number]. DEBRA ARNOLD MD Oct 25, 2018 10:30
--- NOTE | 2018-10-25 11:22 | DS ---
DATE OF DISCHARGE: 10/20/2018 REASON FOR ADMISSION TO THE HOSPITAL: Nausea, vomiting, diarrhea, norovirus gastroenteritis. CONSULTATIONS: None. COMPLICATIONS NOTED: None. HOSPITAL COURSE: The patient is a 78-year-old male who has history of late effects of polio. He also has diabetes and hypertension, has been having nausea and vomiting and diarrhea at least 4-5 times and he has been weak, not able to get out of the bed, was admitted to hospital with dehydration. The patient was given fluids. Potassium was low at 2.9, which was replaced. The patient had stool cultures negative for Salmonella shigella Shiga toxin. Stool viral cultures were sent, but it was not available. Stool for C. diff was negative and his A1c was 9. Cholesterol 102. Thyroid 2.1. Urine was negative. Influenza A and B was negative. Chest x-ray was negative and the patient was discharged to [facility] because he has been weak from the gastroenteritis. FINAL DIAGNOSES: 1. Viral gastroenteritis, possible norovirus. 2. Dehydration. 3. Hypokalemia. 4. Diabetes. 5. Hypertension. 6. Late effects of polio. 7. General deconditioning. DISPOSITION: He was discharged to SNU. PT, OT and see how the patient's condition improves. DEBRA ARNOLD MD DR: RIZWANA/ki JOB#: [id number] / [id number]
== END 2018-10-20 13:45 | DRG 392 ==
LOC: ER 16:55 → 4 NORTH 20:20
PROVIDERS: ADMIT Internal Medicine; ATTEND Internal Medicine
DX: A08.4 Viral intestinal infection, unspecified (principal); J06.9 Acute upper respiratory infection, unspecified; E87.6 Hypokalemia; E86.0 Dehydration; I10 Essential (primary) hypertension; E78.5 Hyperlipidemia, unspecified; E11.9 Type 2 diabetes mellitus without complications; B91 Sequelae of poliomyelitis; E78.00 Pure hypercholesterolemia, unspecified; K21.9 Gastro-esophageal reflux disease without esophagitis
CPT/HCPCS: 36415; 71045; 80048; 80053; 80061; 81001; 82962; 83036; 83735; 84132; 84443; 85025; 87045; 87493; 87804; 93005; 96361; 96365; 96375; J1650; J1815; J1885; J2405; J3480; J7030; 99285-25; G0378

== ENCOUNTER 2018-11-01 11:51 | Observation (INO) | payer MEDICARE ==
[~2018-11-01] VITALS: Ht 167.6 cm; Wt 89.2 kg
[2018-11-01 12:42] LABS: BASO # 0.1 x10^3/uL (0.0-0.2); BASO % 1 % (0-3); EOS # 0.1 x10^3/uL (0.0-0.7); EOS % 1 % (0-3); HEMATOCRIT 39.3 % (39.0-53.0); HEMOGLOBIN 12.9 g/dL (13.0-17.5); LYMPH # 1.1 x10^3/uL (1.0-4.8); LYMPH % 15 % (24-48); MEAN CORPUSCULAR HEMOGLOBIN 31 pg (25-35); MEAN CORPUSCULAR HGB CONC 33 g/dL (31-37); MEAN CORPUSCULAR VOLUME 93 fL (79-100); MONO # 0.5 x10^3/uL (0.0-1.1); MONO % 6 % (0-9); NEUT # 5.8 x10^3uL (1.8-7.7); NEUT % 77 % (31-73); PLATELET COUNT 390 x10^3/uL (140-400); RED BLOOD COUNT 4.21 x10^6/uL (4.30-5.70); RED CELL DISTRIBUTION WIDTH 15.4 % (11.5-14.5); WHITE BLOOD COUNT 7.5 x10^3/uL (4.0-11.0)
[2018-11-01 12:49] LABS: CALCIUM 9.3 mg/dL (8.5-10.1); CREATININE 0.8 mg/dL (0.7-1.3); POTASSIUM 3.8 mmol/L (3.5-5.1)
[2018-11-01 12:55] LABS: ALBUMIN 3.7 g/dL (3.4-5.0); ALBUMIN/GLOBULIN RATIO 1.2 (1.0-1.7); MAGNESIUM 2.1 mg/dL (1.8-2.4); TOTAL BILIRUBIN 0.6 mg/dL (0.2-1.0); TOTAL PROTEIN 6.8 g/dL (6.4-8.2)
--- NOTE | 2018-11-01 13:10 | RAD ---
PORTABLE CHEST 1V Clinical indications: PT STATES SOME TROUBLE BREATHING SINCE YESTERDAY, altered mental status COMPARISON: October 17, 2018. Findings: No acute lung infiltrate or pleural effusion or pulmonary edema or lung mass or pneumothorax is seen. The heart size, pulmonary vasculature, mediastinum and both rashawn are unremarkable. Impression: No acute radiographic abnormality is seen. Electronically signed by: Gianni Villalobos MD (11/01/2018 1:05 PM) [facility]
[2018-11-01 13:29] LABS: BILIRUBIN,URINE NEGATIVE (NEG); CLARITY,URINE CLEAR; COLOR,URINE YELLOW; NITRITE,URINE NEGATIVE (NEG); PROTEIN,URINE NEGATIVE (NEG-TRACE); UROBILINOGEN,URINE 0.2 mg/dL (0.2 mg/dL)
[2018-11-01 13:37] LABS: BACTERIA,URINE 0 /HPF (0-FEW); RBC,URINE 0 /HPF (0-2); WBC,URINE 0 /HPF (0-4)
--- NOTE | 2018-11-01 16:12 | RAD ---
CT HEAD WO CONTRAST Clinical indications: CONFUSION COMPARISON: August 21, 2016. Technique: Noncontrast axial cross sectional scanning of the head was performed. PQRS compliance Statement One or more of the following individualized dose reduction techniques were utilized for this study: 1. Automated exposure control 2. Adjustment of the mA and/or kV according to patient size 3. Use of iterative reconstruction technique Findings: No acute intracranial hemorrhage or midline shift or mass-effect or hydrocephalus or extra-axial fluid collection is seen. No new focal hypodense area or sulci effacement is seen to indicate an acute infarct or edema radiographically. No skull fracture or pneumocephalus is seen. No opacification of the mastoid sinuses or the paranasal sinuses is seen. The maxillary sinuses are not completely seen in this study. Impression: No acute intracranial abnormality is seen. Electronically signed by: Gianni Villalobos MD (11/01/2018 4:08 PM) [facility]
--- NOTE | 2018-11-01 16:24 | PHYS DOC ---
Past Medical History Past Medical History: Diabetes-Type II, GERD, High Cholesterol, Hypertension Additional Past Medical Histor: Polio Past Surgical History: Other Additional Past Surgical Histo: L ankle Alcohol Use: Sober Drug Use: None Adult General Chief Complaint Chief Complaint: ALTERED MENTAL STATUS [facility] HPI Patient is a 78-year-old male who presents with report of confusion out at the prison. Patient recently was placed on October 16 and had episodes of confusion last night and again this morning. Patient reportedly had gotten into an argument with his stating that she had agreed to bring him some food and when she didn't bring the food he became very irate and started yelling at her. Patient's indicates that she never said anything about bringing food. Patient reportedly again became very irate at the prison, packed his bags and stated that he was leaving. Patient has no recollection of this. Patient was sent over from nursing facility by his primary care provider with request for a workup. Patient at this time denies any complaints and states that he thought everything was okay. Review of Systems Review of Systems Constitutional: Denies fever or chills [] Respiratory: Denies cough or shortness of breath [] Cardiovascular: No additional information not addressed in HPI [] GI: Denies abdominal pain, nausea, vomiting, bloody stools or diarrhea [] : Denies dysuria or hematuria [] Musculoskeletal: Denies back pain or joint pain [] Integument: Denies rash or skin lesions [] Neurologic: Denies headache, focal weakness or sensory changes [] All other systems were reviewed and found to be within normal limits, except as documented in this note. Allergies Allergies Allergies Coded Allergies Type Severity Reaction Last Updated Verified No Known Drug Allergies 03/22/15 No Physical Exam Physical Exam Constitutional: Well developed, well nourished, no acute distress, non-toxic appearance. [] HENT: Normocephalic, atraumatic, bilateral external ears normal, oropharynx moist, no oral exudates, nose normal. [] Eyes: PERRLA, EOMI, conjunctiva normal, no discharge. [] Neck: Normal range of motion, no tenderness, supple, no stridor. [] Cardiovascular: Regular rate and rhythm [] Lungs & Thorax: Bilateral breath sounds clear to auscultation [] Abdomen: Bowel sounds normal, soft, no tenderness. [] Skin: Warm, dry, no erythema, no rash. [] Extremities: No tenderness, no cyanosis, no clubbing, ROM intact, no edema. [] Neurologic: Awake and alert, no focal deficits noted. [] Current Patient Data Vital Signs Vital Signs Date Time Temp Pulse Resp B/P (MAP) Pulse Ox O2 Delivery O2 Flow Rate FiO2 11/01/18 14:30 84 23 97 11/01/18 11:55 98.2 181/91 (121) Room Air 98.2 Lab Values Laboratory Tests Test 11/01/18 12:30 11/01/18 12:34 White Blood Count 7.5 x10^3/uL (4.0-11.0) Red Blood Count 4.21 x10^6/uL (4.30-5.70) L Hemoglobin 12.9 g/dL (13.0-17.5) L Hematocrit 39.3 % (39.0-53.0) Mean Corpuscular Volume 93 fL (79-100) Mean Corpuscular Hemoglobin 31 pg (25-35) Mean Corpuscular Hemoglobin Concent 33 g/dL (31-37) Red Cell Distribution Width 15.4 % (11.5-14.5) H Platelet Count 390 x10^3/uL (140-400) Neutrophils (%) (Auto) 77 % (31-73) H Lymphocytes (%) (Auto) 15 % (24-48) L Monocytes (%) (Auto) 6 % (0-9) Eosinophils (%) (Auto) 1 % (0-3) Basophils (%) (Auto) 1 % (0-3) Neutrophils # (Auto) 5.8 x10^3uL (1.8-7.7) Lymphocytes # (Auto) 1.1 x10^3/uL (1.0-4.8) Monocytes # (Auto) 0.5 x10^3/uL (0.0-1.1) Eosinophils # (Auto) 0.1 x10^3/uL (0.0-0.7) Basophils # (Auto) 0.1 x10^3/uL (0.0-0.2) Sodium Level 141 mmol/L (136-145) Potassium Level 3.8 mmol/L (3.5-5.1) Chloride Level 107 mmol/L (98-107) Carbon Dioxide Level 21 mmol/L (21-32) Anion Gap 13 (6-14) Blood Urea Nitrogen 9 mg/dL (8-26) Creatinine 0.8 mg/dL (0.7-1.3) Estimated GFR (Cockcroft-Gault) 94.0 BUN/Creatinine Ratio 11 (6-20) Glucose Level 210 mg/dL (70-99) H Calcium Level 9.3 mg/dL (8.5-10.1) Magnesium Level 2.1 mg/dL (1.8-2.4) Total Bilirubin 0.6 mg/dL (0.2-1.0) Aspartate Amino Transferase (AST) 27 U/L (15-37) Alanine Aminotransferase (ALT) 48 U/L (16-63) Alkaline Phosphatase 86 U/L (46-116) Troponin I Quantitative < 0.017 ng/mL (0.000-0.055) Total Protein 6.8 g/dL (6.4-8.2) Albumin 3.7 g/dL (3.4-5.0) Albumin/Globulin Ratio 1.2 (1.0-1.7) Urine Collection Type U cath Urine Color Yellow Urine Clarity Clear Urine pH 6.0 Urine Specific [place] 1.020 Urine Protein Negative mg/dL (NEG-TRACE) Urine Glucose (UA) >=1000 mg/dL (NEG) Urine Ketones (Stick) Negative mg/dL (NEG) Urine Blood Negative (NEG) Urine Nitrite Negative (NEG) Urine Bilirubin Negative (NEG) Urine Urobilinogen Dipstick 0.2 mg/dL (0.2 mg/dL) Urine Leukocyte Esterase Small (NEG) Urine RBC 0 /HPF (0-2) Urine WBC 0 /HPF (0-4) Urine Bacteria 0 /HPF (0-FEW) Laboratory Tests 11/01/18 12:30 Laboratory Tests 11/01/18 12:30 EKG EKG [] Radiology/Procedures Radiology/Procedures [] Impressions: Chest x-ray demonstrates no acute process. CT of the head demonstrates no acute intracranial abnormalities. Course & Med Decision Making Course & Med Decision Making Pertinent Labs and Imaging studies reviewed. (See chart for details) Patient evaluated by medical staff and IV was established and blood work drawn. UA was obtained. Chest x-ray and CT imaging of the brain were obtained. Patient' s workup has returned unremarkable. Findings of workup has been reviewed with patient's family and patient and family is concerned regarding patient's level of confusion. I have discussed patient's case with Dr. Yoo and he will admit the patient under his care. Dragon Disclaimer Dragon Disclaimer This electronic medical record was generated, in whole or in part, using a voice recognition dictation system. Departure Departure Impression: Primary Impression: Confusion Disposition: 09 ADMITTED INPATIENT Admitting Physician: Debra Yoo Condition: GOOD Referrals: DEBRA YOO MD (PCP) JESSY MALDONADO Jr. DO Nov 01, 2018 16:24
[2018-11-01 17:50] VITALS: BP 155/73
[2018-11-01 19:00] VITALS: BP 180/77
[2018-11-01] MEDS ORDERED: DEXTROSE 50% 25 GM / 50ML DISP.SYRIN. IV PRN ×2 (19:45→20:45)
[2018-11-01] MEDS: ATORVASTATIN CALCIUM 10 MG TABLET. PO SCH (21:32)
[2018-11-01] MEDS: ENOXAPARIN 40 MG/0.4 ML SYRINGE. SQ SCH (21:32)
[2018-11-01] MEDS: FAMOTIDINE 20 MG TABLET. PO SCH (21:32)
[2018-11-01 23:00] VITALS: BP 167/74
[2018-11-02 03:00] VITALS: BP 173/78
[2018-11-02 07:00] VITALS: BP 161/92
[2018-11-02] MEDS: INSULIN LISPRO 300 UNITS/3 ML INSULN.PEN. SQ SCH ×5 (08:00→17:00)
[2018-11-02] MEDS: LINAGLIPTIN 5 MG TABLET PO SCH (08:38)
[2018-11-02] MEDS: AMITRIPTYLINE HCL 10 MG TABLET. PO SCH (08:38)
[2018-11-02] MEDS: FAMOTIDINE 20 MG TABLET. PO SCH ×2 (08:38→20:46)
[2018-11-02] MEDS: metFORMIN XR 500 MG TAB.ER.24H PO SCH (08:38)
[2018-11-02] MEDS: ASPIRIN ENTERIC COATED 325 MG TABLET.DR. PO SCH (08:38)
--- NOTE | 2018-11-02 10:25 | PDOC ---
Provider Note Provider Note Pt seen.H&P dictated. #[id number] DEBRA ARNOLD MD Nov 02, 2018 10:25
--- NOTE | 2018-11-02 10:28 | DISCH ---
DISCHARGE DISCHARGE INFORMATION: DISCHARGE DATE: Nov 02, 2018 FINAL DIAGNOSIS Problems Medical Problems: (1) Confusion Status: Acute CONDITION ON DISCHARGE: Stable CODE STATUS: Code Status: Full PRISON: SNF STAY <30 DAYS: Yes POST DISCHARGE ORDERS: ACTIVITY ORDERS: Resume previous activity, Activity as tolerated WEIGHT BEARING STATUS: As tolerated DIET AFTER DISCHARGE: ADA WOUND/INCISION CARE: No wound care needed CHECKS AFTER DISCHARGE: CHECKS AFTER DISCHARGE: Check blood press - daily, Check blood sugar, ac/hs, Weigh Yourself Daily TREATMENT/EQUIPMENT ORDERS: ADAPTIVE EQUIPMENT NEEDED: Walker, Wheelchair Physical Therapy For: Evalulation/Treatment Occupational Therapy For: Evaluation/Treatment DISCHARGE MEDICATIONS: Home Meds Active Scripts Aspirin (ASPIRIN EC) 325 Mg Tablet.dr, 325 MG PO DAILY for 30 Days, TAB Prov:DEBRA ARNOLD MD 08/22/16 Reported Medications Sitagliptin Phos/Metformin Hcl (JANUMET 50-500 MG TABLET) 1 Each Tablet, 1 TAB PO BID, #60 TAB 5 Refills 08/21/16 Atorvastatin Calcium (ATORVASTATIN CALCIUM) 10 Mg Tablet, 10 MG PO HS for FOR CHOLESTEROL, #30 TAB 0 Refills 08/21/16 Amitriptyline Hcl (AMITRIPTYLINE HCL) 10 Mg Tablet, 10 MG PO DAILY 12/09/13 Ranitidine Hcl (RANITIDINE HCL) 150 Mg Capsule, 150 MG PO BID 12/09/13 DEBRA ARNOLD MD Nov 02, 2018 10:28
[2018-11-02 11:00] VITALS: BP 192/89
--- NOTE | 2018-11-02 11:08 | HP ---
ADMIT DATE: 11/01/2018 REASON FOR ADMISSION TO THE HOSPITAL: Confusion and altered mental status. HISTORY OF PRESENT ILLNESS: The patient is a 78-year-old male with history of diabetes, late effects of polio. He was admitted 2-3 weeks ago to [place] for viral gastroenteritis, had a Norovirus, and he was dehydrated at that time. He was treated with fluids, was sent to [facility]. He was doing relatively well. Yesterday, he was confused at the alf, did not know where he was and could not recognize the people. Family requested to be transferred to the hospital, seen in the ER and no focal findings. CT was negative. The patient was admitted for further investigation. The patient has risk factors including diabetes, hypertension, hyperlipidemia. PAST MEDICAL HISTORY: As mentioned above, late effects of polio, has been in wheelchair level, has diabetes, hypertension, hyperlipidemia, GERD. PAST SURGICAL HISTORY: Some ankle surgery. ALLERGIES: No known drug allergies. MEDICATIONS AT HOME: The patient is on amitriptyline 10 mg daily, aspirin 325 daily, atorvastatin 10 mg daily, Zantac 150 mg twice a day, Janumet 50/500 twice a day. PERSONAL HISTORY: Still smokes 3-4 cigarettes daily. He is ex-alcoholic, but has been alcohol free for 10-[address]. SOCIAL HISTORY: Lives with his , is in wheelchair level. FAMILY HISTORY: Positive for diabetes, heart disease. REVIEW OF SYSTEMS: CARDIAC: Denies any chest pain. GASTROINTESTINAL: No nausea or vomiting. NEUROLOGICAL: No weakness. The patient says he did not remember what happened yesterday, making good conversation. PHYSICAL EXAMINATION: VITAL SIGNS: At the time of admission shows a temperature 98, pulse 75, respirations 18, blood pressure 181/91, 97 on room air. HEENT: Head is atraumatic. Pupils equal. Oral cavity, few teeth present. NECK: Supple. Thyroid not enlarged. JVD not elevated. CHEST: Symmetrical. CARDIOVASCULAR: S1, S2. LUNGS: Clear. ABDOMEN: Soft, protuberant belly, but soft. EXTERNAL GENITALIA: No Booth. RECTAL: Deferred. EXTREMITIES: The patient has weakness in lower extremity secondary to late effects of polio. LABORATORY DATA: Shows a white count 7, hemoglobin 13, platelets 390. Electrolytes show sodium 131, potassium 3.8, chloride was 101, bicarbonate 21, BUN 9, creatinine 0.8, glucose 210. Magnesium 2.1. LFTs were normal. Urine shows more than 1000 glucose. He had a chest x-ray that was negative. CT head was negative. EKG done, report is pending. FINAL IMPRESSION: 1. Confusion yesterday, was not sure where he was. 2. Risk factors for stroke high. 3. Diabetes. 4. Hypertension. 5. Hyperlipidemia. 6. Late effects of polio. PLAN: At this time, was admit to hospital, neuro consult. The patient is already on aspirin. We will get MRI of the brain, carotid Doppler, echocardiogram to the initial stroke workup, probably if he is okay, can go back to [facility]. DEBRA ARNOLD MD DR: RIZWANA/ki JOB#: [id number] / [id number]
--- NOTE | 2018-11-02 12:32 | RAD ---
EXAMINATION: Magnetic resonance imaging (MRI) of the brain and brainstem without contrast 11/02/2018 10:16 AM HISTORY: Confusion, generalized weakness. TECHNIQUE: Multiplanar multi-weighted MRI of the brain and brainstem was performed without intravenous contrast using the general brain protocol. COMPARISON: CT head November 01, 2018, MRI brain August 21, 2016 FINDINGS: The scalp and calvarium are normal. The superior sagittal sinus demonstrates normal venous flow. The corpus callosum is normal in shape and signal intensity. The posterior fossa is unremarkable. The pituitary and sella are normal. The brainstem and craniocervical junction are unremarkable. There are T2/FLAIR signal hyperintense foci in the agusto, periventricular and subcortical white matter most suggestive of mild chronic small vessel ischemic changes. There is similar pannus formation along the posterior dens. Diffusion weighted images reveal no hyperintensities to suggest acute cerebral infarction. The susceptibility weighted sequences reveal no evidence of acute or chronic hemorrhage. The ventricles, sulci and basal cisterns are prominent compatible with moderate generalized cerebral volume loss. There is mild to moderate hippocampal volume loss. There is complete opacification of the right sphenoid sinus with moderate mucosal thickening. The visualized portions of the mastoids are unremarkable. The orbits appear normal with exception of bilateral lens replacement. Normal flow voids are demonstrated in the carotid arteries and basilar artery. IMPRESSION: No evidence for acute or subacute ischemia. Moderate generalized cerebral volume loss. There are T2/FLAIR signal hyperintense foci in the periventricular and subcortical white matter most suggestive of mild chronic small vessel ischemic changes. Findings are not significantly changed since prior examination. There is moderate mucosal thickening of the right sphenoid sinus with complete opacification. Findings may represent a mucocele. Electronically signed by: Marilyn Cantu MD (11/02/2018 12:28 PM) [id number]
[2018-11-02] MEDS ORDERED: PERFLUTREN PROTEIN-A MICROSPHR 0.22 MG/ML 3 ML VIAL. IV ONE ×2 (13:32→14:00)
[2018-11-02] MEDS ORDERED: PERFLUTREN PROTEIN-A MICROSPHR 0.22 MG/ML 3 ML VIAL. IV PRN (13:45)
--- NOTE | 2018-11-02 14:39 | NUR ---
Morning and lunch insulin SS non-administered r/t duplicate order
[2018-11-02 15:00] VITALS: BP 175/72
[2018-11-02 15:04] LABS: BARBITURATES NEG (NEG); BENZODIAZEPINES NEG (NEG); CANNABINOIDS NEG (NEG); COCAINE NEG (NEG); METHADONE NEG (NEG); OPIATES NEG (NEG); PHENCYCLIDINE NEG (NEG)
[2018-11-02 15:05] LABS: AMPHETAMINE/METHAMPHETAMINE NEG (NEG)
--- NOTE | 2018-11-02 15:09 | RAD ---
EXAM: Carotid Doppler sonogram. HISTORY: Confusion. Stroke. TECHNIQUE: Lopez scale and color Doppler sonographic evaluation of the neck with spectral waveform analysis was performed and static images are submitted for review. FINDINGS: There is intimal thickening involving the common carotid arteries, mild atherosclerotic plaque involving the carotid bulbs and external carotid arteries and moderate atherosclerotic plaque involving the proximal internal carotid arteries. The peak systolic velocity within the right common carotid artery is 67 cm/sec. The peak systolic velocity within the right internal carotid artery is 128 cm/sec and the end diastolic velocity within the right internal carotid artery is 21 cm/sec. The right ICA/CCA ratio is 1.91. The peak systolic velocity within the left common carotid artery is 65 cm/sec. The peak systolic velocity within the left internal carotid artery is 78 cm/sec and the end diastolic velocity within the left internal carotid artery is 21 cm/sec. The left ICA/CCA ratio is 1.19. There is normal antegrade flow within both vertebral arteries. IMPRESSION: 1. Elevated peak systolic velocity within the right internal carotid artery, suggesting 50-69% stenosis. No additional hemodynamically significant stenosis is seen. 2. Intimal thickening involving the common carotid arteries, mild atherosclerotic plaque involving the carotid bulbs and external carotid arteries and moderate atherosclerotic plaque involving the proximal internal carotid arteries. PQRS Compliance Statement - Stenosis calculations for CT, MR and conventional angiography are based upon measurement of the distal ICA diameter in accordance with the NASCET methodology. Stenosis calculations for carotid ultrasound studies are derived from validated velocity criteria which are known to correlate with the NASCET methodology. Electronically signed by: Maria Fernanda Jerez MD (11/02/2018 3:05 PM) [place] [id number]
--- NOTE | 2018-11-02 15:37 | PDOC2 ---
NEUROLOGY CONSULT Date of Admission Date of Admission DATE: 11/02/18 TIME: 15:23 Reason for Consult Reason for Consult: IMPRESSION: Metabolic encephalopathy. Confusion. Cognitive impairment. Elevated SBP 192 mmHg. DM. HTN. HLD. Carotid Ac stenosis, 50-60%. Polio, old. Obesity. No evidence of acute CVA this time. RECOMMENDATIONS/PLAN: BP control. Continue ASA daily. Continue Lipitor HS. lab: see orders. EEG if still here. See Vascular Surgery as outpatient. FU with PCP. TSH on 10/18/18: 2.16. HISTORY OF THE PRESENT ILLNESS: This is a 78-year-old male who presents with symptoms of confusion noted at the care home. Patient recently was placed on October 16 and had episodes of confusion last night and again this morning. Patient reportedly had gotten into an argument with his stating that she had agreed to bring him some food and when she didn't bring the food he became very irritated and yelled at her. Patient's indicates that she never said anything about bringing food. Patient reportedly again became very irate at the care home, packed his bags and stated that he was leaving. Patient has no recollection of this. PAST MEDICAL HISTORY: Consequence of polio has been in wheelchair level, has diabetes, hypertension, hyperlipidemia, GERD. PAST SURGICAL HISTORY: Some ankle surgery. ALLERGIES: No known drug allergies. SOCIAL HISTORY: Lives with his , is in wheelchair level. Still smokes 3-4 cigarettes daily. He is ex-alcoholic, but alcohol free for 10- [address]. FAMILY HISTORY: Diabetes, heart disease. MEDICATIONS: Refer to MAR REVIEW OF SYSTEMS: Constitutional: Obesity. Head: No recent traumatic brain or head injury. Skin: No edema, or rash. Ear: No infection. Eyes: No vision loss or color blindness. Nose: No bleeding or purulent discharges. Hearing: Hearing decrease. Neck: No injury. Cardiac: HTN, HLD. Pulmonary: Smoking. GI: No GI ulcer, GI bleeding. Urinary/genital: UTI. Endocrinologic: Diabetes Mellitus, obesity. Skeletomuscular: No muscular atrophy, deformity. Neurological: see HP. Psychiatric: Denies drug use/abuse. Otherwise, not [id number] review of systems. PHYSICAL EXAMINATION: General appearance is in no acute distress. HEENT: Normocephalic and nontraumatic. Eyes, nose, ears, and throat are unremarkable. Neck is supple. No lymphadenopathy. No crepitus. Cardiovascular: S1, S2, regular rate and rhythm. Pulmonary: Clear to auscultation bilaterally. Abdomen: Bowel sounds are positive. Abdomen is soft, nontender, and nondistended. Extremities: No rash, lesions, or edema. No restriction of range of motion NEUROLOGICAL EXAMINATION: Awake. Not fully oriented to time, but knew place and person. PERRL. EOMI. CN: no focal findings. Muscle tone: within normal. Muscle strength: 5 UE, 4 LE DTR: 2 UE, 1+ at knee. Plantar reflex: Neutral response bilaterally Gait: not examined in bed. Sensory exam: no abnormal findings. No cerebellar signs elicited. F-T-N test fine. Current Medications Current Medications Current Medications Insulin Human Lispro (HumaLOG) 0-7 UNITS TIDWMEALS SQ Last administered on 11/02at 13:11; Start 11/02/18 at 08:00; Stop 11/02/18 at 14:41; Status DC Dextrose (Dextrose 50%-Water Syringe) 12.5 gm PRN Q15MIN PRN IV SEE COMMENTS; Start 11/01/18 at 19:45; Stop 11/02/18 at 12:18; Status DC Amitriptyline HCl (Elavil) 10 mg DAILY PO Last administered on 11/02/18at 08:38 ; Start 11/02/18 at 09:00 Aspirin (Ecotrin) 325 mg DAILY PO Last administered on 11/02/18at 08:38; Start 11/02/18 at 09:00 Atorvastatin Calcium (Lipitor) 10 mg HS PO Last administered on 11/01/18at 21:32 ; Start 11/01/18 at 21:00 Famotidine (Pepcid) 20 mg BID PO Last administered on 11/02/18at 08:38; Start at 21:00 Metformin HCl (Glucophage Xr) 500 mg DAILYWBKFT PO Last administered on at 08:38; Start 11/02/18 at 08:00 Insulin Human Lispro (HumaLOG) 0-7 UNITS TIDWMEALS SQ ; Start 11/02/18 at 08:00 Dextrose (Dextrose 50%-Water Syringe) 12.5 gm PRN Q15MIN PRN IV SEE COMMENTS; Start 11/01/18 at 20:45 Enoxaparin Sodium (Lovenox 40mg Syringe) 40 mg Q24H SQ Last administered on at 21:32; Start 11/01/18 at 21:00 Linagliptin (Tradjenta) 5 mg DAILY PO Last administered on 11/02/18at 08:38; Start 11/02/18 at 09:00 Perflutren Protein Type A Microsphe (Optison) 0.66 mg STK-MED ONCE IV ; Start at 13:32; Stop 11/02/18 at 13:34; Status DC Perflutren Protein Type A Microsphe (Optison) 0.66 mg PRN 1X PRN IV SEE COMMENTS; Start 11/02/18 at 13:45; Stop 11/03/18 at 13:44 Active Scripts Active Klor-Con M20 (Potassium Chloride) 20 Meq Tab.er.prt 20 Meq PO DAILYWBKFT Aspirin Ec (Aspirin) 325 Mg Tablet.dr 325 Mg PO DAILY 30 Days Reported Janumet 50-500 Mg Tablet (Sitagliptin Phos/Metformin Hcl) 1 Each Tablet 1 Tab PO BID Atorvastatin Calcium 10 Mg Tablet 10 Mg PO HS Amitriptyline Hcl 10 Mg Tablet 10 Mg PO DAILY Ranitidine Hcl 150 Mg Capsule 150 Mg PO BID Allergies Allergies: Allergies Coded Allergies Type Severity Reaction Last Updated Verified No Known Drug Allergies 03/22/15 No ROS Review of System The patient denies any associated fevers, chills, headache, ear pain, rhinorrhea , sore throat, stiff neck, productive cough, chest pain, shortness of breath, back or flank pain, abdominal pain, nausea, vomiting, diarrhea, constipation, dysuria, rash, numbness, weakness, tingling, incontinence, difficulty ambulating, or diaphoresis. Physical Exam Physical Exam General: Well developed, well nourished, no acute distress, well appearing HEENT: Pupils equally round and reactive to light, EOMI, no discharge, normal conjunctiva Neck: Supple, no nuchal rigidity, no JVD, trachea midline, no tenderness Cardiac: RRR, no murmurs, no gallops, no rubs Chest/Lungs: CTAB, no wheeze, no rhonchi, no crackles Abdomen: soft, non-distended, no guarding, no peritoneal signs, non-tender Back: No tenderness Extremities: no edema, pulses intact, non-tender,capillary refill <3 sec bilateral upper and lower extremities, Neuro: Alert and oriented x 4, no focal deficits, normal speech Vitals Vitals: Vital Signs Date Time Temp Pulse Resp B/P (MAP) Pulse Ox O2 Delivery O2 Flow Rate FiO2 11/02/18 11:00 98.3 83 16 192/89 (123) 96 Room Air 98.3 Labs Labs Laboratory Tests Test 11/01/18 12:30 11/01/18 12:34 11/01/18 17:53 11/01/18 21:11 White Blood Count 7.5 x10^3/uL (4.0-11.0) Red Blood Count 4.21 x10^6/uL (4.30-5.70) Hemoglobin 12.9 g/dL (13.0-17.5) Hematocrit 39.3 % (39.0-53.0) Mean Corpuscular Volume 93 fL (79-100) Mean Corpuscular Hemoglobin 31 pg (25-35) Mean Corpuscular Hemoglobin Concent 33 g/dL (31-37) Red Cell Distribution Width 15.4 % (11.5-14.5) Platelet Count 390 x10^3/uL (140-400) Neutrophils (%) (Auto) 77 % (31-73) Lymphocytes (%) (Auto) 15 % (24-48) Monocytes (%) (Auto) 6 % (0-9) Eosinophils (%) (Auto) 1 % (0-3) Basophils (%) (Auto) 1 % (0-3) Neutrophils # (Auto) 5.8 x10^3uL (1.8-7.7) Lymphocytes # (Auto) 1.1 x10^3/uL (1.0-4.8) Monocytes # (Auto) 0.5 x10^3/uL (0.0-1.1) Eosinophils # (Auto) 0.1 x10^3/uL (0.0-0.7) Basophils # (Auto) 0.1 x10^3/uL (0.0-0.2) Sodium Level 141 mmol/L (136-145) Potassium Level 3.8 mmol/L (3.5-5.1) Chloride Level 107 mmol/L (98-107) Carbon Dioxide Level 21 mmol/L (21-32) Anion Gap 13 (6-14) Blood Urea Nitrogen 9 mg/dL (8-26) Creatinine 0.8 mg/dL (0.7-1.3) Estimated GFR (Cockcroft-Gault) 94.0 BUN/Creatinine Ratio 11 (6-20) Glucose Level 210 mg/dL (70-99) Calcium Level 9.3 mg/dL (8.5-10.1) Magnesium Level 2.1 mg/dL (1.8-2.4) Total Bilirubin 0.6 mg/dL (0.2-1.0) Aspartate Amino Transf (AST/SGOT) 27 U/L (15-37) Alanine Aminotransferase (ALT/SGPT) 48 U/L (16-63) Alkaline Phosphatase 86 U/L (46-116) Troponin I Quantitative < 0.017 ng/mL (0.000-0.055) Total Protein 6.8 g/dL (6.4-8.2) Albumin 3.7 g/dL (3.4-5.0) Albumin/Globulin Ratio 1.2 (1.0-1.7) Urine Collection Type U cath Urine Color Yellow Urine Clarity Clear Urine pH 6.0 Urine Specific Mach[place] 1.020 Urine Protein Negative mg/dL (NEG-TRACE) Urine Glucose (UA) >=1000 mg/dL (NEG) Urine Ketones (Stick) Negative mg/dL (NEG) Urine Blood Negative (NEG) Urine Nitrite Negative (NEG) Urine Bilirubin Negative (NEG) Urine Urobilinogen Dipstick 0.2 mg/dL (0.2 mg/dL) Urine Leukocyte Esterase Small (NEG) Urine RBC 0 /HPF (0-2) Urine WBC 0 /HPF (0-4) Urine Bacteria 0 /HPF (0-FEW) Glucose (Fingerstick) 177 mg/dL (70-99) 169 mg/dL (70-99) Test 11/01/18 21:40 11/02/18 07:29 11/02/18 11:32 11/02/18 14:15 Nasal Screen MRSA (PCR) Negative (Negative) Glucose (Fingerstick) 162 mg/dL (70-99) 161 mg/dL (70-99) Urine Opiates Screen Neg (NEG) Urine Methadone Screen Neg (NEG) Urine Barbiturates Neg (NEG) Urine Phencyclidine Screen Neg (NEG) Urine Amphetamine/Methamphetamine Neg (NEG) Urine Benzodiazepines Screen Neg (NEG) Urine Cocaine Screen Neg (NEG) Urine Cannabinoids Screen Neg (NEG) Urine Ethyl Alcohol Neg (NEG) Laboratory Tests Test 11/01/18 17:53 11/01/18 21:11 11/01/18 21:40 11/02/18 07:29 Glucose (Fingerstick) 177 mg/dL (70-99) 169 mg/dL (70-99) 162 mg/dL (70-99) Nasal Screen MRSA (PCR) Negative (Negative) Test 11/02/18 11:32 11/02/18 14:15 Glucose (Fingerstick) 161 mg/dL (70-99) Urine Opiates Screen Neg (NEG) Urine Methadone Screen Neg (NEG) Urine Barbiturates Neg (NEG) Urine Phencyclidine Screen Neg (NEG) Urine Amphetamine/Methamphetamine Neg (NEG) Urine Benzodiazepines Screen Neg (NEG) Urine Cocaine Screen Neg (NEG) Urine Cannabinoids Screen Neg (NEG) Urine Ethyl Alcohol Neg (NEG) ELIA ARGUETA MD Nov 02, 2018 15:37
--- NOTE | 2018-11-02 16:02 | NUR ---
ELIER following for discharge planning. Discussed with RN, pt can go back to [facility] if MRI is clear. ELIER contacted RN to determine MRI report - report was clear however pt now needing a UA. SW checked pt's discharge documentation, meds were not finalized before discharge instructions entered so Dr. Yoo having to do it again. RN contacted ELIER to advise Dr. Yoo will be doing it this evening, and pt likely discharge after dinner. ELIER contacted Yeny at [facility], who advised that would be too late because they would not be able to get pt's meds. Plan for discharge back to [facility] tomorrow (11/03/18). RN notified. ELIER will continue to follow.
--- NOTE | 2018-11-02 16:22 | NUR ---
This nurse spoke with SW. There were things that needed fixed on the DC for [facility] to accept pt. back. This nurse spoke with Dr. Yoo. Dr. Yoo stated he would fix it this evening and still ok to DC after dinner. This nurse called SW and discussed plan. SW came to unit and explained that patient cannot go back to [facility] today. Stated that is too late for [facility] to accept. Will continue to monitor.
--- NOTE | 2018-11-02 16:48 | CARD ---
MR#: [id number] Date of Study: 11/02/2018 Ordering Physician: DEBRA ARNOLD, Referring Physician: DEBRA ARNOLD Tech: Lala Cook REGINA APPROVED REPORT EXAM: Two-dimensional echocardiogram with contrast. Other Information Quality : Technically LimitedHR: 85bpm Rhythm : NSRTechnically limited study due to body habitus. INDICATION Confusion Echo Enhancing Agent Indication: Endocardial border delineation Agent/Amount Used: Optison 1mL 2D DIMENSIONS RVDd2.2 (2.9-3.5cm)Left Atrium(2D)2.9 (1.6-4.0cm) IVSd1.2 (0.7-1.1cm)Aortic Root(2D)3.0 (2.0-3.7cm) LVDd4.0 (3.9-5.9cm)LVOT Diameter1.8 (1.8-2.4cm) PWd1.1 (0.7-1.1cm)LVDs2.7 (2.5-4.0cm) FS (%) 31.5 %SV41.9 ml LVEF(%)60.0 (>50%) M-Mode DIMENSIONS Left Atrium(MM)3.19 (2.5-4.0cm)Aortic Root2.79 (2.2-3.7cm) Aortic Valve AoV Peak Mode.108.5cm/sAoV VTI21.4cm AO Peak GR.4.7mmHgLVOT Peak Mode.102.9cm/s AO Mean GR.3mmHgAVA (VMAX)2.54cm2 SHARA (VTI)2.50cm2 Mitral Valve MV E Igvfwnhx94.9cm/sMV DECEL [id number] MV A Llmjpxnl942.5cm/sE/A Ratio0.7 MV A [id number] Pulmonary Valve PV Peak Ohsycahx268.0cm/s LEFT VENTRICLE The left ventricle is normal size. There is borderline to mild concentric left ventricular hypertroph y. The left ventricular systolic function is normal. The Ejection Fraction is 55-60%. There is normal LV segmental wall motion. Transmitral Doppler flow pattern is Grade I-abnormal relaxation pattern. RIGHT VENTRICLE The right ventricle is normal size. There is normal right ventricular wall thickness. The right ventr icular systolic function is normal. ATRIA The left atrium size is normal. The right atrium size is normal. The interatrial septum is intact wit h no evidence for an atrial septal defect or patent foramen ovale as noted on 2-D or Doppler imaging. AORTIC VALVE The aortic valve is normal in structure and function. The aortic valve is trileaflet. Doppler and Col or Flow revealed no significant aortic regurgitation. There is no significant aortic valvular stenosi s. MITRAL VALVE The mitral valve is normal in structure and function. There is no evidence of mitral valve prolapse. There is no mitral valve stenosis. Doppler and Color Flow revealed no mitral valve regurgitation note d. TRICUSPID VALVE The tricuspid valve is normal in structure and function. Doppler and Color Flow revealed no tricuspid valve regurgitation noted. There is no tricuspid valve prolapse or vegetation. There is no tricuspid valve stenosis. PULMONIC VALVE Pulmonic valve is not well visualized. GREAT VESSELS The aortic root is normal in size. The ascending aorta is normal in size. PERICARDIAL EFFUSION There is no evidence of significant pericardial effusion. Critical Notification Critical Value: No <Conclusion> Technically difficult study. Optison echo contrast used for better visualization. The left ventricular systolic function is normal. The Ejection Fraction is 55-60%. There is normal LV segmental wall motion. Transmitral Doppler flow pattern is Grade I-abnormal relaxation pattern. There is no evidence of significant pericardial effusion. Signed by : Martinez Malave, Electronically Approved : 11/02/2018 16:46:33
[2018-11-02] MEDS ORDERED: ACETAMINOPHEN 325 MG TABLET. PO PRN (18:00)
[2018-11-02 20:36] VITALS: BP 162/75
[2018-11-02] MEDS: ATORVASTATIN CALCIUM 10 MG TABLET. PO SCH (20:46)
[2018-11-02] MEDS: ENOXAPARIN 40 MG/0.4 ML SYRINGE. SQ SCH (20:48)
[2018-11-02 22:39] VITALS: BP 140/84
[2018-11-03 02:52] VITALS: BP 173/74
[2018-11-03 07:00] VITALS: BP 150/74
[2018-11-03] MEDS: INSULIN LISPRO 300 UNITS/3 ML INSULN.PEN. SQ SCH (08:00)
--- NOTE | 2018-11-03 08:25 | NUR ---
SW following. Discussed with RN, pt can discharge back to [facility] today. Transportation set up for 11:15am. RN notified.
[2018-11-03] MEDS: FAMOTIDINE 20 MG TABLET. PO SCH (08:42)
[2018-11-03] MEDS: metFORMIN XR 500 MG TAB.ER.24H PO SCH (08:42)
[2018-11-03] MEDS: ASPIRIN ENTERIC COATED 325 MG TABLET.DR. PO SCH (08:42)
[2018-11-03] MEDS: LINAGLIPTIN 5 MG TABLET PO SCH (08:42)
[2018-11-03] MEDS: AMITRIPTYLINE HCL 10 MG TABLET. PO SCH (08:42)
--- NOTE | 2018-11-03 08:45 | DISCH ---
DISCHARGE DISCHARGE INFORMATION: DISCHARGE DATE: Nov 03, 2018 FINAL DIAGNOSIS Problems Medical Problems: (1) Confusion Status: Acute CONDITION ON DISCHARGE: Stable CODE STATUS: Code Status: Full MCFP: SNF STAY <30 DAYS: Yes POST DISCHARGE ORDERS: ACTIVITY ORDERS: Resume previous activity, Activity as tolerated WEIGHT BEARING STATUS: As tolerated DIET AFTER DISCHARGE: ADA WOUND/INCISION CARE: No wound care needed CHECKS AFTER DISCHARGE: CHECKS AFTER DISCHARGE: Check blood press - daily, Check blood sugar, ac/hs, Weigh Yourself Daily TREATMENT/EQUIPMENT ORDERS: ADAPTIVE EQUIPMENT NEEDED: Walker, Wheelchair Physical Therapy For: Evalulation/Treatment Occupational Therapy For: Evaluation/Treatment DISCHARGE MEDICATIONS: Home Meds Active Scripts Aspirin (ASPIRIN EC) 325 Mg Tablet.dr, 325 MG PO DAILY for 30 Days, TAB Prov:DEBRA ARNOLD MD 08/22/16 Reported Medications Sitagliptin Phos/Metformin Hcl (JANUMET 50-500 MG TABLET) 1 Each Tablet, 1 TAB PO BID, #60 TAB 5 Refills 08/21/16 Atorvastatin Calcium (ATORVASTATIN CALCIUM) 10 Mg Tablet, 10 MG PO HS for FOR CHOLESTEROL, #30 TAB 0 Refills 08/21/16 Amitriptyline Hcl (AMITRIPTYLINE HCL) 10 Mg Tablet, 10 MG PO DAILY 12/09/13 Ranitidine Hcl (RANITIDINE HCL) 150 Mg Capsule, 150 MG PO BID 12/09/13 DEBRA ARNOLD MD Nov 03, 2018 08:45
--- NOTE | 2018-11-03 09:42 | PDOC ---
PROGRESS NOTES Subjective Subjective no new problems Objective Objective Vital Signs Date Time Temp Pulse Resp B/P (MAP) Pulse Ox O2 Delivery O2 Flow Rate FiO2 11/03/18 07:00 98.1 85 17 150/74 (99) 96 Room Air 98.1 Intake and Output 11/03/18 07:01 Intake Total 700 ml Output Total 0 ml Balance 700 ml Intake Oral 700 ml Output Urine Total 0 ml # Voids 3 Physical Exam Abdomen: Normal bowel sounds, Soft Heart: Regular rate, Normal S1 Extremities: No clubbing General: Alert HEENT: Atraumatic Lungs: Clear to auscultation MUSCULOSKELETAL: Osteoarthritic changes both hands Neck: Supple Neuro: Normal speech Psych/Mental Status: Mental status NL Skin: No breakdown Diagnosis Problem List Problems Medical Problems: (1) Confusion Status: Acute Assessment Assessment Problems Medical Problems: (1) Confusion Status: Acute FINAL IMPRESSION: 1. Confusion yesterday, was not sure where he was resolved. 2. Risk factors for stroke high. 3. Diabetes. 4. Hypertension. 5. Hyperlipidemia. 6. Late effects of polio. PLAN: [facility]/c back to [facility] today EEG done ,report pending MRI brain neg for CVA ECHO good LVF Carotid Doppler: 1. Elevated peak systolic velocity within the right internal carotid artery, suggesting 50-69% stenosis. No additional hemodynamically significant stenosis is seen.Does not need surgery now , monitor. 2. Intimal thickening involving the common carotid arteries, mild atherosclerotic plaque involving the carotid bulbs and external carotid arteries and moderate atherosclerotic plaque involving the proximal internal carotid arteries. Plan Plan of Care Problems Medical Problems: (1) Confusion Status: Acute Comment Review of Relevant I have reviewed the following items purnima (where applicable) has been applied. Labs Laboratory Tests Test 11/02/18 11:32 11/02/18 13:15 11/02/18 14:15 11/02/18 20:28 Glucose (Fingerstick) 161 mg/dL (70-99) 185 mg/dL (70-99) Vitamin B12 Level 225 pg/mL (232-1245) Urine Opiates Screen Neg (NEG) Urine Methadone Screen Neg (NEG) Urine Barbiturates Neg (NEG) Urine Phencyclidine Screen Neg (NEG) Urine Amphetamine/Methamphetamine Neg (NEG) Urine Benzodiazepines Screen Neg (NEG) Urine Cocaine Screen Neg (NEG) Urine Cannabinoids Screen Neg (NEG) Urine Ethyl Alcohol Neg (NEG) Test 11/03/18 08:26 Glucose (Fingerstick) 147 mg/dL (70-99) Medications Current Medications Acetaminophen (Tylenol) 650 mg PRN Q8HRS PRN PO mild pain Last administered on 11/02/18at 18:02; Start 11/02/18 at 18:00 Perflutren Protein Type A Microsphe (Optison) 0.66 mg PRN 1X PRN IV SEE COMMENTS; Start 11/02/18 at 13:45; Stop 11/03/18 at 13:44 Perflutren Protein Type A Microsphe (Optison) 0.66 mg STK-MED ONCE IV ; Start at 13:32; Stop 11/02/18 at 13:34; Status DC Vitals/I & O Vital Sign - Last 24 Hours 11/02/18 11/02/18 11/02/18 11/02/18 11:00 15:00 20:00 20:36 Temp 98.3 98.4 98.6 98.3 98.4 98.6 Pulse 83 80 91 Resp 16 16 17 B/P (MAP) 192/89 (123) 175/72 (106) 162/75 (104) Pulse Ox 96 94 96 O2 Delivery Room Air Room Air Room Air Room Air 11/02/18 11/03/18 11/03/18 22:39 02:52 07:00 Temp 97.7 97.4 98.1 97.7 97.4 98.1 Pulse 82 74 85 Resp 18 16 17 B/P (MAP) 140/84 (102) 173/74 (107) 150/74 (99) Pulse Ox 94 94 96 O2 Delivery Room Air Room Air Room Air Intake and Output 11/02/18 11/02/18 11/03/18 15:01 23:01 07:01 Intake Total 700 ml Output Total 0 ml Balance 0 ml 700 ml DEBRA ARNOLD MD Nov 03, 2018 09:42
--- NOTE | 2018-11-03 11:31 | NUR ---
Discharge Note: [facility] Discharge instructions and discharge home medications reviewed with Other facility and a copy given. All questions have been answered and understanding verbalized. The following instructions and handouts were given: None- pt transferred back to [facility], report called to RN Mariposa @ [phone]. Discontinued lines and drains: L hand peripheral IV discontinued, no bleeding or bruising, catheter tip intact. Patient discharged to [facility] via wheelchair, taken out by transportation and transported back to [facility] by [facility]. Pt successfully transferred from bed to w/2 assist pivot/turn.
--- NOTE | 2018-11-03 12:07 | EEG ---
DATE OF SERVICE: 11/02/2018 EEG NUMBER: [id number] OBJECTIVE: This is a 78-year-old male patient with history of mental status changes. EEG was requested to evaluate cerebral activity and help rule out seizure activity if any. METHODS: Twenty electrodes were applied according to the international 10-20 electrode placement system. EKG monitoring, hyperventilation, intermittent photic stimulation, monopolar and bipolar montages are routinely utilized. The record was obtained on a digital system with video monitoring. FINDINGS: 1. Background: The patient was recorded in the awake and drowsy states. No actual sleep state was recorded. The overall background amplitude is 5-15 microvolts. A posterior dominant rhythm of 6-8 Hz is observed. 2. Abnormalities: No specific epileptiform discharge or electrographic seizure is seen. No diffuse slowing. 3. Activation: Hyperventilation was not performed because the patient was unable to perform the technique. Intermittent photic stimulation was performed with photic driving. IMPRESSION: This EEG falls into the abnormal category of the study for the awake and drowsy states. No actual sleep state was recorded. The posterior dominant rhythm of 6-8 Hz is slow for age. No focal, lateralizing, specific epileptiform discharge or electrographic seizure is seen. ELIA ARGUETA MD DR: ANDRESSA/ki JOB#: [id number] / [id number] H[place]
--- NOTE | 2018-11-03 16:07 | PDOC ---
PROGRESS NOTES Assessment Assessment Metabolic encephalopathy. Confusion. Cognitive impairment. Elevated SBP 192 mmHg. DM. HTN. HLD. Carotid Ac stenosis, 50-60%. Polio, old. Obesity. No evidence of acute CVA this time. RECOMMENDATIONS/PLAN: BP control. Continue ASA daily. Continue Lipitor HS. See Vascular Surgery as outpatient. FU with PCP. TSH on 10/18/18: 2.16. EEG on 11/02/18: The posterior dominant rhythm of 6-8 Hz/s that is mildly slow for age. HISTORY OF THE PRESENT ILLNESS: This is a 78-year-old male who presents with symptoms of confusion noted at the [facility]. Patient recently was placed on October 16 and had episodes of confusion last night and again this morning. Patient reportedly had gotten into an argument with his stating that she had agreed to bring him some food and when she didn't bring the food he became very irritated and yelled at her. Patient's indicates that she never said anything about bringing food. Patient reportedly again became very irate at the [facility], packed his bags and stated that he was leaving. Patient has no recollection of this. PAST MEDICAL HISTORY: Consequence of polio has been in wheelchair level, has diabetes, hypertension, hyperlipidemia, GERD. PAST SURGICAL HISTORY: Some ankle surgery. ALLERGIES: No known drug allergies. SOCIAL HISTORY: Lives with his , is in wheelchair level. Still smokes 3-4 cigarettes daily. He is ex-alcoholic, but alcohol free for 10- [address]. FAMILY HISTORY: Diabetes, heart disease. MEDICATIONS: Refer to MAR REVIEW OF SYSTEMS: Constitutional: Obesity. Head: No recent traumatic brain or head injury. Skin: No edema, or rash. Ear: No infection. Eyes: No vision loss or color blindness. Nose: No bleeding or purulent discharges. Hearing: Hearing decrease. Neck: No injury. Cardiac: HTN, HLD. Pulmonary: Smoking. GI: No GI ulcer, GI bleeding. Urinary/genital: UTI. Endocrinologic: Diabetes Mellitus, obesity. Skeletomuscular: No muscular atrophy, deformity. Neurological: see HP. Psychiatric: Denies drug use/abuse. Otherwise, not [id number] review of systems. PHYSICAL EXAMINATION: General appearance is in no acute distress. HEENT: Normocephalic and nontraumatic. Eyes, nose, ears, and throat are unremarkable. Neck is supple. No lymphadenopathy. No crepitus. Cardiovascular: S1, S2, regular rate and rhythm. Pulmonary: Clear to auscultation bilaterally. Abdomen: Bowel sounds are positive. Abdomen is soft, nontender, and nondistended. Extremities: No rash, lesions, or edema. No restriction of range of motion NEUROLOGICAL EXAMINATION: Awake. Partially oriented to time, but knew place and person. PERRL. EOMI. CN: no focal findings. Muscle tone: within normal. Muscle strength: 5 UE, 4 LE DTR: 2 UE, 1+ at knee. Plantar reflex: Neutral response bilaterally Gait: not examined in bed. Sensory exam: no abnormal findings. No cerebellar signs elicited. F-T-N test fine. Objective Objective Vital Signs Date Time Temp Pulse Resp B/P (MAP) Pulse Ox O2 Delivery O2 Flow Rate FiO2 11/03/18 08:00 Room Air 11/03/18 07:00 98.1 85 17 150/74 (99) 96 98.1 Intake and Output 11/03/18 07:01 Intake Total 700 ml Output Total 0 ml Balance 700 ml Intake Oral 700 ml Output Urine Total 0 ml # Voids 3 Vitals Signs Vitals VS - Last 72 Hours, by Label Date Time Temp Pulse Resp B/P (MAP) Pulse Ox O2 Delivery O2 Flow Rate FiO2 11/03/18 08:00 Room Air 11/03/18 07:00 98.1 85 17 150/74 (99) 96 Room Air 98.1 11/03/18 02:52 97.4 74 16 173/74 (107) 94 Room Air 97.4 11/02/18 22:39 97.7 82 18 140/84 (102) 94 Room Air 97.7 11/02/18 20:36 98.6 91 17 162/75 (104) 96 Room Air 98.6 11/02/18 20:00 Room Air 11/02/18 15:00 98.4 80 16 175/72 (106) 94 Room Air 98.4 11/02/18 11:00 98.3 83 16 192/89 (123) 96 Room Air 98.3 11/02/18 08:00 Room Air 11/02/18 07:00 98.3 82 15 161/92 (115) 96 Room Air 98.3 Laboratory Laboratory Laboratory Tests Test 11/02/18 20:28 11/03/18 08:26 11/03/18 10:59 Glucose (Fingerstick) 185 mg/dL (70-99) 147 mg/dL (70-99) 177 mg/dL (70-99) Medication Medications Current Medications Acetaminophen (Tylenol) 650 mg PRN Q8HRS PRN PO mild pain Last administered on 11/02/18at 18:02; Start 11/02/18 at 18:00; Stop 11/03/18 at 11:35; Status DC Comment Review of Relevant I have reviewed the following items purnima (where applicable) has been applied. ELIA ARGUETA MD Nov 03, 2018 16:07
--- NOTE | 2018-11-04 14:21 | PDOC ---
Provider Note Provider Note Discharge summary dictated.#[id number]. DEBRA ARNOLD MD Nov 04, 2018 14:21
--- NOTE | 2018-11-04 14:44 | DS ---
DATE OF DISCHARGE: 11/03/2018 REASON FOR ADMISSION TO THE HOSPITAL: Confusion and possible gout, stroke. CONSULTATIONS: Dr. Schmidt. PROCEDURES DONE: CT head, MRI of the brain, carotid Doppler, echocardiogram and EEG. HOSPITAL COURSE: The patient is a 78-year-old male with history of diabetes, hypertension, late effects of polio, wheelchair level. He was at [facility]. The patient's family noticed confusion. He was talking things, which does not make sense and then he was sent into the hospital. CT head was negative. MRI of the brain was negative. Had a carotid Doppler, which shows a 50%-70% right internal carotid stenosis and the patient had an EEG, was negative for seizure activity. Echocardiogram showed a good left ventricular function and the patient was [facility] back to the [facility] at the [facility]. FINAL DIAGNOSES: 1. Episodes of confusion. No definite etiology determined, negative for stroke or seizures. 2. Diabetes, hypertension, hyperlipidemia, late effects of polio. DISPOSITION: The patient was discharged back to alf. DEBRA ARNOLD MD DR: RIZWANA/ki JOB#: [id number] / [id number]
== END 2018-11-03 11:34 ==
LOC: ER 11:51 → 5 SOUTH 17:02
PROVIDERS: ADMIT Internal Medicine; ATTEND Internal Medicine
DX: R41.0 Disorientation, unspecified (principal); I10 Essential (primary) hypertension; E11.9 Type 2 diabetes mellitus without complications; E78.5 Hyperlipidemia, unspecified; B91 Sequelae of poliomyelitis; E66.9 Obesity, unspecified; G93.41 Metabolic encephalopathy; K21.9 Gastro-esophageal reflux disease without esophagitis; I65.21 Occlusion and stenosis of right carotid artery; F17.210 Nicotine dependence, cigarettes, uncomplicated; Z79.82 Long term (current) use of aspirin; Z83.3 Family history of diabetes mellitus; Z79.899 Other long term (current) drug therapy
CPT/HCPCS: 36415; 70450; 70551; 71045; 80053; 80307; 81001; 82607; 82962; 83735; 84484; 85025; 87086; 87641; 93005; 93880; 95816; 96372; 99284; C8929; G0378; J1650; J1815; Q9956; G0379

== ENCOUNTER 2018-11-15 08:17 | Inpatient (IN) | payer MEDICARE ==
[~2018-11-15] VITALS: Ht 167.6 cm; Wt 77.8 kg
[2018-11-15 09:01] LABS: BASO # 0.1 x10^3/uL (0.0-0.2); BASO % 1 % (0-3); EOS # 0.1 x10^3/uL (0.0-0.7); EOS % 2 % (0-3); HEMATOCRIT 41.4 % (39.0-53.0); HEMOGLOBIN 13.7 g/dL (13.0-17.5); LYMPH # 1.4 x10^3/uL (1.0-4.8); LYMPH % 22 % (24-48); MEAN CORPUSCULAR HEMOGLOBIN 31 pg (25-35); MEAN CORPUSCULAR HGB CONC 33 g/dL (31-37); MEAN CORPUSCULAR VOLUME 93 fL (79-100); MONO # 0.4 x10^3/uL (0.0-1.1); MONO % 6 % (0-9); NEUT # 4.3 x10^3uL (1.8-7.7); NEUT % 68 % (31-73); PLATELET COUNT 350 x10^3/uL (140-400); RED BLOOD COUNT 4.47 x10^6/uL (4.30-5.70); WHITE BLOOD COUNT 6.3 x10^3/uL (4.0-11.0)
[2018-11-15 09:14] LABS: ALBUMIN 3.7 g/dL (3.4-5.0); ALBUMIN/GLOBULIN RATIO 1.1 (1.0-1.7); CALCIUM 9.5 mg/dL (8.5-10.1); CREATININE 0.6 mg/dL (0.7-1.3); MAGNESIUM 1.9 mg/dL (1.8-2.4); TOTAL PROTEIN 7.2 g/dL (6.4-8.2)
[2018-11-15 09:16] LABS: POTASSIUM 2.5 mmol/L (3.5-5.1)
--- NOTE | 2018-11-15 10:31 | PDOC ---
Provider Note Provider Note Patient seen. History and Physical dictated. See dictation# [id number] DOROTEO BRITTON MD Nov 15, 2018 10:31
[2018-11-15] MEDS: cefTRIAXone IV Push 1 GM VIAL. IVP SCH (10:40)
[2018-11-15] MEDS ORDERED: POTASSIUM CL 20MEQ D5-0.9%NACL 1,000 ML IV ONE (11:00)
[2018-11-15] MEDS ORDERED: cefTRIAXone IV Push 1 GM VIAL. IVP SCH (11:00)
[2018-11-15] MEDS ORDERED: ACETAMINOPHEN 325 MG TABLET. PO PRN (11:00)
--- NOTE | 2018-11-15 11:16 | HP ---
ADMIT DATE: 11/15/2018 ADMITTING PHYSICIAN: Dr. Yoo. REASON FOR ADMISSION: Acute confusion and severe hypokalemia. HISTORY OF PRESENT ILLNESS: This 78-year-old male who has been admitted to this institution recently for confusion and change in mental status, and at that time, the workup was negative and who is known to have late effects of polio and diabetes mellitus, was not feeling well yesterday, and because of that, the nurse did some labs including a BMP. His potassium was noted to be only 2.2, and urinalysis showed nitrite negative, moderate leukocytes, wbc's 5-10 and many bacteria. I ordered potassium 40 mEq p.o. at the [facility] and then transferred him to the ER where the potassium was noted to be 2.5. The patient admits that he is getting more confused lately and does not know why. He states that he has had some diarrhea, but as per [facility] staff, he did not have any diarrhea, and he is not on any diuretics. Because of the severe hypokalemia, confusion as well as UTI, the patient is admitted for further evaluation and management. REVIEW OF SYSTEMS: The patient is a poor historian. Denies any chest pains, palpitations, dyspnea, dizziness, abdominal pain, nausea, vomiting. He does admit to diarrhea. He denies any leg pain, leg cramps, weakness. Other systems reviewed and are negative. PAST MEDICAL HISTORY: Episodes of confusion, etiology not clear. Diabetes mellitus, hypertension, hyperlipidemia, gastroesophageal reflux disease, has late effects of polio, has been at a wheelchair level. PAST SURGICAL HISTORY: History of ankle surgery. ALLERGIES: None known any. MEDICATIONS: The patient is on amitriptyline, aspirin, atorvastatin, Zantac and Janumet. He is currently not on metformin and is on Tradjenta and Pepcid. PERSONAL HISTORY: Smokes 3-4 cigarettes per day. History of alcoholism, but alcohol free for 10-15 years. No history of drug abuse. SOCIAL HISTORY: The patient is currently at the [facility], but previously has been living with his and is using wheelchair. FAMILY HISTORY: Positive for diabetes and heart disease. PHYSICAL EXAMINATION: GENERAL: The patient is an elderly male who is alert and oriented, but very forgetful and not in any acute distress. VITAL SIGNS: Temperature 97.9, pulse 82 per minute, respirations 18 per minute, blood pressure 184/88 mmHg. The patient is not in any acute distress, forgetful. HEENT: Pupils reacting to light. Conjunctivae pink. Sclerae white. HEENT unremarkable. NECK: Supple. JVP normal. No thyromegaly. Trachea midline. LUNGS: Clear. CARDIOVASCULAR: S1, S2 regular. ABDOMEN: Soft, distended, no guarding, no rigidity. Bowel sounds present. EXTREMITIES: No edema. CENTRAL NERVOUS SYSTEM: Alert, forgetful. Moves all extremities. LABORATORY FINDINGS: Potassium was 2.2 earlier, now it is 2.5. Sodium 144, BUN 11, creatinine 0.6, glucose 172, magnesium 1.9, albumin 3.7. WBC count 6.3, hemoglobin 13.7. IMPRESSION: 1. Severe hypokalemia. I looked at his old records, and his potassium has been previously between 3.3-3.6. He is not on any diuretics, etiology not clear. We will consult Dr. Main for nephrology evaluation and management. Replace potassium and monitor him on telemetry, hemodynamically stable. Magnesium level is 1.9. 2. Acute metabolic encephalopathy, etiology not clear. The patient recently had similar episode. 3. Acute urinary tract infection, may be contributing to metabolic encephalopathy. 4. Hypertension. 5. Diabetes mellitus type 2. 6. Gastroesophageal reflux disease. 7. Late effects of polio. PLAN: Admit to telemetry, start IV Rocephin and consult Dr. Main for nephrology evaluation and management. Replace potassium. We will put him on potassium protocol if available in telemetry. For details, please review the orders. DOROTEO BRITTON MD DR: YESSENIA/ki JOB#: [id number] / [id number]
--- NOTE | 2018-11-15 12:18 | PHYS DOC ---
Past Medical History Past Medical History: Diabetes-Type II, GERD, High Cholesterol, Hypertension Additional Past Medical Histor: Polio Past Surgical History: Other Additional Past Surgical Histo: L ankle Alcohol Use: Sober Drug Use: None Adult General Chief Complaint Chief Complaint: ABNORMAL LABS [facility] Patient is a 78-year-old male who presents with report of low potassium of 2.2. He states that he was told to come to the emergency room to be admitted. He denies any specific complaints, stating that he has no chest pain or shortness of breath. He also denies any muscle cramps, abdominal pain, nausea, vomiting or diarrhea. Review of Systems Review of Systems Constitutional: Denies fever or chills [] Respiratory: Denies cough or shortness of breath [] Cardiovascular: No additional information not addressed in HPI [] GI: Denies abdominal pain, nausea, vomiting or diarrhea [] Musculoskeletal: Denies back pain or joint pain [] Integument: Denies rash or skin lesions [] All other systems were reviewed and found to be within normal limits, except as documented in this note. Allergies Allergies Allergies Coded Allergies Type Severity Reaction Last Updated Verified No Known Drug Allergies 03/22/15 No Physical Exam Physical Exam Constitutional: Well developed, well nourished, no acute distress, non-toxic appearance. [] HENT: Normocephalic, atraumatic, bilateral external ears normal, oropharynx moist, no oral exudates, nose normal. [] Eyes: PERRLA, EOMI, conjunctiva normal, no discharge. [] Neck: Normal range of motion, no tenderness, supple, no stridor. [] Cardiovascular: Regular rate and rhythm[] Lungs & Thorax: Bilateral breath sounds clear to auscultation [] Abdomen: Bowel sounds normal, soft, no tenderness. [] Skin: Warm, dry, no erythema, no rash. [] Extremities: No tenderness, no cyanosis, no clubbing, ROM intact. [] Neurologic: Alert and oriented X 3, no focal deficits noted. [] Current Patient Data Vital Signs Vital Signs Date Time Temp Pulse Resp B/P (MAP) Pulse Ox O2 Delivery O2 Flow Rate FiO2 11/15/18 08:27 97.9 82 18 184/88 (120) 98 Room Air 97.9 Lab Values Laboratory Tests Test 11/15/18 08:55 White Blood Count 6.3 x10^3/uL (4.0-11.0) Red Blood Count 4.47 x10^6/uL (4.30-5.70) Hemoglobin 13.7 g/dL (13.0-17.5) Hematocrit 41.4 % (39.0-53.0) Mean Corpuscular Volume 93 fL (79-100) Mean Corpuscular Hemoglobin 31 pg (25-35) Mean Corpuscular Hemoglobin Concent 33 g/dL (31-37) Red Cell Distribution Width 15.0 % (11.5-14.5) H Platelet Count 350 x10^3/uL (140-400) Neutrophils (%) (Auto) 68 % (31-73) Lymphocytes (%) (Auto) 22 % (24-48) L Monocytes (%) (Auto) 6 % (0-9) Eosinophils (%) (Auto) 2 % (0-3) Basophils (%) (Auto) 1 % (0-3) Neutrophils # (Auto) 4.3 x10^3uL (1.8-7.7) Lymphocytes # (Auto) 1.4 x10^3/uL (1.0-4.8) Monocytes # (Auto) 0.4 x10^3/uL (0.0-1.1) Eosinophils # (Auto) 0.1 x10^3/uL (0.0-0.7) Basophils # (Auto) 0.1 x10^3/uL (0.0-0.2) Sodium Level 144 mmol/L (136-145) Potassium Level 2.5 mmol/L (3.5-5.1) *L Chloride Level 106 mmol/L (98-107) Carbon Dioxide Level 25 mmol/L (21-32) Anion Gap 13 (6-14) Blood Urea Nitrogen 11 mg/dL (8-26) Creatinine 0.6 mg/dL (0.7-1.3) L Estimated GFR (Cockcroft-Gault) 131.0 BUN/Creatinine Ratio 18 (6-20) Glucose Level 172 mg/dL (70-99) H Calcium Level 9.5 mg/dL (8.5-10.1) Magnesium Level 1.9 mg/dL (1.8-2.4) Total Bilirubin 1.0 mg/dL (0.2-1.0) Aspartate Amino Transferase (AST) 26 U/L (15-37) Alanine Aminotransferase (ALT) 46 U/L (16-63) Alkaline Phosphatase 70 U/L (46-116) Total Protein 7.2 g/dL (6.4-8.2) Albumin 3.7 g/dL (3.4-5.0) Albumin/Globulin Ratio 1.1 (1.0-1.7) Laboratory Tests 11/15/18 08:55 Laboratory Tests 11/15/18 08:55 EKG EKG [] Radiology/Procedures Radiology/Procedures [] Course & Med Decision Making Course & Med Decision Making Pertinent Labs and Imaging studies reviewed. (See chart for details) [] Dragon Disclaimer Dragon Disclaimer This electronic medical record was generated, in whole or in part, using a voice recognition dictation system. Departure Departure Impression: Primary Impression: Hypokalemia Disposition: ADMITTED INPATIENT Admitting Physician: Miguel Daniel Condition: GOOD Referrals: DEBRA ARNOLD MD (PCP) JESSY MALDONADO Jr., DO Nov 15, 2018 12:18
[2018-11-15 12:21] LABS: BILIRUBIN,URINE NEGATIVE (NEG); CLARITY,URINE CLEAR; COLOR,URINE YELLOW; NITRITE,URINE NEGATIVE (NEG); PROTEIN,URINE NEGATIVE (NEG-TRACE)
[2018-11-15 12:27] VITALS: BP 180/84
[2018-11-15 12:28] LABS: AMORPHOUS SEDIMENT,UR PRESENT /HPF; BACTERIA,URINE MANY /HPF (0-FEW); SQUAMOUS EPITHELIAL CELL,UR OCC /LPF
[2018-11-15] MEDS: metFORMIN 500 MG TABLET PO SCH (12:45)
[2018-11-15] MEDS: POTASSIUM CHLORIDE 20 MEQ TABLET.ER. PO SCH ×2 (12:45→16:48)
[2018-11-15] MEDS: LINAGLIPTIN 5 MG TABLET PO SCH (12:46)
[2018-11-15] MEDS: ASPIRIN ENTERIC COATED 325 MG TABLET.DR. PO SCH (12:46)
[2018-11-15] MEDS: AMITRIPTYLINE HCL 10 MG TABLET. PO SCH (12:46)
[2018-11-15] MEDS: FAMOTIDINE 20 MG TABLET. PO SCH ×2 (12:46→21:23)
--- NOTE | 2018-11-15 14:41 | PDOC2 ---
CONSULT Date of Consult Date of Consult DATE: 11/15/18 TIME: 14:26 Reason for Consult Reason for Consult: Hypokalemia Source Source: Chart review History of Present Illness Reason for Visit: Pt is 78-year-old male who has been admitted to this institution recently for confusion and change in mental status, and at that time, the workup was negative and who is known to have late effects of polio and diabetes mellitus He was not feeling well and because of that labs done including a BMP. His potassium was noted to be 2.2, Potassium 40 mEq p.o. replaced at [place] by PCP and Pt then transferred to the ER with potassium 2.5. He is not on diuretics Pt admits he is getting more confused lately . His BP high, he reports Mostly 130-140's systolic Denies LE edema, No urinary complaints Past Medical History Cardiovascular: HTN, Syncope, Hyperlipidemia Pulmonary: Other CENTRAL NERVOUS SYSTEM: Other GI: Diverticulosis, GERD, Hemorrhoids Hepatobiliary: Cirrhosis Psych: Addictions Musculoskeletal: low back pain, Osteoarthritis, Other Infectious disease: Other Endocrine: Diabetes Past Surgical History Past Surgical History: Other Family History Family History: Coronary Artery Disease, Diabetes Social History ALCOHOL: other Drugs: None Lives: with Family Current Medications Current Medications Current Medications Amitriptyline HCl (Elavil) 10 mg DAILY PO Last administered on 11/15/18at 12:46 ; Start 11/15/18 at 12:00 Aspirin (Ecotrin) 325 mg DAILY PO Last administered on 11/15/18at 12:46; Start 11/15/18 at 11:00 Atorvastatin Calcium (Lipitor) 10 mg HS PO ; Start 11/15/18 at 21:00 Famotidine (Pepcid) 20 mg BID PO Last administered on 11/15/18at 12:46; Start at 11:00 Linagliptin (Tradjenta) 5 mg DAILY PO Last administered on 11/15/18at 12:46; Start 11/15/18 at 12:00 Ceftriaxone Sodium (Rocephin) 1 gm Q24H IVP Last administered on 11/15/18at 10: 40; Start 11/15/18 at 11:00 Potassium Chloride/Dextrose/ Sod Cl 1,000 ml @ 250 mls/hr 1X ONCE IV Last administered on 11/15/18at 10:40; Start 11/15/18 at 11:00; Stop 11/15/18 at 14:59 Metformin HCl (Glucophage) 500 mg DAILY PO Last administered on 11/15/18at 12:45 ; Start 11/15/18 at 12:00 Ceftriaxone Sodium (Rocephin) 1 gm Q24H IVP ; Start 11/15/18 at 11:00; Status UNV Enoxaparin Sodium (Lovenox 40mg Syringe) 40 mg Q24H SQ ; Start 11/15/18 at 16:00 Acetaminophen (Tylenol) 650 mg PRN Q6HRS PRN PO MILD PAIN / TEMP; Start at 11:00 Potassium Chloride (Klor-Con) 40 meq TIDWMEALS PO Last administered on at 12:45; Start 11/15/18 at 12:00; Stop 11/22/18 at 11:59 Active Scripts Active Reported Janumet 50-500 Mg Tablet (Sitagliptin Phos/Metformin Hcl) 1 Each Tablet 1 Tab PO BID Atorvastatin Calcium 10 Mg Tablet 10 Mg PO HS Amitriptyline Hcl 10 Mg Tablet 10 Mg PO DAILY Ranitidine Hcl 150 Mg Capsule 150 Mg PO BID Allergies Allergies: Coded Allergies: No Known Drug Allergies (Unverified , 03/22/15) ROS Review of System As per HPI Physical Exam Physical Exam GENERAL: NAD HEENT: OM moist NECK: Supple. LUNGS: Clear, Non labored CARDIOVASCULAR: S1, S2 regular. ABDOMEN: Soft, distended, obese EXTREMITIES: No edema. CENTRAL NERVOUS SYSTEM: forgetful. Moves all extremities NO Booth Skin No Rash Vital Signs Vital Signs Date Time Temp Pulse Resp B/P (MAP) Pulse Ox O2 Delivery O2 Flow Rate FiO2 11/15/18 12:27 79 18 180/84 (116) 96 Room Air 11/15/18 08:27 97.9 97.9 Assessment & Plan HTN- BP High Hypokalemia , Adrenals Probably Normal on CT in 2017 Aldactone as below with close monitoring Severe hypokalemia.previously K between 3.3-3.6. Not on any diuretics or Health supplements or Licorice Replace as indicated Ct scan 2017 - No mention of any Adrenal adenoma pr Hyperplasia HTN sive Recommend Aldactone 25 mg QD with close monitoring of BP,renal function and K Acute metabolic encephalopathy, etiology not clear- Defer to PCP Acute urinary tract infection- On Abx Labs Labs Laboratory Tests Test 11/15/18 08:55 11/15/18 12:11 11/15/18 12:31 White Blood Count 6.3 x10^3/uL (4.0-11.0) Red Blood Count 4.47 x10^6/uL (4.30-5.70) Hemoglobin 13.7 g/dL (13.0-17.5) Hematocrit 41.4 % (39.0-53.0) Mean Corpuscular Volume 93 fL (79-100) Mean Corpuscular Hemoglobin 31 pg (25-35) Mean Corpuscular Hemoglobin Concent 33 g/dL (31-37) Red Cell Distribution Width 15.0 % (11.5-14.5) Platelet Count 350 x10^3/uL (140-400) Neutrophils (%) (Auto) 68 % (31-73) Lymphocytes (%) (Auto) 22 % (24-48) Monocytes (%) (Auto) 6 % (0-9) Eosinophils (%) (Auto) 2 % (0-3) Basophils (%) (Auto) 1 % (0-3) Neutrophils # (Auto) 4.3 x10^3uL (1.8-7.7) Lymphocytes # (Auto) 1.4 x10^3/uL (1.0-4.8) Monocytes # (Auto) 0.4 x10^3/uL (0.0-1.1) Eosinophils # (Auto) 0.1 x10^3/uL (0.0-0.7) Basophils # (Auto) 0.1 x10^3/uL (0.0-0.2) Sodium Level 144 mmol/L (136-145) Potassium Level 2.5 mmol/L (3.5-5.1) Chloride Level 106 mmol/L (98-107) Carbon Dioxide Level 25 mmol/L (21-32) Anion Gap 13 (6-14) Blood Urea Nitrogen 11 mg/dL (8-26) Creatinine 0.6 mg/dL (0.7-1.3) Estimated GFR (Cockcroft-Gault) 131.0 BUN/Creatinine Ratio 18 (6-20) Glucose Level 172 mg/dL (70-99) Calcium Level 9.5 mg/dL (8.5-10.1) Magnesium Level 1.9 mg/dL (1.8-2.4) Total Bilirubin 1.0 mg/dL (0.2-1.0) Aspartate Amino Transf (AST/SGOT) 26 U/L (15-37) Alanine Aminotransferase (ALT/SGPT) 46 U/L (16-63) Alkaline Phosphatase 70 U/L (46-116) Total Protein 7.2 g/dL (6.4-8.2) Albumin 3.7 g/dL (3.4-5.0) Albumin/Globulin Ratio 1.1 (1.0-1.7) Urine Collection Type Unknown Urine Color Yellow Urine Clarity Clear Urine pH 6.0 Urine Specific Dickey 1.015 Urine Protein Negative mg/dL (NEG-TRACE) Urine Glucose (UA) Negative mg/dL (NEG) Urine Ketones (Stick) Negative mg/dL (NEG) Urine Blood Negative (NEG) Urine Nitrite Negative (NEG) Urine Bilirubin Negative (NEG) Urine Urobilinogen Dipstick 1.0 mg/dL (0.2 mg/dL) Urine Leukocyte Esterase Moderate (NEG) Urine RBC 1-2 /HPF (0-2) Urine WBC 11-20 /HPF (0-4) Urine Squamous Epithelial Cells Occ /LPF Urine Amorphous Sediment Present /HPF Urine Bacteria Many /HPF (0-FEW) Urine Mucus Slight /LPF Glucose (Fingerstick) 175 mg/dL (70-99) Laboratory Tests Test 11/15/18 08:55 11/15/18 12:11 11/15/18 12:31 White Blood Count 6.3 x10^3/uL (4.0-11.0) Red Blood Count 4.47 x10^6/uL (4.30-5.70) Hemoglobin 13.7 g/dL (13.0-17.5) Hematocrit 41.4 % (39.0-53.0) Mean Corpuscular Volume 93 fL (79-100) Mean Corpuscular Hemoglobin 31 pg (25-35) Mean Corpuscular Hemoglobin Concent 33 g/dL (31-37) Red Cell Distribution Width 15.0 % (11.5-14.5) Platelet Count 350 x10^3/uL (140-400) Neutrophils (%) (Auto) 68 % (31-73) Lymphocytes (%) (Auto) 22 % (24-48) Monocytes (%) (Auto) 6 % (0-9) Eosinophils (%) (Auto) 2 % (0-3) Basophils (%) (Auto) 1 % (0-3) Neutrophils # (Auto) 4.3 x10^3uL (1.8-7.7) Lymphocytes # (Auto) 1.4 x10^3/uL (1.0-4.8) Monocytes # (Auto) 0.4 x10^3/uL (0.0-1.1) Eosinophils # (Auto) 0.1 x10^3/uL (0.0-0.7) Basophils # (Auto) 0.1 x10^3/uL (0.0-0.2) Sodium Level 144 mmol/L (136-145) Potassium Level 2.5 mmol/L (3.5-5.1) Chloride Level 106 mmol/L (98-107) Carbon Dioxide Level 25 mmol/L (21-32) Anion Gap 13 (6-14) Blood Urea Nitrogen 11 mg/dL (8-26) Creatinine 0.6 mg/dL (0.7-1.3) Estimated GFR (Cockcroft-Gault) 131.0 BUN/Creatinine Ratio 18 (6-20) Glucose Level 172 mg/dL (70-99) Calcium Level 9.5 mg/dL (8.5-10.1) Magnesium Level 1.9 mg/dL (1.8-2.4) Total Bilirubin 1.0 mg/dL (0.2-1.0) Aspartate Amino Transf (AST/SGOT) 26 U/L (15-37) Alanine Aminotransferase (ALT/SGPT) 46 U/L (16-63) Alkaline Phosphatase 70 U/L (46-116) Total Protein 7.2 g/dL (6.4-8.2) Albumin 3.7 g/dL (3.4-5.0) Albumin/Globulin Ratio 1.1 (1.0-1.7) Urine Collection Type Unknown Urine Color Yellow Urine Clarity Clear Urine pH 6.0 Urine Specific Dickey 1.015 Urine Protein Negative mg/dL (NEG-TRACE) Urine Glucose (UA) Negative mg/dL (NEG) Urine Ketones (Stick) Negative mg/dL (NEG) Urine Blood Negative (NEG) Urine Nitrite Negative (NEG) Urine Bilirubin Negative (NEG) Urine Urobilinogen Dipstick 1.0 mg/dL (0.2 mg/dL) Urine Leukocyte Esterase Moderate (NEG) Urine RBC 1-2 /HPF (0-2) Urine WBC 11-20 /HPF (0-4) Urine Squamous Epithelial Cells Occ /LPF Urine Amorphous Sediment Present /HPF Urine Bacteria Many /HPF (0-FEW) Urine Mucus Slight /LPF Glucose (Fingerstick) 175 mg/dL (70-99) Review All relevant outside records, renal labs, imaging studies, telemetry/EKG's were reviewed. CHAPARRO RAMIREZ MD Nov 15, 2018 14:41
[2018-11-15 15:00] VITALS: BP 221/107
[2018-11-15] MEDS: amLODIPine BESYLATE 5 MG TABLET PO SCH (15:13)
[2018-11-15] MEDS: ENOXAPARIN 40 MG/0.4 ML SYRINGE. SQ SCH (15:15)
[2018-11-15] MEDS: cloNIDine HCL 0.1 MG TABLET PO PRN (16:48)
--- NOTE | 2018-11-15 17:56 | NUR ---
The patient, RAVI RICKS, 78 y/o, M admitted by DOROTEO BRITTON MD, was given written information regarding hospital policies, unit procedures and contact persons. Valuables were checked and left with patient.
--- NOTE | 2018-11-15 18:22 | NUR ---
Patient had B/P of 221/104, HR 109 reported by [employer]. This real estate inspector obtained manual values and were B/P 189/104 and HR 104. MD made aware and ordered amlodipine 5 mg po daily and clonidine 0.1 mg PRn for SBP> 160.
[2018-11-15 19:00] VITALS: BP 160/75
[2018-11-15] MEDS: ATORVASTATIN CALCIUM 10 MG TABLET. PO SCH (21:23)
[2018-11-15 23:08] VITALS: BP 157/87
[2018-11-16 03:00] VITALS: BP 147/84
[2018-11-16 06:08] LABS: BASO # 0.1 x10^3/uL (0.0-0.2); BASO % 1 % (0-3); EOS # 0.2 x10^3/uL (0.0-0.7); EOS % 3 % (0-3); HEMATOCRIT 39.9 % (39.0-53.0); HEMOGLOBIN 13.4 g/dL (13.0-17.5); LYMPH # 1.5 x10^3/uL (1.0-4.8); LYMPH % 22 % (24-48); MEAN CORPUSCULAR HEMOGLOBIN 31 pg (25-35); MEAN CORPUSCULAR HGB CONC 34 g/dL (31-37); MEAN CORPUSCULAR VOLUME 93 fL (79-100); MONO # 0.4 x10^3/uL (0.0-1.1); MONO % 7 % (0-9); NEUT # 4.5 x10^3uL (1.8-7.7); NEUT % 67 % (31-73); PLATELET COUNT 323 x10^3/uL (140-400); RED CELL DISTRIBUTION WIDTH 14.8 % (11.5-14.5); WHITE BLOOD COUNT 6.7 x10^3/uL (4.0-11.0)
[2018-11-16 06:35] LABS: CREATININE 0.5 mg/dL (0.7-1.3); GFR 161.7; POTASSIUM 3.3 mmol/L (3.5-5.1)
[2018-11-16 07:00] VITALS: BP 182/93
[2018-11-16] MEDS: LINAGLIPTIN 5 MG TABLET PO SCH (09:45)
[2018-11-16] MEDS: POTASSIUM CHLORIDE 20 MEQ TABLET.ER. PO SCH ×3 (09:45→18:22)
[2018-11-16] MEDS: ASPIRIN ENTERIC COATED 325 MG TABLET.DR. PO SCH (09:45)
[2018-11-16] MEDS: FAMOTIDINE 20 MG TABLET. PO SCH ×2 (09:45→21:04)
[2018-11-16] MEDS: AMITRIPTYLINE HCL 10 MG TABLET. PO SCH (09:45)
[2018-11-16] MEDS: metFORMIN 500 MG TABLET PO SCH (09:45)
[2018-11-16] MEDS: amLODIPine BESYLATE 5 MG TABLET PO SCH (09:46)
--- NOTE | 2018-11-16 10:11 | PDOC ---
PROGRESS NOTES Subjective Subjective confused and hallucinating today ,looking for his brother and father Objective Objective Vital Signs Date Time Temp Pulse Resp B/P (MAP) Pulse Ox O2 Delivery O2 Flow Rate FiO2 11/16/18 09:46 89 182/93 11/16/18 07:00 98.4 18 97 Room Air 98.4 Intake and Output 11/16/18 07:01 Intake Total 500 ml Balance 500 ml Intake Oral 500 ml # Voids 3 Physical Exam Abdomen: Other (soft and distendedchronically) Heart: Regular rate, Normal S1, Normal S2 HEENT: Atraumatic Lungs: Clear to auscultation MUSCULOSKELETAL: Osteoarthritic changes both hands Neck: Supple Neuro: Normal speech Psych/Mental Status: Other (agitated and confused ) Skin: No breakdown Assessment Assessment IMPRESSION: 1. Severe hypokalemia. 2. Acute metabolic encephalopathy, due to UTI 3. Acute urinary tract infection, may be contributing to metabolic encephalopathy.IV Rocephin , waiting for cultures 4. Hypertension. 5. Diabetes mellitus type 2. 6. Gastroesophageal reflux disease. 7. Late effects of polio. PLAN: pot 3.3.on Potassium replacement spoke with RN iv Rocephin. hopefully confusion will resolve in dontrell. Comment Review of Relevant I have reviewed the following items purnima (where applicable) has been applied. Labs Laboratory Tests Test 11/15/18 12:11 11/15/18 12:31 11/15/18 15:00 11/15/18 16:27 Urine Collection Type Unknown Urine Color Yellow Urine Clarity Clear Urine pH 6.0 Urine Specific [place] 1.015 Urine Protein Negative mg/dL (NEG-TRACE) Urine Glucose (UA) Negative mg/dL (NEG) Urine Ketones (Stick) Negative mg/dL (NEG) Urine Blood Negative (NEG) Urine Nitrite Negative (NEG) Urine Bilirubin Negative (NEG) Urine Urobilinogen Dipstick 1.0 mg/dL (0.2 mg/dL) Urine Leukocyte Esterase Moderate (NEG) Urine RBC 1-2 /HPF (0-2) Urine WBC 11-20 /HPF (0-4) Urine Squamous Epithelial Cells Occ /LPF Urine Amorphous Sediment Present /HPF Urine Bacteria Many /HPF (0-FEW) Urine Mucus Slight /LPF Glucose (Fingerstick) 175 mg/dL (70-99) 124 mg/dL (70-99) Potassium Level 3.2 mmol/L (3.5-5.1) Test 11/15/18 20:33 11/16/18 05:33 11/16/18 05:35 11/16/18 07:53 Glucose (Fingerstick) 137 mg/dL (70-99) 117 mg/dL (70-99) White Blood Count 6.7 x10^3/uL (4.0-11.0) Red Blood Count 4.30 x10^6/uL (4.30-5.70) Hemoglobin 13.4 g/dL (13.0-17.5) Hematocrit 39.9 % (39.0-53.0) Mean Corpuscular Volume 93 fL (79-100) Mean Corpuscular Hemoglobin 31 pg (25-35) Mean Corpuscular Hemoglobin Concent 34 g/dL (31-37) Red Cell Distribution Width 14.8 % (11.5-14.5) Platelet Count 323 x10^3/uL (140-400) Neutrophils (%) (Auto) 67 % (31-73) Lymphocytes (%) (Auto) 22 % (24-48) Monocytes (%) (Auto) 7 % (0-9) Eosinophils (%) (Auto) 3 % (0-3) Basophils (%) (Auto) 1 % (0-3) Neutrophils # (Auto) 4.5 x10^3uL (1.8-7.7) Lymphocytes # (Auto) 1.5 x10^3/uL (1.0-4.8) Monocytes # (Auto) 0.4 x10^3/uL (0.0-1.1) Eosinophils # (Auto) 0.2 x10^3/uL (0.0-0.7) Basophils # (Auto) 0.1 x10^3/uL (0.0-0.2) Sodium Level 145 mmol/L (136-145) Potassium Level 3.3 mmol/L (3.5-5.1) Chloride Level 110 mmol/L (98-107) Carbon Dioxide Level 22 mmol/L (21-32) Anion Gap 13 (6-14) Blood Urea Nitrogen 8 mg/dL (8-26) Creatinine 0.5 mg/dL (0.7-1.3) Estimated GFR (Cockcroft-Gault) 161.7 Glucose Level 138 mg/dL (70-99) Calcium Level 9.0 mg/dL (8.5-10.1) Medications Current Medications Acetaminophen (Tylenol) 650 mg PRN Q6HRS PRN PO MILD PAIN / TEMP; Start at 11:00 Amitriptyline HCl (Elavil) 10 mg DAILY PO Last administered on 11/16/18 09:45 ; Start 11/15/18 at 12:00 Amlodipine Besylate (Norvasc) 5 mg DAILY PO Last administered on 11/16/18 09: 46; Start 11/15/18 at 15:30 Aspirin (Ecotrin) 325 mg DAILY PO Last administered on 11/16/18 09:45; Start 11/15/18 at 11:00 Atorvastatin Calcium (Lipitor) 10 mg HS PO Last administered on 11/15/18 21:23 ; Start 11/15/18 at 21:00 Ceftriaxone Sodium (Rocephin) 1 gm Q24H IVP Last administered on 11/15/18 10: 40; Start 11/15/18 at 11:00 Ceftriaxone Sodium (Rocephin) 1 gm Q24H IVP ; Start 11/15/18 at 11:00; Status UNV Clonidine HCl (Catapres) 0.1 mg PRN Q8HRS PRN PO ELEVATED BP, SEE COMMENTS Last administered on 11/15/18at 16:48; Start 11/15/18 at 15:15 Enoxaparin Sodium (Lovenox 40mg Syringe) 40 mg Q24H SQ Last administered on 15:15; Start 11/15/18 at 16:00 Famotidine (Pepcid) 20 mg BID PO Last administered on 11/16/18 09:45; Start at 11:00 Linagliptin (Tradjenta) 5 mg DAILY PO Last administered on 11/16/18 09:45; Start 11/15/18 at 12:00 Metformin HCl (Glucophage) 500 mg DAILY PO Last administered on 11/16/18 09:45 ; Start 11/15/18 at 12:00 Potassium Chloride/Dextrose/ Sod Cl 1,000 ml @ 250 mls/hr 1X ONCE IV Last administered on 11/15/18 10:40; Start 11/15/18 at 11:00; Stop 11/15/18 at 14:59 ; Status DC Potassium Chloride (Klor-Con) 40 meq TIDWMEALS PO Last administered on at 09:45; Start 11/15/18 at 12:00; Stop 11/22/18 at 11:59 Vitals/I & O Vital Sign - Last 24 Hours 11/15/18 11/15/18 11/15/18 11/15/18 12:27 14:00 15:00 15:13 Temp 97.8 97.8 Pulse 79 109 106 Resp 18 18 B/P (MAP) 180/84 (116) 221/107 (145) 189/104 Pulse Ox 96 96 O2 Delivery Room Air Room Air Room Air 11/15/18 11/15/18 11/15/18 11/15/18 16:48 19:00 20:00 23:08 Temp 98.5 97.5 98.5 97.5 Pulse 93 88 Resp 20 20 B/P (MAP) 178/90 160/75 (103) 157/87 (110) Pulse Ox 92 96 O2 Delivery Room Air Room Air Room Air 11/16/18 11/16/18 11/16/18 03:00 07:00 09:46 Temp 97.8 98.4 97.8 98.4 Pulse 83 89 89 Resp 17 18 B/P (MAP) 147/84 (105) 182/93 (122) 182/93 Pulse Ox 96 97 O2 Delivery Room Air Room Air Intake and Output 11/15/18 11/15/18 11/16/18 15:01 23:01 07:01 Intake Total 200 ml 300 ml Balance 200 ml 300 ml DEBRA ARNOLD MD Nov 16, 2018 10:11
[2018-11-16 11:00] VITALS: BP 184/83
--- NOTE | 2018-11-16 11:57 | NUR ---
Pt's BP 184/83, HR 99. Pt has PRN clonidine for systolic over 160, administered at this time.
[2018-11-16] MEDS: cloNIDine HCL 0.1 MG TABLET PO PRN (12:01)
[2018-11-16] MEDS: cefTRIAXone IV Push 1 GM VIAL. IVP SCH (12:02)
--- NOTE | 2018-11-16 13:40 | NUR ---
Pt's brief saturated,PVR checked with bladder scanner. PVR = 97ml
[2018-11-16 15:00] VITALS: BP 139/77
[2018-11-16] MEDS: ENOXAPARIN 40 MG/0.4 ML SYRINGE. SQ SCH (15:05)
--- NOTE | 2018-11-16 15:26 | NUR ---
ELIER following pt for anticipated dc needs. Chart reviewed. ELIER confirmed with Yeny at pt is [facility] resident and plan of return upon dc. KAT Puga will order PT/OT evaluation to continue to assess skilled needs. ELIER will continue to follow. Addendum: 11/16/18 at 1617 by CHERRY THAPA Pt and pt's also confirmed dc plan to [facility] once medically stable.
[2018-11-16] MEDS ORDERED: POTASSIUM CHLORIDE 20 MEQ TABLET.ER. PO ONE (15:45)
--- NOTE | 2018-11-16 15:45 | PDOC ---
Renal-Progress Notes Subjective Notes Notes NONE History of Present Illness Hx of present illness CONFUSED Vitals Vitals Vital Signs Date Time Temp Pulse Resp B/P (MAP) Pulse Ox O2 Delivery O2 Flow Rate FiO2 11/16/18 15:00 98.6 89 18 139/77 (97) 96 Room Air 98.6 Weight Weight [ ] I.O. Intake and Output Intake and Output 11/16/18 07:01 Intake Total 500 ml Balance 500 ml Intake Oral 500 ml # Voids 3 Labs Labs Laboratory Tests Test 11/15/18 16:27 11/15/18 20:33 11/15/18 22:53 11/16/18 05:33 Glucose (Fingerstick) 124 mg/dL (70-99) 137 mg/dL (70-99) Nasal Screen MRSA (PCR) Negative (Negative) White Blood Count 6.7 x10^3/uL (4.0-11.0) Red Blood Count 4.30 x10^6/uL (4.30-5.70) Hemoglobin 13.4 g/dL (13.0-17.5) Hematocrit 39.9 % (39.0-53.0) Mean Corpuscular Volume 93 fL (79-100) Mean Corpuscular Hemoglobin 31 pg (25-35) Mean Corpuscular Hemoglobin Concent 34 g/dL (31-37) Red Cell Distribution Width 14.8 % (11.5-14.5) Platelet Count 323 x10^3/uL (140-400) Neutrophils (%) (Auto) 67 % (31-73) Lymphocytes (%) (Auto) 22 % (24-48) Monocytes (%) (Auto) 7 % (0-9) Eosinophils (%) (Auto) 3 % (0-3) Basophils (%) (Auto) 1 % (0-3) Neutrophils # (Auto) 4.5 x10^3uL (1.8-7.7) Lymphocytes # (Auto) 1.5 x10^3/uL (1.0-4.8) Monocytes # (Auto) 0.4 x10^3/uL (0.0-1.1) Eosinophils # (Auto) 0.2 x10^3/uL (0.0-0.7) Basophils # (Auto) 0.1 x10^3/uL (0.0-0.2) Test 11/16/18 05:35 11/16/18 07:53 11/16/18 11:32 Sodium Level 145 mmol/L (136-145) Potassium Level 3.3 mmol/L (3.5-5.1) Chloride Level 110 mmol/L (98-107) Carbon Dioxide Level 22 mmol/L (21-32) Anion Gap 13 (6-14) Blood Urea Nitrogen 8 mg/dL (8-26) Creatinine 0.5 mg/dL (0.7-1.3) Estimated GFR (Cockcroft-Gault) 161.7 Glucose Level 138 mg/dL (70-99) Calcium Level 9.0 mg/dL (8.5-10.1) Glucose (Fingerstick) 117 mg/dL (70-99) 149 mg/dL (70-99) Review of Systems Constitutional: yes: other (CONFUSED) Physical Exam General Appearance: no apparent distress Respiratory: decreased breath sounds Heart: S1S2 Abdomen: soft, bowel sounds present Genitourinary: bladder flat Extremities: pulses present Musculoskeletal: low back pain, Osteoarthritis, Other Assessment Assessment IMP HYPOKALEMIA HTN DM II UTI MET ENCEPHALOPATHY PLAN ANTIBIOTICS START JAMARCUS-I REPLACE K IF HTN DIFFICULT TO CONTROL THEN WILL NEED TO EVALUATE ADRENALS AND CHECK SEGUNDO/ PRA RATIO WILL FOLLOW HEIDY FAULKNER MD Nov 16, 2018 15:45
[2018-11-16] MEDS: LISINOPRIL 5 MG TABLET. PO SCH (16:11)
[2018-11-16 19:30] VITALS: BP 147/70
[2018-11-16] MEDS: LACTOBACILLUS RHAMNOSUS GG 1 CAPSULE. PO SCH (21:04)
[2018-11-16] MEDS: ATORVASTATIN CALCIUM 10 MG TABLET. PO SCH (21:04)
[2018-11-16 23:00] VITALS: BP 148/69
[2018-11-17 03:00] VITALS: BP 131/71
[2018-11-17 07:00] VITALS: BP 155/91
[2018-11-17] MEDS: POTASSIUM CHLORIDE 20 MEQ TABLET.ER. PO SCH ×3 (08:30→16:13)
[2018-11-17] MEDS: LACTOBACILLUS RHAMNOSUS GG 1 CAPSULE. PO SCH ×2 (08:31→20:58)
[2018-11-17] MEDS: ASPIRIN ENTERIC COATED 325 MG TABLET.DR. PO SCH (08:31)
[2018-11-17] MEDS: AMITRIPTYLINE HCL 10 MG TABLET. PO SCH (08:32)
[2018-11-17] MEDS: metFORMIN 500 MG TABLET PO SCH (08:32)
[2018-11-17] MEDS: amLODIPine BESYLATE 5 MG TABLET PO SCH (08:33)
[2018-11-17] MEDS: FAMOTIDINE 20 MG TABLET. PO SCH ×2 (08:34→20:58)
[2018-11-17] MEDS: LINAGLIPTIN 5 MG TABLET PO SCH (08:34)
[2018-11-17] MEDS: LISINOPRIL 5 MG TABLET. PO SCH (08:35)
[2018-11-17] MEDS ORDERED: BISACODYL 10 MG SUPP.RECT. PR PRN ×2 (09:45→10:00)
--- NOTE | 2018-11-17 09:51 | PDOC ---
PROGRESS NOTES Subjective Subjective isaac confused today Objective Objective Vital Signs Date Time Temp Pulse Resp B/P (MAP) Pulse Ox O2 Delivery O2 Flow Rate FiO2 11/17/18 08:35 94 155/91 11/17/18 07:00 98.8 18 97 Room Air 98.8 Intake and Output 11/17/18 07:00 Intake Total 1020 ml Balance 1020 ml Intake Oral 1020 ml # Voids 4 Physical Exam Abdomen: Other (soft and distended chronically) Heart: Regular rate, Normal S1, Normal S2 HEENT: Atraumatic Lungs: Clear to auscultation MUSCULOSKELETAL: Osteoarthritic changes both hands Neck: Supple Neuro: Normal speech Psych/Mental Status: Other (agitated and confused ) Skin: No breakdown Assessment Assessment IMPRESSION:Abd distention, no BM for 3 days 1. Severe hypokalemia. 2. Acute metabolic encephalopathy, due to UTI 3. Acute urinary tract infection, may be contributing to metabolic encephalopathy.IV Rocephin , waiting for cultures 4. Hypertension. 5. Diabetes mellitus type 2. 6. Gastroesophageal reflux disease. 7. Late effects of polio. PLAN: KUB x ray dulcolax suppositories prn labs pending urine c/s mixed blair bladder scan no retention spoke with RN iv Rocephin. hopefully confusion will resolve in dontrell. Comment Review of Relevant I have reviewed the following items purnima (where applicable) has been applied. Labs Laboratory Tests Test 11/16/18 11:32 11/16/18 16:44 11/16/18 20:44 11/17/18 07:34 Glucose (Fingerstick) 149 mg/dL (70-99) 123 mg/dL (70-99) 127 mg/dL (70-99) 129 mg/dL (70-99) Microbiology 11/15/18 Urine Culture - Final, Complete 11/15/18 Urine Culture Result 1 (OLGA) - Final, Complete Medications Current Medications Bisacodyl (Dulcolax Supp) 10 mg PRN DAILY PRN CO CONSTIPATION; Start 11/17/18 at 09:45 Lactobacillus Rhamnosus (Culturelle) 1 cap BID PO Last administered on at 08:31; Start 11/16/18 at 21:00 Lisinopril (Prinivil) 5 mg DAILY PO Last administered on 11/17/18at 08:35; Start 11/16/18 at 16:00 Potassium Chloride (Klor-Con) 20 meq 1X ONCE PO Last administered on at 16:11; Start 11/16/18 at 15:45; Stop 11/16/18 at 15:49; Status DC Vitals/I & O Vital Sign - Last 24 Hours 11/16/18 11/16/18 11/16/18 11/16/18 11:00 12:01 15:00 16:11 Temp 98.2 98.6 98.2 98.6 Pulse 99 99 89 89 Resp 18 18 B/P (MAP) 184/83 (116) 184/83 139/77 (97) 139/77 Pulse Ox 95 96 O2 Delivery Room Air Room Air 11/16/18 11/16/18 11/16/18 11/17/18 19:30 20:00 23:00 03:00 Temp 97.7 98.5 98.4 97.7 98.5 98.4 Pulse 85 80 78 Resp 20 20 18 B/P (MAP) 147/70 (95) 148/69 (95) 131/71 (91) Pulse Ox 96 96 98 O2 Delivery Room Air Room Air Room Air Room Air 11/17/18 11/17/18 11/17/18 07:00 08:33 08:35 Temp 98.8 98.8 Pulse 94 94 94 Resp 18 B/P (MAP) 155/91 (112) 155/91 155/91 Pulse Ox 97 O2 Delivery Room Air Intake and Output 11/16/18 11/16/18 11/17/18 15:00 23:00 07:00 Intake Total 360 ml 420 ml 240 ml Balance 360 ml 420 ml 240 ml DEBRA ARNOLD MD Nov 17, 2018 09:51
[2018-11-17] MEDS ORDERED: BISACODYL 5 MG TABLET.DR. PO PRN (10:00)
[2018-11-17 10:24] LABS: CALCIUM 9.1 mg/dL (8.5-10.1); CREATININE 0.5 mg/dL (0.7-1.3); GFR 161.7; MAGNESIUM 1.9 mg/dL (1.8-2.4); POTASSIUM 3.6 mmol/L (3.5-5.1)
[2018-11-17] MEDS: cefTRIAXone IV Push 1 GM VIAL. IVP SCH (10:49)
[2018-11-17 11:00] VITALS: BP 121/84
--- NOTE | 2018-11-17 11:41 | RAD ---
KUNikolas, 11/17/2018: HISTORY: Abdominal distention There is increased gas in large and small bowel. There is mild gaseous distention of the right colon. The overall pattern suggests a generalized ileus. No organomegaly is seen. Scattered vascular calcifications are present. Moderate multilevel degenerative change is evident in the spine. IMPRESSION: Increased bowel gas in a pattern suggesting a generalized ileus or atonic colon. Electronically signed by: Shai Lomas MD (11/17/2018 11:38 AM) [facility]
--- NOTE | 2018-11-17 14:29 | PDOC ---
Renal-Progress Notes Subjective Notes Notes NO NEW COMPLAINTS History of Present Illness Hx of present illness STABLE Vitals Vitals Vital Signs Date Time Temp Pulse Resp B/P (MAP) Pulse Ox O2 Delivery O2 Flow Rate FiO2 11/17/18 11:00 98.6 100 17 121/84 (96) 98 Nasal Cannula 3.0 98.6 Weight Weight [ ] I.O. Intake and Output Intake and Output 11/17/18 06:59 Intake Total 1020 ml Balance 1020 ml Intake Oral 1020 ml # Voids 4 Labs Labs Laboratory Tests Test 11/16/18 16:44 11/16/18 20:44 11/17/18 07:34 11/17/18 09:50 Glucose (Fingerstick) 123 mg/dL (70-99) 127 mg/dL (70-99) 129 mg/dL (70-99) Sodium Level 141 mmol/L (136-145) Potassium Level 3.6 mmol/L (3.5-5.1) Chloride Level 106 mmol/L (98-107) Carbon Dioxide Level 19 mmol/L (21-32) Anion Gap 16 (6-14) Blood Urea Nitrogen 10 mg/dL (8-26) Creatinine 0.5 mg/dL (0.7-1.3) Estimated GFR (Cockcroft-Gault) 161.7 Glucose Level 143 mg/dL (70-99) Calcium Level 9.1 mg/dL (8.5-10.1) Magnesium Level 1.9 mg/dL (1.8-2.4) Test 11/17/18 11:02 Glucose (Fingerstick) 143 mg/dL (70-99) Micro Micro Microbiology 11/15/18 Urine Culture - Final, Complete 11/15/18 Urine Culture Result 1 (OLGA) - Final, Complete Review of Systems Constitutional: yes: other (CONFUSED) Physical Exam General Appearance: no apparent distress Respiratory: decreased breath sounds Heart: S1S2 Abdomen: soft, bowel sounds present Genitourinary: bladder flat Extremities: pulses present Musculoskeletal: low back pain, Osteoarthritis, Other Assessment Assessment IMP HYPOKALEMIA-BETTER HTN DM II UTI MET ENCEPHALOPATHY PLAN ANTIBIOTICS INCREASE JAMARCUS-I REPLACE K WILL FOLLOW HEIDY FAULKNER MD Nov 17, 2018 14:29
[2018-11-17] MEDS ORDERED: POTASSIUM CHLORIDE 20 MEQ TABLET.ER. PO ONE (14:45)
[2018-11-17 15:00] VITALS: BP 145/76
[2018-11-17] MEDS: ENOXAPARIN 40 MG/0.4 ML SYRINGE. SQ SCH (16:13)
--- NOTE | 2018-11-17 18:00 | NUR ---
pt had 2 large bm's this shift after suppository given.
[2018-11-17 19:00] VITALS: BP 167/72
[2018-11-17] MEDS: ATORVASTATIN CALCIUM 10 MG TABLET. PO SCH (20:58)
[2018-11-17] MEDS: CEFDINIR 300 MG CAPSULE PO SCH (20:58)
[2018-11-17 23:00] VITALS: BP 138/78
[2018-11-18 02:55] VITALS: BP 167/69
[2018-11-18 06:29] LABS: CALCIUM 9.8 mg/dL (8.5-10.1); CREATININE 0.5 mg/dL (0.7-1.3); GFR 161.7; POTASSIUM 4.7 mmol/L (3.5-5.1)
[2018-11-18 07:00] VITALS: BP 180/101
[2018-11-18] MEDS: ASPIRIN ENTERIC COATED 325 MG TABLET.DR. PO SCH (09:03)
[2018-11-18] MEDS: metFORMIN 500 MG TABLET PO SCH (09:03)
[2018-11-18] MEDS: LISINOPRIL 20 MG TABLET PO SCH (09:03)
[2018-11-18] MEDS: CEFDINIR 300 MG CAPSULE PO SCH ×2 (09:03→21:56)
[2018-11-18] MEDS: amLODIPine BESYLATE 5 MG TABLET PO SCH (09:03)
[2018-11-18] MEDS: LINAGLIPTIN 5 MG TABLET PO SCH (09:04)
[2018-11-18] MEDS: POTASSIUM CHLORIDE 20 MEQ TABLET.ER. PO SCH (09:04)
[2018-11-18] MEDS: AMITRIPTYLINE HCL 10 MG TABLET. PO SCH (09:04)
[2018-11-18] MEDS: LACTOBACILLUS RHAMNOSUS GG 1 CAPSULE. PO SCH ×2 (09:04→21:56)
[2018-11-18] MEDS: FAMOTIDINE 20 MG TABLET. PO SCH ×2 (09:04→21:56)
--- NOTE | 2018-11-18 09:54 | NUR ---
ELIER following pt. Spoke with Physician and plan is to dc home on Friday. Spoke with Brynn at and pt's needs a Erik lift and hospital bed. Orders signed by Physician. ELIER phoned and faxed DME orders to [facility]. [employer] with follow up with pt's regarding Home health. Will continue to follow. LOIDA DEE.
--- NOTE | 2018-11-18 09:59 | PDOC ---
PROGRESS NOTES Subjective Subjective hallucinating today, seeing things Objective Objective Vital Signs Date Time Temp Pulse Resp B/P (MAP) Pulse Ox O2 Delivery O2 Flow Rate FiO2 11/18/18 09:03 93 180/101 11/18/18 07:00 98.1 18 99 Room Air 98.1 11/17/18 11:00 3.0 Intake and Output 11/18/18 06:59 Intake Total 540 ml Balance 540 ml Intake Oral 540 ml # Voids 2 # Bowel Movements 3 Physical Exam Abdomen: Other (soft and distended more than usual) Heart: Regular rate, Normal S1, Normal S2 HEENT: Atraumatic Lungs: Clear to auscultation MUSCULOSKELETAL: Osteoarthritic changes both hands Neck: Supple Neuro: Normal speech Psych/Mental Status: Other (agitated and confused ) Skin: No breakdown Assessment Assessment IMPRESSION:Abd distention, had small bms 3 a per RN 1. Severe hypokalemia. 2. Acute metabolic encephalopathy, due to UTI 3. Acute urinary tract infection, may be contributing to metabolic encephalopathy.IV Rocephin , waiting for cultures 4. Hypertension. 5. Diabetes mellitus type 2. 6. Gastroesophageal reflux disease. 7. Late effects of polio. PLAN: hallucinations and confusion KUB x ray,illeus ?atonic colon dulcolax suppositories prn,had small bms3 labs improving ,pot 4.3 urine c/s mixed blair bladder scan no retention spoke with RN po antibiotics spoke with pts and son ,they want to take him home Geripsyche referral back up Neurology and GI consult Comment Review of Relevant I have reviewed the following items purnima (where applicable) has been applied. Labs Laboratory Tests Test 11/17/18 11:02 11/17/18 15:33 11/17/18 16:58 11/17/18 20:42 Glucose (Fingerstick) 143 mg/dL (70-99) 106 mg/dL (70-99) 117 mg/dL (70-99) 105 mg/dL (70-99) Test 11/18/18 05:45 11/18/18 07:29 Sodium Level 140 mmol/L (136-145) Potassium Level 4.7 mmol/L (3.5-5.1) Chloride Level 105 mmol/L (98-107) Carbon Dioxide Level 17 mmol/L (21-32) Anion Gap 18 (6-14) Blood Urea Nitrogen 9 mg/dL (8-26) Creatinine 0.5 mg/dL (0.7-1.3) Estimated GFR (Cockcroft-Gault) 161.7 Glucose Level 137 mg/dL (70-99) Calcium Level 9.8 mg/dL (8.5-10.1) Glucose (Fingerstick) 138 mg/dL (70-99) Microbiology 11/15/18 Urine Culture - Final, Complete 11/15/18 Urine Culture Result 1 (OLGA) - Final, Complete Medications Current Medications Bisacodyl (Dulcolax Supp) 10 mg PRN DAILY PRN [place] CONSTIPATION; Start 11/17/18 at 10:00 Bisacodyl (Dulcolax Tab) 5 mg PRN DAILY PRN PO CONSTIPATION; Start 11/17/18 at 10:00 Cefdinir (Omnicef) 300 mg BID PO Last administered on 11/18/18at 09:03; Start at 21:00 Lisinopril (Prinivil) 20 mg DAILY PO Last administered on 11/18/18at 09:03; Start 11/18/18 at 09:00 Potassium Chloride (Klor-Con) 40 meq 1X ONCE PO Last administered on at 15:18; Start 11/17/18 at 14:45; Stop 11/17/18 at 14:46; Status DC Vitals/I & O Vital Sign - Last 24 Hours 11/17/18 11/17/18 11/17/18 11/17/18 11:00 15:00 19:00 20:00 Temp 98.6 97.6 98.7 98.6 97.6 98.7 Pulse 100 92 94 Resp 17 17 18 B/P (MAP) 121/84 (96) 145/76 (99) 167/72 (103) Pulse Ox 98 98 98 O2 Delivery Nasal Cannula Room Air Room Air Room Air O2 Flow Rate 3.0 11/17/18 11/18/18 11/18/18 11/18/18 23:00 02:55 07:00 09:03 Temp 98.1 98.4 98.1 98.1 98.4 98.1 Pulse 90 74 93 93 Resp 18 18 18 B/P (MAP) 138/78 (98) 167/69 (101) 180/101 (127) 180/101 Pulse Ox 98 96 99 O2 Delivery Room Air Room Air Room Air 11/18/18 09:03 Pulse 93 B/P (MAP) 180/101 Intake and Output 11/17/18 11/17/18 11/18/18 14:59 22:59 06:59 Intake Total 360 ml 180 ml Balance 360 ml 180 ml DEBRA ARNOLD MD Nov 18, 2018 09:59
[2018-11-18 11:00] VITALS: BP 146/92
--- NOTE | 2018-11-18 11:12 | PDOC2 ---
GI CONSULT Reason For Consult: abd distention, ?ileus HPI: HPI: 78 y/o male admitted 11/15/18 w/ confusion, hypokalemia, and ?UTI. Noted w/ abdominal distention yesterday, KUB then showed ileus vs atonic colon. Received suppository and has stooled 2-3 times since. He is confused and not a good historian this morning. He might have RLQ pain and might vomit sometimes. Per RN, tolerating PO. We have seen him in the past for abd distention and vomiting. Per last GI consult, h/o bloating, constipation, and GERD. He also reported alcoholic cirrhosis. No previous EGD, had a colonoscopy ~4-5 years ago perhaps w/ polyps. No known GB or pancreas history. On famotidine BID + ASA here. PMH: PMH: per chart - HTN, HLD, AMANDA< diverticulosis, hemorrhoids, past alcoholism, hepatic steatosis, low back pain, OA, poliomyelitis, DM, ankle surgeries FH: Family History: CAD, CVA, DM Social History: Smoke: Quit ALCOHOL: other Drugs: None ROS: Difficult to obtain. Vitals: Vitals: Vital Signs Date Time Temp Pulse Resp B/P (MAP) Pulse Ox O2 Delivery O2 Flow Rate FiO2 11/18/18 11:00 98.4 112 18 146/92 (110) 97 Room Air 98.4 11/17/18 11:00 3.0 Labs: Labs: Laboratory Tests Test 11/17/18 15:33 11/17/18 16:58 11/17/18 20:42 11/18/18 05:45 Glucose (Fingerstick) 106 mg/dL (70-99) 117 mg/dL (70-99) 105 mg/dL (70-99) Sodium Level 140 mmol/L (136-145) Potassium Level 4.7 mmol/L (3.5-5.1) Chloride Level 105 mmol/L (98-107) Carbon Dioxide Level 17 mmol/L (21-32) Anion Gap 18 (6-14) Blood Urea Nitrogen 9 mg/dL (8-26) Creatinine 0.5 mg/dL (0.7-1.3) Estimated GFR (Cockcroft-Gault) 161.7 Glucose Level 137 mg/dL (70-99) Calcium Level 9.8 mg/dL (8.5-10.1) Test 11/18/18 07:29 Glucose (Fingerstick) 138 mg/dL (70-99) Allergies: Coded Allergies: No Known Drug Allergies (Unverified , 03/22/15) Medications: Current Medications Medications (Trade) Dose Ordered Sig/Orin Route PRN Reason Start Time Stop Time Status Last Admin Dose Admin Lisinopril (Prinivil) 20 mg DAILY PO 11/18/18 09:00 11/18/18 09:03 Potassium Chloride (Klor-Con) 40 meq 1X ONCE PO 11/17/18 14:45 11/17/18 14:46 DC 11/17/18 15:18 Cefdinir (Omnicef) 300 mg BID PO 11/17/18 21:00 11/18/18 09:03 Imaging: Imaging: KUB 11/17 IMPRESSION: Increased bowel gas in a pattern suggesting a generalized ileus or atonic colon. Head CT 11/18 (pending) PE: GEN: NAD HEENT: Atraumatic, PERRL LUNGS: CTAB HEART: RRR ABD: distended, quiet, not particularly tender EXTREMITY: No edema SKIN: No rashes, no jaundice NEURO/PSYCH: confused, pleasant A/P: A/P: AMS Abd distention GERD CRC screen, ?h/o polyps - seems had a colonoscopy within the past 5 years H/o alcoholism, hepatic steatosis - normal LFTs HTN -- ?additional imaging - will review w/ NANNETTE Cintron Nov 18, 2018 11:12
--- NOTE | 2018-11-18 11:36 | RAD ---
EXAM: Head CT without contrast. HISTORY: Confusion. Mental status changes. TECHNIQUE: Computed tomographic images of the head were obtained without contrast. *One or more of the following individualized dose reduction techniques were utilized for this examination: 1. Automated exposure control. 2. Adjustment of the mA and/or kV according to patient size. 3. Use of iterative reconstruction technique. COMPARISON: MRI dated 11/02/2018.. FINDINGS: There is no acute or subacute hemorrhage. There is no mass effect or midline shift. There is stable moderate enlargement of the ventricles. This is slightly greater than expected for the degree of cerebral volume loss. There are subtle areas of hypodensity within the cerebral white matter, likely due to chronic small vessel disease. There is evidence of lens surgery. There is near complete opacification of the sphenoid sinus with sphenoid sinus wall thickening due to the sequela of chronic sinusitis. The mastoid air cells are clear. No suspicious calvarial lesion is seen. IMPRESSION: 1. No acute intracranial finding. 2. Stable moderate ventricular enlargement. This is slightly greater than expected for the degree of cerebral atrophy. However, this is not clearly within limits to suggest normal pressure hydrocephalus. 3. Scattered areas of hypodensity within the cerebral white matter, likely due to chronic small vessel disease. 4. Chronic sphenoid sinus disease. Electronically signed by: Maria Fernanda Jerez MD (11/18/2018 11:33 AM) [id number]
--- NOTE | 2018-11-18 12:22 | PDOC ---
Renal-Progress Notes Subjective Notes Notes NONE History of Present Illness Hx of present illness STABLE Vitals Vitals Vital Signs Date Time Temp Pulse Resp B/P (MAP) Pulse Ox O2 Delivery O2 Flow Rate FiO2 11/18/18 11:00 98.4 112 18 146/92 (110) 97 Room Air 98.4 11/17/18 11:00 3.0 Weight Weight [ ] I.O. Intake and Output Intake and Output 11/18/18 07:00 Intake Total 540 ml Balance 540 ml Intake Oral 540 ml # Voids 2 # Bowel Movements 3 Labs Labs Laboratory Tests Test 11/17/18 15:33 11/17/18 16:58 11/17/18 20:42 11/18/18 05:45 Glucose (Fingerstick) 106 mg/dL (70-99) 117 mg/dL (70-99) 105 mg/dL (70-99) Sodium Level 140 mmol/L (136-145) Potassium Level 4.7 mmol/L (3.5-5.1) Chloride Level 105 mmol/L (98-107) Carbon Dioxide Level 17 mmol/L (21-32) Anion Gap 18 (6-14) Blood Urea Nitrogen 9 mg/dL (8-26) Creatinine 0.5 mg/dL (0.7-1.3) Estimated GFR (Cockcroft-Gault) 161.7 Glucose Level 137 mg/dL (70-99) Calcium Level 9.8 mg/dL (8.5-10.1) Test 11/18/18 07:29 11/18/18 11:11 Glucose (Fingerstick) 138 mg/dL (70-99) 127 mg/dL (70-99) Micro Micro Microbiology 11/15/18 Urine Culture - Final, Complete 11/15/18 Urine Culture Result 1 (OLGA) - Final, Complete Review of Systems Constitutional: yes: other (CONFUSED) Physical Exam General Appearance: no apparent distress Respiratory: decreased breath sounds Heart: S1S2 Abdomen: soft, bowel sounds present Genitourinary: bladder flat Extremities: pulses present Musculoskeletal: low back pain, Osteoarthritis, Other Assessment Assessment IMP HYPOKALEMIA-RESOLVED HTN-BETTER DM II UTI MET ENCEPHALOPATHY PLAN WILL SIGN OFF D/W ATTENDING HEIDY FAULKNER MD Nov 18, 2018 12:22
[2018-11-18] MEDS: CYANOCOBALAMIN (VITAMIN B-12) 1,000 MCG TABLET. PO SCH (13:21)
--- NOTE | 2018-11-18 14:36 | RAD ---
Portable chest, 11/18/2018: HISTORY: Shortness of breath Comparison is made to a study from 11/01/2018. The heart size and pulmonary vascularity are normal. No pulmonary infiltrate is seen. There is no evidence of pleural fluid. There is a moderate thoracolumbar scoliosis with scattered degenerative changes. Dilated gas-filled bowel loops are noted in the upper abdomen. IMPRESSION: No acute cardiopulmonary abnormality is detected. Electronically signed by: Shai Lomas MD (11/18/2018 2:33 PM) [facility]
[2018-11-18 14:43] VITALS: BP 144/85
--- NOTE | 2018-11-18 15:11 | RAD ---
MITA, 07/18/2019: HISTORY: Abdominal distention There is moderate gaseous distention of what appears to be predominantly large bowel. This appears to worsened slightly since yesterday study. There is a lesser degree of gas in small bowel loops. No organomegaly is seen. Moderate scattered arterial calcifications are present. IMPRESSION: Slight interval worsening of the gaseous distention of predominantly large bowel. The findings suggest an atonic colon or ileus, although distal colonic obstruction cannot be excluded. Electronically signed by: Shai Lomas MD (11/18/2018 3:08 PM) [facility]
--- NOTE | 2018-11-18 15:29 | EEG ---
DATE OF SERVICE: 11/18/2018 EEG NUMBER: [id number]. OBJECTIVE: This is a 78-year-old male patient with history of mental status changes and confusion. EEG was requested to evaluate cerebral activity and to help rule out seizure. METHODS: Twenty electrodes were applied according to the international 10-20 electrode placement system. EKG monitoring, hyperventilation, intermittent photic stimulation, monopolar and bipolar montages are routinely utilized. The record was obtained on a digital system with video monitoring. FINDINGS: 1. Background: The patient was recorded in the awake, drowsy, and sleep states. The overall background amplitude is variable. No clear well-organized posterior dominant rhythm is observed. The overall background rhythm is with diffuse slowing in the theta and delta frequencies throughout the entire recording. 2. Abnormalities: No specific epileptiform discharge or electrographic seizure is seen. Diffuse slowing in the theta and delta frequencies throughout the entire recording. 3. Activation: Hyperventilation was not performed because the patient was not able to follow the commands. Intermittent photic stimulation was performed with photic driving. IMPRESSION: This EEG is an abnormal study for the awake, drowsy, and sleep states. No clear well-organized posterior dominant rhythm is observed. The overall background rhythm is with diffuse slowing in the theta and delta frequencies throughout the entire recording. No focal, lateralizing, specific epileptiform discharge or electrographic seizure is seen. This pattern of EEG is suggestive of diffuse encephalopathy. ELIA ARGUETA MD DR: ANDRESSA/ki JOB#: [id number] / [id number] HONG
[2018-11-18] MEDS: ENOXAPARIN 40 MG/0.4 ML SYRINGE. SQ SCH (16:14)
--- NOTE | 2018-11-18 17:27 | RAD ---
CT of the abdomen and pelvis without contrast, 11/18/2018: HISTORY: Abdominal distention Noncontrast scans were obtained as requested. Comparison is made to a study from 01/03/2017. There are 2 well-defined low density lesions in the liver. Accurate internal CT numbers cannot be obtained due to streak artifacts related to the patient's arms. These are probably cysts. The unopacified liver is otherwise unremarkable. No gallbladder abnormality is seen. The pancreas shows no abnormality. The spleen is of normal size. There is a small right renal cortical cyst. Several small nonobstructing intrarenal calculi are present on the right. The right ureter is unremarkable. A small calculus seen in the lower pole of the left kidney on the previous study is no longer visible. The left renal collecting system and left ureter are not dilated. There is a 3 mm calculus in the distal left ureter without evidence of significant associated obstruction. The partially filled urinary bladder is unremarkable. Prostatic calcifications are noted. There is moderate aortoiliac calcific plaquing. No abdominal or pelvic adenopathy is seen. The small bowel loops are not dilated. The ascending colon is not dilated. There is some gas in the transverse colon. The descending colon is not dilated. There is increased gas in the proximal to mid sigmoid colon within anteriorly positioned sigmoid loops. This is likely positional related to an atonic colon. The distal sigmoid and rectum are not dilated. Similar findings were present on the previous study of 01/03/2017. No free air or free fluid is evident in the abdomen or pelvis. There is a moderate thoracolumbar scoliosis with moderate multilevel degenerative change. IMPRESSION: 1. Small nonobstructing right intrarenal calculi. 2. Small calculus in the distal left ureter without evidence of significant recurrent left ureteral obstruction. 3. Mild gaseous distention of the anterior portions of the proximal to mid sigmoid colon which is probably positional. A mid sigmoid stricture is less likely. 4. Probable hepatic cysts. PQRS Compliance Statement: One or more of the following individualized dose reduction techniques were utilized for this examination: 1. Automated exposure control 2. Adjustment of the mA and/or kV according to patient size 3. Use of iterative reconstruction technique Electronically signed by: Shai Lomas MD (11/18/2018 5:24 PM) [facility]
--- NOTE | 2018-11-18 17:35 | PDOC2 ---
NEUROLOGY CONSULT Date of Admission Date of Admission DATE: 11/18/18 TIME: 17:21 Reason for Consult Reason for Consult: IMPRESSION: Metabolic encephalopathy. Confusion. Slurred speech. Hypokalemia, K+ 2.5. Ileus or atonic colon? UTI. DM. HTN. HLD. Vit B12 deficiency. Polio Hx. Over weight. RECOMMENDATIONS/PLAN: Continue ASA 325 mg daily. Continue Lipitor HS. Brain MRI w/o contrast if not improving. Treat medical diseases. Vit B12 supplement. HCT on 11/18/18: No acute findings. HISTORY OF THE PRESENT ILLNESS: 78-y-old male patient with multiple medical diseases was admitted to [facility] this time due to electrolytes imbalances. He has MS changes, confusion, slurred speech and generalized weakness, so Neurology was requested for consultation on 11/18/18. He had MRI on 11/02/18 but it was negative for acute CVA at that time. Past Medical History Cardiovascular: HTN, Syncope, Hyperlipidemia Pulmonary: Other CENTRAL NERVOUS SYSTEM: Other GI: Diverticulosis, GERD, Hemorrhoids Hepatobiliary: Cirrhosis Psych: Addictions Musculoskeletal: low back pain, Osteoarthritis, Other Infectious disease: Other Endocrine: Diabetes Past Surgical History No major surgery recently. Family History Coronary Artery Disease, Diabetes Social History ALCOHOL: other Drugs: None Lives: with Family ALLERGY: NKDA MEDICATIONS: Refer to MAR REVIEW OF SYSTEMS: Constitutional: No malnutrition, weight loss, cachexia. Head: No traumatic brain or head injury. Skin: No edema, or rash. Ear: No infection. Eyes: No vision loss or color blindness. Nose: No bleeding or purulent discharges. Hearing: Hearing decrease. Neck: No injury. Cardiac: HTN, HLD. Pulmonary: No COPD. GI: No GI ulcer, GI bleeding. Urinary/genital: UTI. Endocrinologic: Obesity. Skeletomuscular: Polio. Neurological: see HP. Psychiatric: Denies drug use/abuse. Otherwise, not -ozwev review of systems. PHYSICAL EXAMINATION: General appearance is in confusional state. HEENT: Normocephalic and nontraumatic. Eyes, nose, ears, and throat are unremarkable. Neck is supple. No lymphadenopathy. No crepitus. Cardiovascular: S1, S2, regular rate and rhythm. Pulmonary: Clear to auscultation bilaterally. Abdomen: Bowel sounds are positive. Extremities: No rash, lesions, or edema. NEUROLOGICAL EXAMINATION: Awake. Not oriented to time, place and person. PERRL. EOMI. CN: no focal findings. Muscle tone: WNL. Muscle strength: 4+ UE, but unable to access in LE due to not follow commands. DTR: 1-2 Plantar reflex: Neutral response bilaterally Gait: not examined in bed. Sensory exam: no abnormal findings. No other cerebellar signs elicited. F-T-N test not follow commands. Current Medications Current Medications Current Medications Amitriptyline HCl (Elavil) 10 mg DAILY PO Last administered on 11/18/18 09:04 ; Start 11/15/18 at 12:00; Stop 11/18/18 at 09:56; Status DC Aspirin (Ecotrin) 325 mg DAILY PO Last administered on 11/18/18 09:03; Start 11/15/18 at 11:00 Atorvastatin Calcium (Lipitor) 10 mg HS PO Last administered on 11/17/18 20:58 ; Start 11/15/18 at 21:00 Famotidine (Pepcid) 20 mg BID PO Last administered on 11/18/18 09:04; Start at 11:00 Linagliptin (Tradjenta) 5 mg DAILY PO Last administered on 11/18/18 09:04; Start 11/15/18 at 12:00 Ceftriaxone Sodium (Rocephin) 1 gm Q24H IVP Last administered on 11/17/18 10: 49; Start 11/15/18 at 11:00; Stop 11/17/18 at 15:01; Status DC Potassium Chloride/Dextrose/ Sod Cl 1,000 ml @ 250 mls/hr 1X ONCE IV Last administered on 11/15/18 10:40; Start 11/15/18 at 11:00; Stop 11/15/18 at 14:59 ; Status DC Metformin HCl (Glucophage) 500 mg DAILY PO Last administered on 11/18/18 09:03 ; Start 11/15/18 at 12:00; Stop 11/18/18 at 09:56; Status DC Ceftriaxone Sodium (Rocephin) 1 gm Q24H IVP ; Start 11/15/18 at 11:00; Status UNV Enoxaparin Sodium (Lovenox 40mg Syringe) 40 mg Q24H SQ Last administered on 2/ 13/19at 16:14; Start 11/15/18 at 16:00 Acetaminophen (Tylenol) 650 mg PRN Q6HRS PRN PO MILD PAIN / TEMP; Start at 11:00 Potassium Chloride (Klor-Con) 40 meq TIDWMEALS PO Last administered on 09:04; Start 11/15/18 at 12:00; Stop 11/18/18 at 10:07; Status DC Amlodipine Besylate (Norvasc) 5 mg DAILY PO Last administered on 11/18/18 09: 03; Start 11/15/18 at 15:30 Clonidine HCl (Catapres) 0.1 mg PRN Q8HRS PRN PO ELEVATED BP, SEE COMMENTS Last administered on 11/16/18at 12:01; Start 11/15/18 at 15:15 Lactobacillus Rhamnosus (Culturelle) 1 cap BID PO Last administered on 09:04; Start 11/16/18 at 21:00 Lisinopril (Prinivil) 5 mg DAILY PO Last administered on 11/17/18at 08:35; Start 11/16/18 at 16:00; Stop 11/17/18 at 14:30; Status DC Potassium Chloride (Klor-Con) 20 meq 1X ONCE PO Last administered on 16:11; Start 11/16/18 at 15:45; Stop 11/16/18 at 15:49; Status DC Bisacodyl (Dulcolax Supp) 10 mg PRN DAILY PRN [place] CONSTIPATION Last administered on 11/17/18 10:09; Start 11/17/18 at 09:45; Stop 11/17/18 at 15:01 ; Status DC Bisacodyl (Dulcolax Supp) 10 mg PRN DAILY PRN [place] CONSTIPATION; Start 11/17/18 at 10:00 Bisacodyl (Dulcolax Tab) 5 mg PRN DAILY PRN PO CONSTIPATION; Start 11/17/18 at 10:00 Lisinopril (Prinivil) 20 mg DAILY PO Last administered on 11/18/18 09:03; Start 11/18/18 at 09:00 Potassium Chloride (Klor-Con) 40 meq 1X ONCE PO Last administered on at 15:18; Start 11/17/18 at 14:45; Stop 11/17/18 at 14:46; Status DC Cefdinir (Omnicef) 300 mg BID PO Last administered on 11/18/18at 09:03; Start at 21:00 Potassium Chloride (Klor-Con) 40 meq DAILY PO ; Start 11/19/18 at 09:00; Stop at 11:59 Cyanocobalamin (Vitamin B-12) 1,000 mcg DAILY PO Last administered on at 13:21; Start 11/18/18 at 12:00 Active Scripts Active Reported Janumet 50-500 Mg Tablet (Sitagliptin Phos/Metformin Hcl) 1 Each Tablet 1 Tab PO BID Atorvastatin Calcium 10 Mg Tablet 10 Mg PO HS Amitriptyline Hcl 10 Mg Tablet 10 Mg PO DAILY Ranitidine Hcl 150 Mg Capsule 150 Mg PO BID Allergies Allergies: Allergies Coded Allergies Type Severity Reaction Last Updated Verified No Known Drug Allergies 03/22/15 No ROS Review of System The patient denies any associated fevers, chills, headache, ear pain, rhinorrhea , sore throat, stiff neck, productive cough, chest pain, shortness of breath, back or flank pain, abdominal pain, nausea, vomiting, diarrhea, constipation, dysuria, rash, numbness, weakness, tingling, incontinence, difficulty ambulating, or diaphoresis. Physical Exam Physical Exam General: Well developed, well nourished, no acute distress, well appearing HEENT: Pupils equally round and reactive to light, EOMI, no discharge, normal conjunctiva Neck: Supple, no nuchal rigidity, no JVD, trachea midline, no tenderness Cardiac: RRR, no murmurs, no gallops, no rubs Chest/Lungs: CTAB, no wheeze, no rhonchi, no crackles Abdomen: soft, non-distended, no guarding, no peritoneal signs, non-tender Back: No tenderness Extremities: no edema, pulses intact, non-tender,capillary refill <3 sec bilateral upper and lower extremities, Neuro: Alert and oriented x 4, no focal deficits, normal speech Vitals Vitals: Vital Signs Date Time Temp Pulse Resp B/P (MAP) Pulse Ox O2 Delivery O2 Flow Rate FiO2 11/18/18 14:43 99.0 103 18 144/85 (104) 97 Room Air 99.0 11/17/18 11:00 3.0 Labs Labs Laboratory Tests Test 11/16/18 20:44 11/17/18 07:34 11/17/18 09:50 11/17/18 11:02 Glucose (Fingerstick) 127 mg/dL (70-99) 129 mg/dL (70-99) 143 mg/dL (70-99) Sodium Level 141 mmol/L (136-145) Potassium Level 3.6 mmol/L (3.5-5.1) Chloride Level 106 mmol/L (98-107) Carbon Dioxide Level 19 mmol/L (21-32) Anion Gap 16 (6-14) Blood Urea Nitrogen 10 mg/dL (8-26) Creatinine 0.5 mg/dL (0.7-1.3) Estimated GFR (Cockcroft-Gault) 161.7 Glucose Level 143 mg/dL (70-99) Calcium Level 9.1 mg/dL (8.5-10.1) Magnesium Level 1.9 mg/dL (1.8-2.4) Test 11/17/18 15:33 11/17/18 16:58 11/17/18 20:42 11/18/18 05:45 Glucose (Fingerstick) 106 mg/dL (70-99) 117 mg/dL (70-99) 105 mg/dL (70-99) Sodium Level 140 mmol/L (136-145) Potassium Level 4.7 mmol/L (3.5-5.1) Chloride Level 105 mmol/L (98-107) Carbon Dioxide Level 17 mmol/L (21-32) Anion Gap 18 (6-14) Blood Urea Nitrogen 9 mg/dL (8-26) Creatinine 0.5 mg/dL (0.7-1.3) Estimated GFR (Cockcroft-Gault) 161.7 Glucose Level 137 mg/dL (70-99) Calcium Level 9.8 mg/dL (8.5-10.1) Test 11/18/18 07:29 11/18/18 11:11 11/18/18 16:18 Glucose (Fingerstick) 138 mg/dL (70-99) 127 mg/dL (70-99) 132 mg/dL (70-99) Laboratory Tests Test 11/17/18 20:42 11/18/18 05:45 11/18/18 07:29 11/18/18 11:11 Glucose (Fingerstick) 105 mg/dL (70-99) 138 mg/dL (70-99) 127 mg/dL (70-99) Sodium Level 140 mmol/L (136-145) Potassium Level 4.7 mmol/L (3.5-5.1) Chloride Level 105 mmol/L (98-107) Carbon Dioxide Level 17 mmol/L (21-32) Anion Gap 18 (6-14) Blood Urea Nitrogen 9 mg/dL (8-26) Creatinine 0.5 mg/dL (0.7-1.3) Estimated GFR (Cockcroft-Gault) 161.7 Glucose Level 137 mg/dL (70-99) Calcium Level 9.8 mg/dL (8.5-10.1) Test 11/18/18 16:18 Glucose (Fingerstick) 132 mg/dL (70-99) ELIA ARGUETA MD Nov 18, 2018 17:35
[2018-11-18 19:00] VITALS: BP 178/85
[2018-11-18] MEDS: ATORVASTATIN CALCIUM 10 MG TABLET. PO SCH (21:56)
[2018-11-18 23:04] VITALS: BP 132/99
[2018-11-19 03:15] VITALS: BP 140/85
[2018-11-19 05:34] LABS: BASO # 0.1 x10^3/uL (0.0-0.2); BASO % 1 % (0-3); EOS % 0 % (0-3); HEMATOCRIT 46.2 % (39.0-53.0); HEMOGLOBIN 14.8 g/dL (13.0-17.5); LYMPH % 11 % (24-48); MEAN CORPUSCULAR HEMOGLOBIN 30 pg (25-35); MEAN CORPUSCULAR HGB CONC 32 g/dL (31-37); MEAN CORPUSCULAR VOLUME 95 fL (79-100); MONO # 0.4 x10^3/uL (0.0-1.1); MONO % 4 % (0-9); NEUT # 8.3 x10^3uL (1.8-7.7); NEUT % 84 % (31-73); PLATELET COUNT 363 x10^3/uL (140-400); RED BLOOD COUNT 4.87 x10^6/uL (4.30-5.70); RED CELL DISTRIBUTION WIDTH 15.2 % (11.5-14.5); WHITE BLOOD COUNT 9.9 x10^3/uL (4.0-11.0)
[2018-11-19 05:56] LABS: CALCIUM 9.9 mg/dL (8.5-10.1); CREATININE 0.6 mg/dL (0.7-1.3); POTASSIUM 3.9 mmol/L (3.5-5.1)
[2018-11-19 07:00] VITALS: BP 153/95
[2018-11-19] MEDS ORDERED: GADOBUTROL 7.5 MMOL/7.5 ML VIAL IV ONE (08:45)
[2018-11-19] MEDS ORDERED: POTASSIUM CHLORIDE 20 MEQ TABLET.ER. PO SCH (09:00)
--- NOTE | 2018-11-19 09:28 | RAD ---
EXAM: Brain MRI without contrast. HISTORY: Altered mental status. Seizures. Lethargy. TECHNIQUE: Multiplanar, multisequence magnetic resonance imaging of the brain was performed without contrast. COMPARISON: 11/02/2017 FINDINGS: There is stable increased signal within the agusto on diffusion-weighted images due to T2 shine through artifact. There is no convincing restricted diffusion to suggest acute or subacute infarction. There is no susceptibility effect to suggest hemorrhage. There is no mass effect or midline shift. There is stable ventricular enlargement due to cerebral atrophy. This is not greater than expected for cerebral volume to suggest hydrocephalus. There is stable T2/FLAIR hyperintensity within the agusto and there are stable scattered focal and confluent areas of T2/FLAIR hyperintensity throughout the cerebral white matter. There is evidence of lens surgery. There is sphenoid sinus mucosal thickening. The mastoid air cells are clear. There are normal flow voids within the cerebral vessels. IMPRESSION: 1. No acute intracranial finding. 2. Scattered areas of signal change throughout the cerebral white matter, likely due to chronic small vessel disease. 3. Stable T2/FLAIR hyperintensity within the agusto. This is also nonspecific and likely due to chronic small vessel disease. This is not within limits to suggest an alternative etiology such as central pontine myelinolysis. 4. Cerebral atrophy with compensatory enlargement of the ventricles. 5. Sphenoid sinus disease. Electronically signed by: Maria Fernanda Jerez MD (11/19/2018 9:25 AM) [id number]
[2018-11-19] MEDS: ASPIRIN ENTERIC COATED 325 MG TABLET.DR. PO SCH (09:42)
[2018-11-19] MEDS: LISINOPRIL 20 MG TABLET PO SCH (09:42)
[2018-11-19] MEDS: CEFDINIR 300 MG CAPSULE PO SCH (09:42)
[2018-11-19] MEDS: CYANOCOBALAMIN (VITAMIN B-12) 1,000 MCG TABLET. PO SCH (09:43)
[2018-11-19] MEDS: LINAGLIPTIN 5 MG TABLET PO SCH (09:43)
[2018-11-19] MEDS: LACTOBACILLUS RHAMNOSUS GG 1 CAPSULE. PO SCH (09:43)
[2018-11-19] MEDS: amLODIPine BESYLATE 5 MG TABLET PO SCH (09:44)
[2018-11-19] MEDS: FAMOTIDINE 20 MG TABLET. PO SCH (09:44)
--- NOTE | 2018-11-19 09:47 | PDOC ---
Objective: Objective: 2 stools charted Vital Signs: Vital Signs Date Time Temp Pulse Resp B/P (MAP) Pulse Ox O2 Delivery O2 Flow Rate FiO2 11/19/18 07:00 98.5 99 17 153/95 (114) 97 Room Air 98.5 Labs: Laboratory Tests Test 11/18/18 11:11 11/18/18 16:18 11/18/18 20:42 11/19/18 04:55 Glucose (Fingerstick) 127 mg/dL 132 mg/dL 145 mg/dL White Blood Count 9.9 x10^3/uL Red Blood Count 4.87 x10^6/uL Hemoglobin 14.8 g/dL Hematocrit 46.2 % Mean Corpuscular Volume 95 fL Mean Corpuscular Hemoglobin 30 pg Mean Corpuscular Hemoglobin Concent 32 g/dL Red Cell Distribution Width 15.2 % Platelet Count 363 x10^3/uL Neutrophils (%) (Auto) 84 % Lymphocytes (%) (Auto) 11 % Monocytes (%) (Auto) 4 % Eosinophils (%) (Auto) 0 % Basophils (%) (Auto) 1 % Neutrophils # (Auto) 8.3 x10^3uL Lymphocytes # (Auto) 1.0 x10^3/uL Monocytes # (Auto) 0.4 x10^3/uL Eosinophils # (Auto) 0.0 x10^3/uL Basophils # (Auto) 0.1 x10^3/uL Sodium Level 139 mmol/L Potassium Level 3.9 mmol/L Chloride Level 104 mmol/L Carbon Dioxide Level 12 mmol/L Anion Gap 23 Blood Urea Nitrogen 14 mg/dL Creatinine 0.6 mg/dL Estimated GFR (Cockcroft-Gault) 131.0 Glucose Level 168 mg/dL Calcium Level 9.9 mg/dL Test 11/19/18 07:39 Glucose (Fingerstick) 140 mg/dL Imaging: KUB 11/18 IMPRESSION: Slight interval worsening of the gaseous distention of predominantly large bowel. The findings suggest an atonic colon or ileus, although distal colonic obstruction cannot be excluded. CT A/P 11/18 IMPRESSION: 1. Small nonobstructing right intrarenal calculi. 2. Small calculus in the distal left ureter without evidence of significant recurrent left ureteral obstruction. 3. Mild gaseous distention of the anterior portions of the proximal to mid sigmoid colon which is probably positional. A mid sigmoid stricture is less likely. 4. Probable hepatic cysts. EEG IMPRESSION: This EEG is an abnormal study for the awake, drowsy, and sleep states. No clear well-organized posterior dominant rhythm is observed. The overall background rhythm is with diffuse slowing in the theta and delta frequencies throughout the entire recording. No focal, lateralizing, specific epileptiform discharge or electrographic seizure is seen. This pattern of EEG is suggestive of diffuse encephalopathy. Brain MRI 11/19 IMPRESSION: 1. No acute intracranial finding. 2. Scattered areas of signal change throughout the cerebral white matter, likely due to chronic small vessel disease. 3. Stable T2/FLAIR hyperintensity within the agusto. This is also nonspecific and likely due to chronic small vessel disease. This is not within limits to suggest an alternative etiology such as central pontine myelinolysis. 4. Cerebral atrophy with compensatory enlargement of the ventricles. 5. Sphenoid sinus disease. PE: out of room A/P: Encephalopathy Abd distention - on CT: mild gaseous distention of the anterior portions of the proximal to mid sigmoid colon which is probably positional - a mid sigmoid stricture is less likely. -- Out of room, will follow-up later today. NANNETTE PASTRANA Nov 19, 2018 09:47
--- NOTE | 2018-11-19 10:08 | PDOC ---
PROGRESS NOTES Subjective Subjective less confused today Objective Objective Vital Signs Date Time Temp Pulse Resp B/P (MAP) Pulse Ox O2 Delivery O2 Flow Rate FiO2 11/19/18 09:44 99 153/95 11/19/18 07:00 98.5 17 97 Room Air 98.5 Intake and Output 11/19/18 07:00 Intake Total 580 ml Output Total 0 ml Balance 580 ml Intake Oral 580 ml Output Urine Total 0 ml # Voids 3 # Bowel Movements 2 Physical Exam Abdomen: Other (soft and less distended ) Heart: Regular rate, Normal S1, Normal S2 HEENT: Atraumatic Lungs: Clear to auscultation MUSCULOSKELETAL: Osteoarthritic changes both hands Neck: Supple Neuro: Normal speech Psych/Mental Status: Other (agitated and confused ) Skin: No breakdown Assessment Assessment IMPRESSION: Abd distention subsided. 1. Severe hypokalemia. 2. Acute metabolic encephalopathy, due to UTI 3. Acute urinary tract infection, may be contributing to metabolic encephalopathy.IV Rocephin , waiting for cultures 4. Hypertension. 5. Diabetes mellitus type 2. 6. Gastroesophageal reflux disease. 7. Late effects of polio. PLAN:less confused CT scan atonic colon dulcolax suppositories prn,had small bms3 labs improving ,pot 4.0 urine c/s mixed blair bladder scan no retention spoke with RN d/c po antibiotics spoke with pts and son ,they want to take him home Geripsyche referral back up,does not qualify Neurology and GI consulted. CT head no cva , mri brain done this am. ct scan abd atonic colon ,no obstruction. plans to d/c home prognosis poor, decline in health had discussions with pts and son and aware of poor prognosis Comment Review of Relevant I have reviewed the following items purnima (where applicable) has been applied. Labs Laboratory Tests Test 11/18/18 11:11 11/18/18 16:18 11/18/18 20:42 11/19/18 04:55 Glucose (Fingerstick) 127 mg/dL (70-99) 132 mg/dL (70-99) 145 mg/dL (70-99) White Blood Count 9.9 x10^3/uL (4.0-11.0) Red Blood Count 4.87 x10^6/uL (4.30-5.70) Hemoglobin 14.8 g/dL (13.0-17.5) Hematocrit 46.2 % (39.0-53.0) Mean Corpuscular Volume 95 fL (79-100) Mean Corpuscular Hemoglobin 30 pg (25-35) Mean Corpuscular Hemoglobin Concent 32 g/dL (31-37) Red Cell Distribution Width 15.2 % (11.5-14.5) Platelet Count 363 x10^3/uL (140-400) Neutrophils (%) (Auto) 84 % (31-73) Lymphocytes (%) (Auto) 11 % (24-48) Monocytes (%) (Auto) 4 % (0-9) Eosinophils (%) (Auto) 0 % (0-3) Basophils (%) (Auto) 1 % (0-3) Neutrophils # (Auto) 8.3 x10^3uL (1.8-7.7) Lymphocytes # (Auto) 1.0 x10^3/uL (1.0-4.8) Monocytes # (Auto) 0.4 x10^3/uL (0.0-1.1) Eosinophils # (Auto) 0.0 x10^3/uL (0.0-0.7) Basophils # (Auto) 0.1 x10^3/uL (0.0-0.2) Sodium Level 139 mmol/L (136-145) Potassium Level 3.9 mmol/L (3.5-5.1) Chloride Level 104 mmol/L (98-107) Carbon Dioxide Level 12 mmol/L (21-32) Anion Gap 23 (6-14) Blood Urea Nitrogen 14 mg/dL (8-26) Creatinine 0.6 mg/dL (0.7-1.3) Estimated GFR (Cockcroft-Gault) 131.0 Glucose Level 168 mg/dL (70-99) Calcium Level 9.9 mg/dL (8.5-10.1) Test 11/19/18 07:39 Glucose (Fingerstick) 140 mg/dL (70-99) Microbiology 11/15/18 Urine Culture - Final, Complete 11/15/18 Urine Culture Result 1 (OLGA) - Final, Complete Medications Current Medications Cyanocobalamin (Vitamin B-12) 1,000 mcg DAILY PO Last administered on at 09:43; Start 11/18/18 at 12:00 Gadobutrol (Gadavist) 7.5 mmol 1X ONCE IV Last administered on 11/19/18at 08:54 ; Start 11/19/18 at 08:45; Stop 11/19/18 at 08:46; Status DC Potassium Chloride (Klor-Con) 40 meq DAILY PO Last administered on 11/19/18at 09 :43; Start 11/19/18 at 09:00; Stop 11/22/18 at 11:59 Vitals/I & O Vital Sign - Last 24 Hours 11/18/18 11/18/18 11/18/18 11/18/18 11:00 14:43 19:00 20:00 Temp 98.4 99.0 98.7 98.4 99.0 98.7 Pulse 112 103 106 Resp 18 18 20 B/P (MAP) 146/92 (110) 144/85 (104) 178/85 (116) Pulse Ox 97 97 97 O2 Delivery Room Air Room Air Room Air Room Air 11/18/18 11/19/18 11/19/18 11/19/18 23:04 03:15 07:00 09:42 Temp 98.4 98.4 98.5 98.4 98.4 98.5 Pulse 106 103 99 99 Resp 20 20 17 B/P (MAP) 132/99 (110) 140/85 (103) 153/95 (114) 153/95 Pulse Ox 97 97 97 O2 Delivery Room Air Room Air Room Air 11/19/18 09:44 Pulse 99 B/P (MAP) 153/95 Intake and Output 11/18/18 11/18/18 11/19/18 15:00 23:00 07:00 Intake Total 180 ml 400 ml Output Total 0 ml Balance 180 ml 400 ml 0 ml DEBRA ARNOLD MD Nov 19, 2018 10:08
[2018-11-19] MEDS ORDERED: LISI-334 PO (10:12)
[2018-11-19] MEDS ORDERED: AMLO5TAB10 PO (10:12)
--- NOTE | 2018-11-19 10:15 | DISCH ---
DISCHARGE WITH HOME HEALTH DISCHARGE INFORMATION: Discharge Date: Nov 19, 2018 Condition on Discharge: Stable CODE STATUS: Code Status: Full HOME HEALTH: Face to Face: I certify this patient is under my care and that I, or a nurse practitioner or physician's financial planning assistant working with me, had a face to face encounter that meets the physician face to face encounter requirements with this patient on [11/19/18] . Physical Therapy For: Evalulation/Treatment Occupational Therapy For: Evaluation/Treatment Home Health Aide For: Self-care FLEXOGRAPHIC PRINTING MACHINIST For: Community Resources Pt Meets Homebound Status: Poor coordination w/ amb., Frequent falls w/ injury , Limited distance walking POST DISCHARGE ORDERS: Activity Instructions for Disc: Resume previous activity, Activity as tolerated Weight Bearing Status after Di: As tolerated DIET AFTER DISCHARGE: ADA Wound/Incision Care: No wound care needed CHECKS AFTER DISCHARGE: Checks after discharge: Check blood press - daily, Check blood sugar, ac/hs, Weigh Yourself Daily TREATMENT/EQUIPMENT ORDERS: Adaptive Equipment Issued: Walker, Wheelchair CERTIFICATION STATEMENT: Certification Statement: Certification Statement: Based on the above finding, I certify that this patient is confined to the home and needs [facility] [place] [facility] care, physical therapy and/or speech therapy, or continues to need occupational therapy.~ This patient is under my care, and I have initiated the establishment of the plan of care.~ This patient will be followed by myself or a community physician who will periodically review the plan of care. Home Meds Active Scripts Aspirin (ASPIRIN EC) 325 Mg Tablet., 325 MG PO DAILY for 30 Days, TAB Prov:DEBRA ARNOLD MD 08/22/16 Reported Medications Sitagliptin Phos/Metformin Hcl (JANUMET 50-500 MG TABLET) 1 Each Tablet, 1 TAB PO BID, #60 TAB 5 Refills 08/21/16 Atorvastatin Calcium (ATORVASTATIN CALCIUM) 10 Mg Tablet, 10 MG PO HS for FOR CHOLESTEROL, #30 TAB 0 Refills 08/21/16 Amitriptyline Hcl (AMITRIPTYLINE HCL) 10 Mg Tablet, 10 MG PO DAILY 12/09/13 Ranitidine Hcl (RANITIDINE HCL) 150 Mg Capsule, 150 MG PO BID 12/09/13 DEBRA ARNOLD MD Nov 19, 2018 10:15
--- NOTE | 2018-11-19 10:56 | NUR ---
SW following. ELIER consulted for andrew psych eval and pt does not meet criteria for psych placement. ELIER faxed Rx for Erik lift and hospital bed to [facility]. Janene from [facility] reported she will notify ELIER when/if they are able to deliver equipment today. Biomedical ManagerMitali will assist in setting up home health. Will continue to follow. LOIDA DEE. Addendum: 11/19/18 at 1335 by CHERRY THAPA Spoke with Yevgeniy Chávez. They are requesting ICD codes for Dx. ELIER added codes on Rx and re-faxed orders. Spoke with and she reports pt is not able to come home if hospital bed is not delivered today. Will continue to follow.
[2018-11-19 11:00] VITALS: BP 150/120
[2018-11-19 15:00] VITALS: BP 173/78
--- NOTE | 2018-11-19 15:24 | NUR ---
SW following pt. Orders for hospital bed and Erik lift approved. Allegra from [facility] reported they will be delivering equipment soon. notified by RN. Pt will transport via [facility] at 1800. Rx for DME on chart. RN notified. DW with order planner Mitali.
[2018-11-19 15:30] VITALS: BP 172/103
--- NOTE | 2018-11-19 16:03 | PDOC ---
PROGRESS NOTES Assessment Metabolic encephalopathy, EEG findings consistent with this, MRI brain negative for acute stroke. Prior dementia Neurology also saw him in October this year for metabolic encephalopathy as well as possible transient ischemic attack with negative workup in August 2016 Post-polio syndrome Plan Continue ASA 325 mg daily. Continue Lipitor HS. Treat medical diseases. Vit B12 supplement. Agree with discharge plans Subjective Denies complaints Objective Vital Signs Date Time Temp Pulse Resp B/P (MAP) Pulse Ox O2 Delivery O2 Flow Rate FiO2 11/19/18 15:00 97.5 95 18 173/78 (109) 97 Room Air 97.5 11/19/18 08:00 3.0 Intake and Output 11/19/18 07:00 Intake Total 580 ml Output Total 0 ml Balance 580 ml Intake Oral 580 ml Output Urine Total 0 ml # Voids 3 # Bowel Movements 2 PHYSICAL EXAM Alert. He is on his cell phone saying that he is trying to get frenting, but the phone is not engaged. He does know that he is in the hospital but does not know its name, he does not know the date PERRL. EOMI. CN: no focal findings. Muscle tone: normal. Muscle strength: 4/5 arms, 2/5 legs DTR: 0-1+ Plantar reflex: Silent Gait: not examined in bed. Sensory exam: no abnormal findings. No cerebellar signs elicited. Review of Relevant I have reviewed the following items purnima (where applicable) has been applied. Labs Laboratory Tests Test 11/17/18 16:58 11/17/18 20:42 11/18/18 05:45 11/18/18 07:29 Glucose (Fingerstick) 117 mg/dL (70-99) 105 mg/dL (70-99) 138 mg/dL (70-99) Sodium Level 140 mmol/L (136-145) Potassium Level 4.7 mmol/L (3.5-5.1) Chloride Level 105 mmol/L (98-107) Carbon Dioxide Level 17 mmol/L (21-32) Anion Gap 18 (6-14) Blood Urea Nitrogen 9 mg/dL (8-26) Creatinine 0.5 mg/dL (0.7-1.3) Estimated GFR (Cockcroft-Gault) 161.7 Glucose Level 137 mg/dL (70-99) Calcium Level 9.8 mg/dL (8.5-10.1) Test 11/18/18 11:11 11/18/18 16:18 11/18/18 20:42 11/19/18 04:55 Glucose (Fingerstick) 127 mg/dL (70-99) 132 mg/dL (70-99) 145 mg/dL (70-99) White Blood Count 9.9 x10^3/uL (4.0-11.0) Red Blood Count 4.87 x10^6/uL (4.30-5.70) Hemoglobin 14.8 g/dL (13.0-17.5) Hematocrit 46.2 % (39.0-53.0) Mean Corpuscular Volume 95 fL (79-100) Mean Corpuscular Hemoglobin 30 pg (25-35) Mean Corpuscular Hemoglobin Concent 32 g/dL (31-37) Red Cell Distribution Width 15.2 % (11.5-14.5) Platelet Count 363 x10^3/uL (140-400) Neutrophils (%) (Auto) 84 % (31-73) Lymphocytes (%) (Auto) 11 % (24-48) Monocytes (%) (Auto) 4 % (0-9) Eosinophils (%) (Auto) 0 % (0-3) Basophils (%) (Auto) 1 % (0-3) Neutrophils # (Auto) 8.3 x10^3uL (1.8-7.7) Lymphocytes # (Auto) 1.0 x10^3/uL (1.0-4.8) Monocytes # (Auto) 0.4 x10^3/uL (0.0-1.1) Eosinophils # (Auto) 0.0 x10^3/uL (0.0-0.7) Basophils # (Auto) 0.1 x10^3/uL (0.0-0.2) Sodium Level 139 mmol/L (136-145) Potassium Level 3.9 mmol/L (3.5-5.1) Chloride Level 104 mmol/L (98-107) Carbon Dioxide Level 12 mmol/L (21-32) Anion Gap 23 (6-14) Blood Urea Nitrogen 14 mg/dL (8-26) Creatinine 0.6 mg/dL (0.7-1.3) Estimated GFR (Cockcroft-Gault) 131.0 Glucose Level 168 mg/dL (70-99) Calcium Level 9.9 mg/dL (8.5-10.1) Test 11/19/18 07:39 11/19/18 11:27 Glucose (Fingerstick) 140 mg/dL (70-99) 155 mg/dL (70-99) Laboratory Tests Test 11/18/18 16:18 11/18/18 20:42 11/19/18 04:55 11/19/18 07:39 Glucose (Fingerstick) 132 mg/dL (70-99) 145 mg/dL (70-99) 140 mg/dL (70-99) White Blood Count 9.9 x10^3/uL (4.0-11.0) Red Blood Count 4.87 x10^6/uL (4.30-5.70) Hemoglobin 14.8 g/dL (13.0-17.5) Hematocrit 46.2 % (39.0-53.0) Mean Corpuscular Volume 95 fL (79-100) Mean Corpuscular Hemoglobin 30 pg (25-35) Mean Corpuscular Hemoglobin Concent 32 g/dL (31-37) Red Cell Distribution Width 15.2 % (11.5-14.5) Platelet Count 363 x10^3/uL (140-400) Neutrophils (%) (Auto) 84 % (31-73) Lymphocytes (%) (Auto) 11 % (24-48) Monocytes (%) (Auto) 4 % (0-9) Eosinophils (%) (Auto) 0 % (0-3) Basophils (%) (Auto) 1 % (0-3) Neutrophils # (Auto) 8.3 x10^3uL (1.8-7.7) Lymphocytes # (Auto) 1.0 x10^3/uL (1.0-4.8) Monocytes # (Auto) 0.4 x10^3/uL (0.0-1.1) Eosinophils # (Auto) 0.0 x10^3/uL (0.0-0.7) Basophils # (Auto) 0.1 x10^3/uL (0.0-0.2) Sodium Level 139 mmol/L (136-145) Potassium Level 3.9 mmol/L (3.5-5.1) Chloride Level 104 mmol/L (98-107) Carbon Dioxide Level 12 mmol/L (21-32) Anion Gap 23 (6-14) Blood Urea Nitrogen 14 mg/dL (8-26) Creatinine 0.6 mg/dL (0.7-1.3) Estimated GFR (Cockcroft-Gault) 131.0 Glucose Level 168 mg/dL (70-99) Calcium Level 9.9 mg/dL (8.5-10.1) Test 11/19/18 11:27 Glucose (Fingerstick) 155 mg/dL (70-99) Microbiology 11/15/18 Urine Culture - Final, Complete 11/15/18 Urine Culture Result 1 (OLGA) - Final, Complete Medications Current Medications Amitriptyline HCl (Elavil) 10 mg DAILY PO Last administered on 11/18/18 09:04 ; Start 11/15/18 at 12:00; Stop 11/18/18 at 09:56; Status DC Aspirin (Ecotrin) 325 mg DAILY PO Last administered on 11/19/18 09:42; Start 11/15/18 at 11:00 Atorvastatin Calcium (Lipitor) 10 mg HS PO Last administered on 11/18/18at 21:56 ; Start 11/15/18 at 21:00 Famotidine (Pepcid) 20 mg BID PO Last administered on 11/19/18 09:44; Start at 11:00 Linagliptin (Tradjenta) 5 mg DAILY PO Last administered on 11/19/18 09:43; Start 11/15/18 at 12:00 Ceftriaxone Sodium (Rocephin) 1 gm Q24H IVP Last administered on 11/17/18at 10: 49; Start 11/15/18 at 11:00; Stop 11/17/18 at 15:01; Status DC Potassium Chloride/Dextrose/ Sod Cl 1,000 ml @ 250 mls/hr 1X ONCE IV Last administered on 11/15/18at 10:40; Start 11/15/18 at 11:00; Stop 11/15/18 at 14:59 ; Status DC Metformin HCl (Glucophage) 500 mg DAILY PO Last administered on 11/18/18 09:03 ; Start 11/15/18 at 12:00; Stop 11/18/18 at 09:56; Status DC Ceftriaxone Sodium (Rocephin) 1 gm Q24H IVP ; Start 11/15/18 at 11:00; Status UNV Enoxaparin Sodium (Lovenox 40mg Syringe) 40 mg Q24H SQ Last administered on at 16:14; Start 11/15/18 at 16:00 Acetaminophen (Tylenol) 650 mg PRN Q6HRS PRN PO MILD PAIN / TEMP; Start at 11:00 Potassium Chloride (Klor-Con) 40 meq TIDWMEALS PO Last administered on at 09:04; Start 11/15/18 at 12:00; Stop 11/18/18 at 10:07; Status DC Amlodipine Besylate (Norvasc) 5 mg DAILY PO Last administered on 11/19/18at 09: 44; Start 11/15/18 at 15:30 Clonidine HCl (Catapres) 0.1 mg PRN Q8HRS PRN PO ELEVATED BP, SEE COMMENTS Last administered on 11/16/18at 12:01; Start 11/15/18 at 15:15 Lactobacillus Rhamnosus (Culturelle) 1 cap BID PO Last administered on at 09:43; Start 11/16/18 at 21:00 Lisinopril (Prinivil) 5 mg DAILY PO Last administered on 11/17/18at 08:35; Start 11/16/18 at 16:00; Stop 11/17/18 at 14:30; Status DC Potassium Chloride (Klor-Con) 20 meq 1X ONCE PO Last administered on at 16:11; Start 11/16/18 at 15:45; Stop 11/16/18 at 15:49; Status DC Bisacodyl (Dulcolax Supp) 10 mg PRN DAILY PRN AR CONSTIPATION Last administered on 11/17/18at 10:09; Start 11/17/18 at 09:45; Stop 11/17/18 at 15:01 ; Status DC Bisacodyl (Dulcolax Supp) 10 mg PRN DAILY PRN AR CONSTIPATION; Start 11/17/18 at 10:00 Bisacodyl (Dulcolax Tab) 5 mg PRN DAILY PRN PO CONSTIPATION; Start 11/17/18 at 10:00 Lisinopril (Prinivil) 20 mg DAILY PO Last administered on 11/19/18 09:42; Start 11/18/18 at 09:00 Potassium Chloride (Klor-Con) 40 meq 1X ONCE PO Last administered on at 15:18; Start 11/17/18 at 14:45; Stop 11/17/18 at 14:46; Status DC Cefdinir (Omnicef) 300 mg BID PO Last administered on 11/19/18 09:42; Start at 21:00 Potassium Chloride (Klor-Con) 40 meq DAILY PO Last administered on 11/19/18at 09 :43; Start 11/19/18 at 09:00; Stop 11/22/18 at 11:59 Cyanocobalamin (Vitamin B-12) 1,000 mcg DAILY PO Last administered on 09:43; Start 11/18/18 at 12:00 Gadobutrol (Gadavist) 7.5 mmol 1X ONCE IV Last administered on 11/19/18 08:54 ; Start 11/19/18 at 08:45; Stop 11/19/18 at 08:46; Status DC Active Scripts Active Lisinopril 20 Mg Tablet 1 Tab PO DAILY Amlodipine Besylate 5 Mg Tablet 5 Mg PO DAILY 30 Days Aspirin Ec (Aspirin) 325 Mg Tablet.dr 325 Mg PO DAILY 30 Days Reported Janumet 50-500 Mg Tablet (Sitagliptin Phos/Metformin Hcl) 1 Each Tablet 1 Tab PO BID Atorvastatin Calcium 10 Mg Tablet 10 Mg PO HS Ranitidine Hcl 150 Mg Capsule 150 Mg PO BID Vitals/I & O Vital Sign - Last 24 Hours 11/18/18 11/18/18 11/18/18 11/19/18 19:00 20:00 23:04 03:15 Temp 98.7 98.4 98.4 98.7 98.4 98.4 Pulse 106 106 103 Resp 20 20 20 B/P (MAP) 178/85 (116) 132/99 (110) 140/85 (103) Pulse Ox 97 97 97 O2 Delivery Room Air Room Air Room Air Room Air 11/19/18 11/19/18 11/19/18 11/19/18 07:00 08:00 09:42 09:44 Temp 98.5 98.5 Pulse 99 99 99 Resp 17 B/P (MAP) 153/95 (114) 153/95 153/95 Pulse Ox 97 O2 Delivery Room Air Room Air O2 Flow Rate 3.0 11/19/18 11/19/18 11:00 15:00 Temp 97.4 97.5 97.4 97.5 Pulse 105 95 Resp 20 18 B/P (MAP) 150/120 (130) 173/78 (109) Pulse Ox 90 97 O2 Delivery Room Air Room Air Intake and Output 11/18/18 11/18/18 11/19/18 15:00 23:00 07:00 Intake Total 180 ml 400 ml Output Total 0 ml Balance 180 ml 400 ml 0 ml Images EEG consistent with encephalopathy. MRI brain: There is stable increased signal within the agusto on diffusion-weighted images due to T2 shine through artifact. There is no convincing restricted diffusion to suggest acute or subacute infarction. There is no susceptibility effect to suggest hemorrhage. There is no mass effect or midline shift. There is stable ventricular enlargement due to cerebral atrophy. This is not greater than expected for cerebral volume to suggest hydrocephalus. There is stable T2/FLAIR hyperintensity within the agusto and there are stable scattered focal and confluent areas of T2/FLAIR hyperintensity throughout the cerebral white matter. There is evidence of lens surgery. There is sphenoid sinus mucosal thickening. The mastoid air cells are clear. There are normal flow voids within the cerebral vessels. IMPRESSION: 1. No acute intracranial finding. 2. Scattered areas of signal change throughout the cerebral white matter, likely due to chronic small vessel disease. 3. Stable T2/FLAIR hyperintensity within the agusto. This is also nonspecific and likely due to chronic small vessel disease. This is not within limits to suggest an alternative etiology such as central pontine myelinolysis. 4. Cerebral atrophy with compensatory enlargement of the ventricles. 5. Sphenoid sinus disease. KANWAL BANKS MD Nov 19, 2018 16:03
[2018-11-19] MEDS: ENOXAPARIN 40 MG/0.4 ML SYRINGE. SQ SCH (16:35)
--- NOTE | 2018-11-19 18:42 | NUR ---
Discharge Note: DEEPALI RICKS Discharge instructions and discharge home medications reviewed with Family Member and a copy given. The patient was unable to sign discharge paperwork. Maggie, Charge Nurse signed packet along with myself. Patient discharged home with Home Health. Discontinued lines and drains: Peripheral IV intact. Patient discharged to Home w/services [facility]
--- NOTE | 2018-11-23 21:05 | PDOC ---
Provider Note Provider Note Discharge summary dictated.#[id number]. DEBRA ARNOLD MD Nov 23, 2018 21:05
--- NOTE | 2018-11-23 21:24 | DS ---
DATE OF DISCHARGE: 11/19/2018 REASON FOR ADMISSION TO THE HOSPITAL: Confusion, hypokalemia. CONSULTATIONS: Dr. Schmidt. Dr. Caldwell. Dr. Mart. PROCEDURES DONE: EEG. CT head. Brain MRI. Abdominal pelvic CT. HOSPITAL COURSE: The patient is a 78-year-old male who has a history of late effects of polio, has been declining in health. He was admitted a month ago with confusion. The workup was negative including MRI of the brain. [facility]. His potassium was low at 2.5, which was replaced by renal. No renal tubular problems explaining low potassium. His potassium was replaced and staying good. The patient also had abdominal distention, had a KUB that shows atonic colon. CT scan shows slight intrarenal calculi, nonobstructing. There is no blockage or obstruction. The patient's confusion persisted, but improving. Had EEG that shows metabolic encephalopathy. CT head was negative. Brain MRI is negative for acute stroke. I had an extensive discussion with the patient's and patient's son and would like to take him home with home health and possibly hospice down the road as the patient's condition has been declining and deteriorating. FINAL DIAGNOSES: 1. Confusion secondary to metabolic encephalopathy. 2. Chronic dementia, possible Alzheimer's type. 3. Hypokalemia, corrected. 4. Atonic colon. 5. Late effects of polio. 6. Diabetes. 7. Hypertension. 8. Hyperlipidemia. DISPOSITION: Home with home health possible hospice. PROGNOSIS: Guarded. DEBRA ARNOLD MD DR: RIZWANA/ki JOB#: [id number] / [id number]
== END 2018-11-19 18:46 | disposition home health service (06) | DRG 640 ==
LOC: ER 08:17 → 5 NORTH 10:24
PROVIDERS: ADMIT Internal Medicine; ATTEND Internal Medicine
DX: E87.6 Hypokalemia (principal); G93.41 Metabolic encephalopathy; N39.0 Urinary tract infection, site not specified; N20.2 Calculus of kidney with calculus of ureter; I10 Essential (primary) hypertension; E11.9 Type 2 diabetes mellitus without complications; K21.9 Gastro-esophageal reflux disease without esophagitis; B91 Sequelae of poliomyelitis; R14.0 Abdominal distension (gaseous); E11.51 Type 2 diabetes mellitus with diabetic peripheral angiopathy without gangrene; E53.8 Deficiency of other specified B group vitamins; E78.00 Pure hypercholesterolemia, unspecified; E78.5 Hyperlipidemia, unspecified; F03.90 Unspecified dementia, unspecified severity, without behavioral disturbance, psychotic disturbance, mood disturbance, and anxiety; F10.21 Alcohol dependence, in remission; G47.33 Obstructive sleep apnea (adult) (pediatric); M19.90 Unspecified osteoarthritis, unspecified site; K57.90 Diverticulosis of intestine, part unspecified, without perforation or abscess without bleeding; K70.30 Alcoholic cirrhosis of liver without ascites; K76.0 Fatty (change of) liver, not elsewhere classified; K64.9 Unspecified hemorrhoids; Z79.82 Long term (current) use of aspirin; Z82.3 Family history of stroke; Z82.49 Family history of ischemic heart disease and other diseases of the circulatory system; Z83.3 Family history of diabetes mellitus
CPT/HCPCS: 36415; 70450; 70553; 71045; 74018; 74176; 80048; 80053; 81001; 82962; 83735; 84132; 85025; 87086; 87641; 95816; 96365; 96375; A9585; J0696; J1650; 97530; 99285-25; G0378